=== PATIENT | female | born 1970 | race Caucasian/White ===

== ENCOUNTER 2016-09-15 06:53 | Emergency (ER) | payer BC ==
[~2016-09-15] VITALS: Ht 170.2 cm; Wt 129.7 kg
[~2016-09-15 06:53] MED LIST: AMLO-110 PO; BIOT1CAP9 PO; CHOL1000 PO; CLIN1LOT5 TOP; CLR10 PO; MTR600X PO; MULT-663 PO; OMEG12006 PO; OXYC-57 PO; SYN150 PO; VITBC PO; XPNIN INH; [UNRECOGNIZED DRUG - OTHER] PO
[2016-09-15 06:56] VITALS: TEMP 36.6; Ht 170.2 cm; Wt 129.7 kg
[2016-09-15] MEDS ORDERED: PROPARACAINE HCL 0.5% OP SOLN 15 ML BTL OP STA (06:58)
[2016-09-15] MEDS ORDERED: CIPROFLOXACIN HCL 0.3% OP SOLN 2.5 ML BTL OP STA (07:43)
--- NOTE | 2016-09-15 07:48 | EMERGENCY ROOM VISIT NOTE ---
History Report prepared by Vonnie: Tereso Cabrera Under the Supervision of: Dr. Paul Hagan M.D. First contact with patient: 06:58 Chief Complaint: EYE PAIN Stated Complaint: LEFT EYE PAIN History of Present Illness The patient is a 45 year old female who presents to the Emergency Room with complaints of a resolved "gritty" sensation in her left eye that started this morning upon waking. She states that she was rubbing her left eye this morning upon waking. The eye then suddenly felt like it was bulging and she felt a gritty sensation. She says that her eye would not close, and she had to compress her eye to feel like it was shut again. The patient denies any eye pain. Her pain has resolved after Alcaine was applied here in the ER. She states that this sensation in her eye has never happened before, and she says she has not had any trauma to the eye. The patient denies any issues with her sight, any changes in appetite, any hot flashes, or any changes in sleep. She does see an eye doctor for her glasses. She does not wear contacts. She says that she normally irrigates her eyes every night, but she did not last night. The patient has a past medical history of Grave's Disease in the 1980s. She does have a lot of allergies including dander, dust, and Bactrim antibiotic, but she denies being exposed to anything unusual or atypical recently. The patient has a history of thyroid issues. Source of History: patient Onset: This morning upon waking Position: eye (left) Quality: other (eye felt like it was bulging, "gritty" sensation) Timing: resolved Note: Associated symptoms: Denies any eye pain, sight issues, changes in appetite, hot flashes, or any changes in sleep. Review of Systems See HPI for pertinent positives & negatives. A total of 10 systems reviewed and were otherwise negative. Past Medical & Surgical Medical Problems: (1) Anxiety (2) HYPERTENSION NOS (3) HYPOTHYROIDISM NOS Family History Cancer Hypertension Social History Smoking Status: Never Smoker Marital Status: Housing Status: lives with family Occupation Status: employed Current/Historical Medications Scheduled Amlodipine (Norvasc), 5 MG PO QPM Biotin (Biotin Ultra Strength), 1 CAP PO QPM Cholecalciferol (Vitamin D3), 1,000 INTER.UNIT PO QPM Levothyroxine (Synthroid *), 0.15 MG PO QAM Loratadine (Claritin), 10 MG PO QAM Multiple Minerals W/ Vitamins (Citracal Plus), 1 TAB PO HS [place]-3 Fatty Acids ([place] 3), 1 CAP PO QPM Vitamin B Complex (Vitamin B Complex), 1 TAB PO QPM [Fiber Advantage], 1 TAB PO QAM Scheduled PRN Clindamycin Phosphate (Topical (Clindamycin Phosphate), 1 DOSE TOP BID PRN for PRN Ibuprofen (Ibuprofen), 600 MG PO Q6H PRN for Pain,GOMEZ,cramping,or fever Levalbuterol Tartrate (Xopenex Hfa), 2 PUFFS INH Q4 PRN for SOB/Wheezing Oxycodone/Acetaminophen 5MG/325MG (Percocet 5MG/325MG), 1-2 TAB PO Q4H PRN for Pain (pain scale 1-5) Allergies Coded Allergies: Penicillins (Verified Allergy, Intermediate, HIVES, 01/19/15) Sulfa Antibiotics (Verified Allergy, Intermediate, hives, 01/19/15) Cat Dander (Verified Allergy, Unknown, HAY FEVER, 01/19/15) Dog Dander (Verified Allergy, Unknown, HAY FEVER, 01/19/15) Dust (Verified Allergy, Unknown, HAY FEVER, 01/19/15) Molds and Smuts (Verified Allergy, Unknown, HAY FEVER, 01/19/15) POLLEN (Verified Allergy, Unknown, HAY FEVER, 01/19/15) Petrolatum (Verified Allergy, Unknown, RASH, ITCHING, 01/19/15) Physical Exam Vital Signs Date Time Temp Pulse Resp B/P Pulse Ox O2 Delivery O2 Flow Rate FiO2 09/15/16 08:00 88 18 185/112 97 09/15/16 06:56 36.6 95 20 159/100 98 Room Air Physical Exam GENERAL: Patient is a healthy-appearing well-nourished HEAD: Normocephalic atraumatic EYES: Ocular movements intact pupils equal and react to light. Diffuse dye uptake to cornea of left eye. OROPHARYNX mucous membranes are moist no exudates present no erythema or edema present NECK: Supple no nuchal rigidity CHEST: Good equal expansion LUNGS: Clear and equal to auscultation CARDIAC: Normal S1 and S2 ABDOMEN: Soft nontender no guarding BACK: No CVA tenderness EXTREMITIES: No pain upon palpation normal muscle strength in all groups no clubbing cyanosis or edema NEURO: Patient is following commands is answering questions appropriately. Alert and oriented x3 Cranial Nerves 2-12 grossly intact Medical Decision & Procedures Medications Administered Medications (Trade) Dose Ordered Sig/Erasmo Route Start Time Stop Time Status Last Admin Dose Admin Ciprofloxacin HCl (Ciprofloxacin 0.3% Op Soln) 1 drops NOW STAT OP 09/15/16 07:43 09/15/16 07:44 DC 09/15/16 07:56 1 DROPS ED Course 0658: Ordered Alcaine 0.5% Oph Soln 2 drops OP. 0720: Past medical records reviewed. The patient was evaluated in room A9B. A complete history and physical examination was performed. The patient verbally expressed understanding and agreement of the treatment plan. The patient will be discharged. 0743: Ordered Ciprofloxacin 0.3% Op Soln 1 drops OP. Medical Decision Differential diagnoses include: iritis, conjunctivitis, glaucoma. This is a 45-year-old female who presents emergency department complaining of left eye pain. On physical exam with fluorescein stain the patient has a large superficial area of erosion to the cornea. For this reason I will start the patient on antibiotics. She is allergic to sulfa so she was started on Cipro. In addition I also irrigated the patient's eye using normal saline solution as much as she could tolerate. The patient is refusing pain medications however I stressed the need for follow-up with her eye doctor. Patient was in agreement with the treatment plan. Impression Primary Impression: Chemosis Scribe Attestation The scribe's documentation has been prepared under my direction and personally reviewed by me in its entirety. I confirm that the note above accurately reflects all work, treatment, procedures, and medical decision making performed by me. Departure Information Dispostion Home / Self-Care Referrals Alexsandra Valderrama DO (PCP) Forms HOME CARE DOCUMENTATION FORM, IMPORTANT VISIT INFORMATION, WORK / SCHOOL INSTRUCTIONS Patient Instructions My [facility] Additional Instructions Use 1-2 drops q2 hours while awake Follow up with optho You have been examined and treated today on an emergency basis only. This is not a substitute for, or an effort to provide, complete comprehensive medical care. It is impossible to recognize and treat all injuries or illnesses in a single emergency department visit. It is therefore important that you follow up closely with Dr Valderrama. Call as soon as possible for an appointment. Thank you for your time and consideration. I look forward to speaking with you again soon. Please don't hesitate to call us if you have any questions. Problem Qualifiers Primary Impression: Chemosis Laterality: left Qualified Codes: H11.422 - Conjunctival edema, left eye
[2016-09-15 08:00] VITALS: BP 185/112; PULSE 88; O2SAT 97
== END 2016-09-15 08:03 | disposition home or self-care (01) ==
LOC: C.EDB 06:54 → C.EDA 08:03
DX: H11.422 Conjunctival edema, left eye (principal); F41.9 Anxiety disorder, unspecified; I10 Essential (primary) hypertension; E03.9 Hypothyroidism, unspecified; Z79.899 Other long term (current) drug therapy

== ENCOUNTER → 2016-09-16 | Outpatient (CLI) | payer BC ==
[2016-09-16 16:53] LABS: BLOOD UREA NITROGEN 14 mg/dl (7-18); BUN/CREATININE RATIO 17.1 (10-20); CALCIUM 8.8 mg/dl (8.5-10.1); CARBON DIOXIDE 29 mmol/L (21-32); CHLORIDE 103 mmol/L (98-107); CREATININE 0.81 mg/dl (0.60-1.20); GLUCOSE 75 mg/dl (70-99); POTASSIUM 4.1 mmol/L (3.5-5.1); SODIUM 140 mmol/L (136-145)
[2016-09-19 14:46] LABS: MICROSOMAL AB 2 IU/ML (<9)
== END | disposition home or self-care (01) ==
LOC: C.LABBC 15:15
PROVIDERS: ATTEND Family Medicine
DX: I10 Essential (primary) hypertension (principal); E03.9 Hypothyroidism, unspecified

== ENCOUNTER → 2017-05-19 | Outpatient (CLI) | payer BC ==
--- NOTE | 2017-05-19 16:16 | DIAGNOSTIC IMAGING REPORT ---
CT OF THE ORBITS WITHOUT CONTRAST CLINICAL HISTORY: GRAVE'S DISEASE COMPARISON STUDY: No previous studies for comparison. TECHNIQUE: Axial images through the orbits were obtained without intravenous contrast. Coronal reformats were viewed. FINDINGS: The extraocular muscles are symmetric in appearance. No orbital mass is identified on this unenhanced exam. Note is made of moderate to marked exophthalmos. Visualized portions of the brain parenchyma are suboptimally assessed on this unenhanced exam but appear unremarkable. There is minimal mucosal thickening of the sinuses. Mastoid air cells are clear. No significant osseous abnormalities are present. The superior ophthalmic veins are not dilated. IMPRESSION: 1. Normal CT appearance of the extraocular muscles. 2. Moderate to marked exophthalmos, a finding that is likely related to Graves' disease. Electronically signed by: Serg Mendiola M.D. 05/19/2017 4:14 PM Dictated Date/Time: 05/19/2017 4:09 PM
== END | disposition home or self-care (01) ==
LOC: C.CTS 15:39
PROVIDERS: ATTEND Ophthalmology Ophthalmic Plastic and Reconstructive Surgery
DX: E05.00 Thyrotoxicosis with diffuse goiter without thyrotoxic crisis or storm (principal)

== ENCOUNTER → 2017-06-30 | Outpatient (CLI) | payer BC ==
[2017-06-30 17:05] LABS: BASO % 0.3 %; BASO ABS # 0.03 K/uL (0-0.2); COMPLETE YES; EOS % 1.2 %; IG% 0.2 %; LYMPH % 30.7 %; LYMPH ABS # 2.81 K/uL (1.2-3.4); MEAN CELL VOLUME 93.9 fL (80-100); MEAN CORPUSCULAR HEMOGLOBIN 30.5 pg (25-34); MEAN CORPUSCULAR HGB CONC 32.5 g/dl (32-36); MEAN PLATELET VOLUME 9.7 fL (7.4-10.4); MONO % 7.7 %; NEUT % 59.9 %; PLATELET COUNT 323 K/uL (130-400); RED BLOOD COUNT 4.26 M/uL (4.2-5.4); WHITE BLOOD COUNT 9.14 K/uL (4.8-10.8)
== END | disposition home or self-care (01) ==
LOC: C.CPL 16:45
PROVIDERS: ATTEND Ophthalmology Ophthalmic Plastic and Reconstructive Surgery
DX: Z01.818 Encounter for other preprocedural examination (principal); H05.243 Constant exophthalmos, bilateral; E05.00 Thyrotoxicosis with diffuse goiter without thyrotoxic crisis or storm

== ENCOUNTER 2023-11-27 19:23 | Inpatient (IN) ==
[2023-11-27] MEDS ORDERED: VANCOMYCIN CONSULT ACTIVE PRN (20:49)
--- NOTE | 2023-11-27 20:59 | Emergency Department Note ---
Impression & Plan Left leg pain, Cellulitis, Leukocytosis, Anemia, Immunocompromised, Failure of outpatient treatment ED Provider Note NAME: AJ JAMESON AGE: 52 SEX: F : 1970 ARRIVES VIA: Walk-In INFORMANT: [Patient] ED PROVIDER(S): [Moo Akers MD] CHIEF COMPLAINT: Leg pain HISTORY OF PRESENT ILLNESS: The patient is a 52-year-old female who states that she noticed what she thought was a bug bite about 20 days ago along the left leg. She saw an orthopedist who felt it was likely a bite. The patient states that on the , she was placed on Keflex. This did not help. 3 days ago, she saw a physician who felt that she needed a change in medication. She was placed on doxycycline. Ultrasound was done of the leg and there was no DVT. The patient states that things are not getting better even despite the new antibiotic. She now has an area of erythema to the anterior left knee. The original area of erythema was to the lateral left tib-fib. The patient denies fever, she does have pain when she tries to walk. She is currently on steroids for a colitis flare. The patient was referred today to the ER because things are not improving. PMHx/PSHx/Social Hx: See Below PHYSICAL EXAM: GENERAL: Patient is in no acute distress. HEENT: No acute trauma, normocephalic atraumatic, mucous membranes moist, no nasal congestion. NECK: No stridor, no adenopathy, no meningismus, trachea is midline. LUNGS: Clear to auscultation bilaterally, no wheeze, no rhonchi, breath sounds equal. HEART: Mildly tachycardic, subtle systolic murmur, regular rhythm. ABDOMEN: Soft, nontender, no peritonitis. EXTREMITIES: No cyanosis, full range of motion of all the joints without pain or difficulty. The patient has a 6 to 8 cm area of erythema to the lateral left mid tib-fib. This area is tender to touch. There is some warmth. The erythema spread beyond the outlined margins. There is also a 3 cm area of erythema to the left anterior knee. NEUROLOGIC: Oriented x 3, no acute motor or sensory deficits, no focal weakness. SKIN: No jaundice, no diaphoresis. DIFFERENTIAL DIAGNOSIS: Abscess, deep tissue infection, cellulitis, failed outpatient management, tickborne illness, immunocompromise, among others. EMERGENCY DEPARTMENT PROCEDURES: MEDICAL DECISION MAKING: There is a mild leukocytosis at 13,000, this certainly could be consistent with infection. The patient was somewhat anemic with a hemoglobin of 9.4. There was an elevated platelet count at 602. A slight hypokalemia was seen, no need for emergent correction. Magnesium is low at 1.6. No renal failure. No concerning liver enzyme elevation. Lactic acid level was not elevated making severe sepsis less likely. Lyme disease testing was negative. Left leg CT imaging is currently pending. On exam, the patient was mildly tachycardic. She had a spreading left lower extremity cellulitis. She had erythema spreading beyond her outlined regions. The patient presents with around 20 days of symptoms. She has already been on Keflex and is now on doxycycline. Things continue to worsen. Patient was given IV cefepime, IV vancomycin. She was given IV saline and IV magnesium. Patient is in need of a hospital stay. She is failing outpatient treatment. She is immunocompromised and I do think IV antibiotic therapy is indicated. She may require surgical intervention if the CT imaging shows abscess. I did speak with the patient and case management, the on-call hospitalist was consulted. Prior/Outside records/notes reviewed: None Imaging/x-ray results per my interpretation: Chronic Medical/Social conditions affecting care: Colitis with current immunocompromise. Care/Management discussed with: Case management, the on-call hospitalist. Level of care consideration(s): After review of the information above and other included data: --I believe the patient requires escalation of care to admission DISPOSITION: Admission Past Med/Surg History Medical History Hemorrhoids Submucous leiomyoma of uterus Blood in stool reason for up coming colonoscopy History of COVID-19 x2, most recent Jul 2021 > not hospitalized Anxiety also gets very anxious about medical procedures Asthma does not use res inh > well controlled per pt Hypothyroidism Hypertension Eczema Allergic conjunctivitis Abnormal uterine bleeding (AUB) Fibroid, uterine resolved Enterocele Surgical History Hx of breast biopsy benign Hx of eye surgery bilat for thyroid eye issues History of tooth extraction Hx of colonoscopy History of ERCP 2012 Hx of cholecystectomy 2012 H/O: hysterectomy 2014 Family History (Updated 09/18/23 @ 15:12 by Maria Fernanda Bass RN) Mother Colorectal cancer Hypertension Environmental allergies Asthma Grandmother (Maternal) Stroke Father Skin cancer Environmental allergies Grandfather (Maternal) Myocardial infarction Other No family history of adverse response to anesthesia No family history of bleeding disorder Denies family history of Ovarian cancer Prostate cancer Breast cancer Social History Smoking Status: Never smoker Second Hand Exposure: No; Do You Dip or Chew Tobacco: No; Hx Alcohol Use: No Hx Substance Use: No Preferred Language: Uzbek Communication Ability: Effective Coatings Inspector Required: No Beliefs That Will Affect Care: None marital status: Current Living Situation: Spouse current occupational status: employed current occupation: Teacher Feels Safe at Home: Yes Assistive Devices: Glasses Allergies Allergies Allergy/AdvReac Type Severity Reaction Status Date / Time latex Allergy Intermediate Hives Verified 11/27/23 23:04 Penicillins Allergy Intermediate HIVES Verified 11/27/23 23:04 Sulfa (Sulfonamide Allergy Intermediate hives Verified 11/27/23 23:04 Antibiotics) petrolatum, yellow Allergy Unknown RASH, Verified 11/27/23 23:04 ITCHING Home Meds Home Medications Medication Instructions Recorded Confirmed amlodipine 2.5 mg tablet 2.5 mg PO DAILY 11/27/23 11/27/23 budesonide 3 mg 9 mg PO QAM 11/27/23 11/27/23 capsule,delayed,extended release cetirizine 10 mg tablet (Zyrtec) 10 mg PO DAILY 11/27/23 11/27/23 doxycycline hyclate 100 mg capsule 100 mg PO .DAILY FOR 10 DAYS 11/27/23 11/27/23 fluoxetine 40 mg capsule 40 mg PO DAILY 11/27/23 11/27/23 fluticasone propionate 50 1 spray intranasal DAILY PRN Nasal 11/27/23 11/27/23 mcg/actuation nasal Congestion spray,suspension (Flonase Allergy Relief) levothyroxine 175 mcg tablet 175 mcg PO QAM 11/27/23 11/27/23 (Synthroid) mesalamine 1.2 gram tablet,delayed 2.4 g PO DAILY 11/27/23 11/27/23 release Results & Data (ED) Vital Signs Vital Signs - 24 hr 11/27/23 19:32 11/27/23 19:49 11/27/23 20:00 Temperature 36.6 C Temperature Source Temporal Artery Scan Pulse Rate 95 H Pulse Rate [Finger] 87 85 Respiratory Rate 18 16 17 Respiratory Depth Normal Blood Pressure 146/87 H Blood Pressure [Right Arm] 151/93 H 154/89 H Blood Pressure Mean 106 Blood Pressure Mean [Right Arm] 112 110 Pulse Oximetry 97 97 97 Oxygen Delivery Method Room Air Room Air Sepsis Recent Fever Within 48 Hours No Sepsis New/Unexplained Change in Mental Status N/A Sepsis Action Taken by Nursing No Action Required 11/27/23 22:00 Temperature Temperature Source Pulse Rate Pulse Rate [Finger] 88 Respiratory Rate 17 Respiratory Depth Blood Pressure Blood Pressure [Right Arm] 150/99 H Blood Pressure Mean Blood Pressure Mean [Right Arm] 116 Pulse Oximetry 97 Oxygen Delivery Method Room Air Sepsis Recent Fever Within 48 Hours Sepsis New/Unexplained Change in Mental Status Sepsis Action Taken by [facility] Medications Current Medication List: was personally reviewed by me Laboratory Data Attestation: I reviewed the patient's lab results. 11/27/23 21:09 11/27/23 21:09 Lab Results 11/27/23 Range/Units 21:09 WBC 13.26 H (4.8-10.8) K/ul RBC 3.61 L (4.20-5.40) M/uL Hgb 9.4 L (12.0-16.0) g/dl Hct 30.7 L (37.0-47.0) % MCV 85.0 (80.0-100.0) fL MCH 26.0 (25.0-34.0) pg MCHC 30.6 L (32.0-36.0) g/dL RDW Std Deviation 49.1 H (36.4-46.3) fL RDW Coeff of Alphonse 15.8 H (11.5-14.5) % Plt Count 602 H (130-400) K/uL MPV 8.7 L (9.4-12.4) fL Immature Gran % (Auto) 0.6 % Neut % (Auto) 76.0 % Lymph % (Auto) 16.4 % [place] % (Auto) 5.8 % Eos % (Auto) 1.0 % Baso % (Auto) 0.2 % Neut # (Auto) 10.07 H (1.40-6.50) K/uL Lymph # (Auto) 2.18 (1.20-3.40) K/uL [place] # (Auto) 0.77 H (0.11-0.59) K/uL Eos # (Auto) 0.13 (0.00-0.50) K/uL Baso # (Auto) 0.03 (0.00-0.20) K/uL Immature Gran # (Auto) 0.08 (0.01-0.20) K/uL Sodium 137 (136-145) mmol/L Potassium 3.4 L (3.5-5.1) mmol/L Chloride 104 (98-107) mmol/L Carbon Dioxide 27 (21-32) mmol/L Anion Gap 6 (3-11) BUN 16 (6-23) mg/dl Creatinine 1.18 (0.6-1.2) mg/dl Est Cr Clr Drug Dosing 70.2 ml/min Est GFR ( Amer) 60.6 ml/min Est GFR (Non-Af Amer) 52.2 ml/min BUN/Creatinine Ratio 13.6 (10-20) Glucose 109 H (70-99(Fasting)) mg/dl Lactate 1.4 (0.4-2.0) mmol/L Calcium 9.0 (8.6-10.3) mg/dl Magnesium 1.6 L (1.7-2.4) mg/dl Total Bilirubin 0.2 (0.2-1.0) mg/dl AST 9 L (13-39) U/L ALT 8 (7-52) U/L Alkaline Phosphatase 73 (34-104) U/L Total Protein 7.8 (6.0-8.3) gm/dl Albumin 3.4 (3.4-5.0) gm/dl Globulin 4.4 H (2.5-4.0) gm/dl Albumin/Globulin Ratio 0.8 L (0.9-2) Lyme Disease Screen Negative (Negative) Administered Medications Vancomycin HCl 2,750 mg/ (Sodium Chloride) 555 mls @ 180 mls/hr IV NOW ONE Stop: 11/27/23 23:53 Last Admin: 11/27/23 22:56 Dose: 180 mls/hr Documented By: SKM Discontinued Medications Sodium Chloride (Nss) 1,000 mls @ 999 mls/hr IV .Q1H1M ONE Stop: 11/27/23 21:49 Last Infusion: 11/27/23 22:26 Dose: Infused Documented By: Admin: 11/27/23 21:20 Dose: 999 mls/hr Documented By: KELIN Cefepime HCl (Maxipime) 2,000 mg in 20 mls @ 5 mls/min IV NOW STA; Protocol Stop: 11/27/23 20:52 Last Admin: 11/27/23 21:20 Dose: 5 mls/min Documented By: KELIN Magnesium Sulfate/Dextrose (Magnesium Sulfate / D5w) 1 gm in 100 mls @ 100 mls/hr IV NOW STA Stop: 11/27/23 23:06 Last Admin: 11/27/23 22:26 Dose: Not Given Documented By: KELIN Discharge Plan Visit Data Chief Complaint: Leg Injury/Pain Stated Complaint: SWOLLEN LEG, POSSIBLE BUG BITE ED Provider: Moo Akers Discharge Problem: Left leg pain, Cellulitis, Leukocytosis, Anemia, Immunocompromised, Failure of outpatient treatment Patient Disposition: Admitted As Inpatient Condition: Fair Forms Stand Alone Forms: [facility] Prescriptions Prescriptions: No Action fluoxetine 40 mg capsule 40 mg PO DAILY levothyroxine [Synthroid] 175 mcg tablet 175 mcg PO QAM doxycycline hyclate 100 mg capsule 100 mg PO .DAILY FOR 10 DAYS Rx Instructions: started 11/24/23 cetirizine [Zyrtec] 10 mg Tablet 10 mg PO DAILY amlodipine 2.5 mg tablet 2.5 mg PO DAILY budesonide 3 mg capsule,delayed,extend.release 9 mg PO QAM mesalamine 1.2 gram tablet,delayed release (DR/EC) 2.4 g PO DAILY fluticasone propionate [Flonase Allergy Relief] 50 mcg/actuation [place],Suspension 1 spray INTRANASAL DAILY PRN (Reason: Nasal Congestion) Rx Instructions: administer into each nostril Referrals Referrals: Talita Das MD [Primary Care Provider] - Discharge Problem: Cellulitis Qualifiers: Site of cellulitis: extremity Site of cellulitis of extremity: lower extremity Laterality: left Qualified Code(s): L03.116 - Cellulitis of left lower limb Leukocytosis Qualifiers: Leukocytosis type: unspecified Qualified Code(s): D72.829 - Elevated white blood cell count, unspecified Anemia Qualifiers: Anemia type: unspecified type Qualified Code(s): D64.9 - Anemia, unspecified
[2023-11-27] MEDS: CEFEPIME 2,000 MG/20 ML VIAL IV STA (21:20)
[2023-11-27] MEDS: SODIUM CHLORIDE 0.9% 1,000 ML IV ONE (21:20)
[2023-11-27 21:45] LABS: Basophils # (auto) 0.03 K/uL (0.00-0.20); Basophils % (auto) 0.2 %; Eosinophils # (auto) 0.13 K/uL (0.00-0.50); Hematocrit (blood only) 30.7 % (37.0-47.0); Hemoglobin 9.4 g/dl (12.0-16.0); Immature Granulocytes # (auto) 0.08 K/uL (0.01-0.20); Immature Granulocytes % (auto) 0.6 %; Lymphocytes # (auto) 2.18 K/uL (1.20-3.40); Lymphocytes % (auto) 16.4 %; Mean Corpuscular Hgb Conc 30.6 g/dL (32.0-36.0); Mean Platelet Volume 8.7 fL (9.4-12.4); Monocytes # (auto) 0.77 K/uL (0.11-0.59); Monocytes % (auto) 5.8 %; Neutrophils # (auto) 10.07 K/uL (1.40-6.50); Platelet Count 602 K/uL (130-400); RDW Coefficient of Variation 15.8 % (11.5-14.5); RDW Standard Deviation 49.1 fL (36.4-46.3); Red Blood Count 3.61 M/uL (4.20-5.40); White Blood Count 13.26 K/ul (4.8-10.8)
[2023-11-27 22:04] LABS: Albumin Globulin Ratio 0.8 (0.9-2); Albumin Level 3.4 gm/dl (3.4-5.0); BUN Creatinine Ratio 13.6 (10-20); Bilirubin,Total 0.2 mg/dl (0.2-1.0); Creatinine Clr Calc Pharmacy 70.2 ml/min; Est GFR (African American) 60.6 ml/min; Est GFR (Non-African American) 52.2 ml/min; Globulin 4.4 gm/dl (2.5-4.0); Magnesium 1.6 mg/dl (1.7-2.4); Potassium 3.4 mmol/L (3.5-5.1); Total Protein 7.8 gm/dl (6.0-8.3)
[2023-11-27] MEDS: MAGNESIUM SULFATE / D5W 1 GM/100 ML BAG IV STA (22:26)
[2023-11-27] MEDS: VANCOMYCIN HCL 2,750 MG in SODIUM CHLORIDE 0.9% 500 ML IV ONE (22:56)
--- NOTE | 2023-11-27 23:52 | History & Physical Report ---
Date of Service November 27, 2023 Assessment & Plan (1) Cellulitis of left lower extremity: (2) Left knee pain: (3) Failure of outpatient treatment: (4) Immunocompromised: (5) Ulcerative colitis: (6) Anemia: (7) Anxiety: (8) Allergic rhinitis: (9) Hypertension: (10) Hypothyroidism: Plan Left lower extremity cellulitis- Failure of outpatient treatment with Keflex and then doxycycline Considered immunocompromised on budesonide Continue vancomycin IV and cefepime IV begun in the ED Lyme testing negative ordered by ED Add anaplasmosis, babesiosis and ehrlichiosis testing Patient had outpatient MRI scheduled for left knee, which will be done inpatient along with left lower extremity assess for possible muscle and/or bone of the left vulva due to immunocompromise state Ulcerative colitis- Continue mesalamine and budesonide Patient following with [facility], and has another appointment in a week or so to pursue more aggressive therapy, possibly Entyvio Status post 1 L normal saline in the ED Anemia- Likely secondary to blood loss from ulcerative colitis, which has been ongoing for several months now Consider tickborne illness such as babesiosis due to presence of rash, but no white that she was aware of Follow laboratory serially Hypokalemia/hypomagnesemia- Status post magnesium sulfate 1 g IV for magnesium level 1.6 For potassium 3.4, recheck laboratories in a.m. History of Present Illness Chief Complaint: The patient presents to the emergency department due to concerns regarding persistent left lower extremity redness, swelling and pain, and ongoing left knee pain, despite a course of Keflex, and then recent change to doxycycline, with negative DVT studies in the outpatient setting Primary Care Provider: Talita Das MD The patient is a 52-year-old female with a past medical history including ulcerative colitis on chronic budesonide and mesalamine, cellulitis of left lower extremity, anxiety, hypothyroidism, hypertension, allergic rhinitis and mild obesity. She began treatment for a left lower extremity infection on 11/13 with Keflex, and was then changed to doxycycline on 11/23, and that they had negative DVT studies bilateral lower extremities. Due to persistence and worsening of symptoms, she presents to the ED for further assessment. Allergies Allergy/AdvReac Type Severity Reaction Status Date / Time latex Allergy Intermediate Hives Verified 11/27/23 23:04 Penicillins Allergy Intermediate HIVES Verified 04/29/24 23:04 Sulfa (Sulfonamide Allergy Intermediate hives Verified 11/27/23 23:04 Antibiotics) petrolatum, yellow Allergy Unknown RASH, Verified 11/27/23 23:04 ITCHING nickel Allergy Itching Verified 11/28/23 03:25 Home Medications Medication Instructions Recorded Confirmed Type amlodipine 2.5 mg tablet 2.5 mg PO DAILY 11/27/23 11/27/23 History budesonide 3 mg 9 mg PO QAM 11/27/23 11/27/23 History capsule,delayed,extended release cetirizine 10 mg tablet (Zyrtec) 10 mg PO DAILY 11/27/23 11/27/23 History doxycycline hyclate 100 mg capsule 100 mg PO .DAILY FOR 10 DAYS 11/27/23 11/27/23 History fluoxetine 40 mg capsule 40 mg PO DAILY 11/27/23 11/27/23 History fluticasone propionate 50 1 spray intranasal DAILY PRN Nasal 11/27/23 11/27/23 History mcg/actuation nasal Congestion spray,suspension (Flonase Allergy Relief) levothyroxine 175 mcg tablet 175 mcg PO QAM 11/27/23 11/27/23 History (Synthroid) mesalamine 1.2 gram tablet,delayed 2.4 g PO DAILY 11/27/23 11/27/23 History release Past Med/Surg History Medical History (Updated 11/28/23 @ 06:04 by Blake Sanderson MD) Left knee pain Hemorrhoids Submucous leiomyoma of uterus Blood in stool reason for up coming colonoscopy History of COVID-19 x2, most recent Jul 2021 > not hospitalized Anxiety also gets very anxious about medical procedures Asthma does not use res inh > well controlled per pt Hypothyroidism Hypertension Eczema Allergic conjunctivitis Abnormal uterine bleeding (AUB) Fibroid, uterine resolved Enterocele Surgical History Hx of breast biopsy benign Hx of eye surgery bilat for thyroid eye issues History of tooth extraction Hx of colonoscopy History of ERCP 2013 Hx of cholecystectomy 2013 H/O: hysterectomy 2015 Family History (Updated 09/18/23 @ 15:12 by Maria Fernanda Bass RN) Mother Colorectal cancer Hypertension Environmental allergies Asthma Grandmother (Maternal) Stroke Father Skin cancer Environmental allergies Grandfather (Maternal) Myocardial infarction Other No family history of adverse response to anesthesia No family history of bleeding disorder Denies family history of Ovarian cancer Prostate cancer Breast cancer Social History Smoking Status: Never smoker Second Hand Exposure: No; Do You Dip or Chew Tobacco: No; Hx Alcohol Use: No Hx Substance Use: No Preferred Language: Argentine Communication Ability: Effective Finish Specialist Required: No Beliefs That Will Affect Care: None marital status: Current Living Situation: Spouse and Family Current Living Situation Comment: lives with and 2 adult children in 2 story home current occupational status: employed current occupation: Teacher Other Information That Helps Us Care for You: No Feels Safe at Home: Yes Safety Concerns: Feels Safe At This Time Assistive Devices: None Review of Systems Review of Systems: The patient denies chest pain, palpitations, shortness of breath, dyspnea on exertion, cough, sore throat, fevers, chills, sweats, weight change, fatigue, nausea, vomiting, blood in urine or stool, dysuria, urinary frequency or urgency, lightheadedness, dizziness, headache, memory loss, loss of consciousness, rash, abnormal bruising or bleeding, imbalance, focal weakness, numbness or tingling in arms or legs, back or neck pain, or night sweats. The review of systems is otherwise negative other than for that already noted above, and at least 10 systems have been reviewed. Physical Exam Physical Exam: The patient is awake, alert and oriented 3, well developed and well nourished, normocephalic and atraumatic, lying in bed and in no acute distress. HEENT--PERRL, EOMI, mucous membranes and oropharynx dry. Neck--supple. No JVD. No bruits. Thyroid normal, trachea midline, no adenopathy. Heart--normal S1 and S2. No murmurs, rubs or gallops. Lungs--clear bilaterally, no respiratory distress, no accessory muscle use. Abdomen--normal bowel sounds and soft. Nontender. Nondistended, no hernias or masses, no organomegaly. Extremities--no cyanosis or clubbing. No edema. There are good distal pulses b/l. Dermatologic--left lateral calf with erythema, induration and warmth extending to ankle. Left knee 2 small areas of erythema laterally. Areas marked for progression Neurologic--cranial nerves II through XII grossly intact. Rheumatologic--normal range of motion. Psychiatric--normal affect. Results & Data Results & Data Vital Signs (Past 12 Hours) Vital Signs Temp Pulse Pulse Resp BP BP Pulse Ox 11/27/23 22:00 88 17 150/99 H 97 11/27/23 20:00 85 17 154/89 H 97 11/27/23 19:49 87 16 151/93 H 97 11/27/23 19:32 36.6 C 95 H 18 146/87 H 97 O2 Del Method 11/27/23 22:00 Room Air 11/27/23 20:00 Room Air 11/27/23 19:49 11/27/23 19:32 Room Air Laboratory Results Laboratory Results WBC 12.36 K/ul (4.8-10.8) H 11/28/23 05:16 RBC 3.27 M/uL (4.20-5.40) L 11/28/23 05:16 Hgb 8.4 g/dl (12.0-16.0) L 11/28/23 05:16 Hct 27.6 % (37.0-47.0) L 11/28/23 05:16 MCV 84.4 fL (80.0-100.0) 11/28/23 05:16 MCH 25.7 pg (25.0-34.0) 11/28/23 05:16 MCHC 30.4 g/dL (32.0-36.0) L 11/28/23 05:16 RDW Std Deviation 48.7 fL (36.4-46.3) H 11/28/23 05:16 RDW Coeff of Alphonse 15.8 % (11.5-14.5) H 11/28/23 05:16 Plt Count 559 K/uL (130-400) H 11/28/23 05:16 MPV 8.7 fL (9.4-12.4) L 11/28/23 05:16 Immature Gran % (Auto) 0.9 % 11/28/23 05:16 Neut % (Auto) 74.0 % 11/28/23 05:16 Lymph % (Auto) 18.0 % 11/28/23 05:16 Hughes % (Auto) 5.8 % 11/28/23 05:16 Eos % (Auto) 1.1 % 11/28/23 05:16 Baso % (Auto) 0.2 % 11/28/23 05:16 Neut # (Auto) 9.14 K/uL (1.40-6.50) H 11/28/23 05:16 Lymph # (Auto) 2.22 K/uL (1.20-3.40) 11/28/23 05:16 Hughes # (Auto) 0.72 K/uL (0.11-0.59) H 11/28/23 05:16 Eos # (Auto) 0.14 K/uL (0.00-0.50) 11/28/23 05:16 Baso # (Auto) 0.03 K/uL (0.00-0.20) 11/28/23 05:16 Immature Gran # (Auto) 0.11 K/uL (0.01-0.20) 11/28/23 05:16 Sodium 137 mmol/L (136-145) 11/27/23 21:09 Potassium 3.4 mmol/L (3.5-5.1) L 11/27/23 21:09 Chloride 104 mmol/L (98-107) 11/27/23 21:09 Carbon Dioxide 27 mmol/L (21-32) 11/27/23 21:09 Anion Gap 6 (3-11) 11/27/23 21:09 BUN 16 mg/dl (6-23) 11/27/23 21:09 Creatinine 1.18 mg/dl (0.6-1.2) 11/27/23 21:09 Est Cr Clr Drug Dosing 70.2 ml/min 11/27/23 21:09 Est GFR ( Amer) 60.6 ml/min 11/27/23 21:09 Est GFR (Non-Af Amer) 52.2 ml/min 11/27/23 21:09 BUN/Creatinine Ratio 13.6 (10-20) 11/27/23 21:09 Glucose 109 mg/dl (70-99(Fasting)) H 11/27/23 21:09 Lactate 1.4 mmol/L (0.4-2.0) 11/27/23 21:09 Calcium 9.0 mg/dl (8.6-10.3) 11/27/23 21:09 Magnesium 1.6 mg/dl (1.7-2.4) L 11/27/23 21:09 Total Bilirubin 0.2 mg/dl (0.2-1.0) 11/27/23 21:09 AST 9 U/L (13-39) L 11/27/23 21:09 ALT 8 U/L (7-52) 11/27/23 21:09 Alkaline Phosphatase 73 U/L (34-104) 11/27/23 21:09 Total Protein 7.8 gm/dl (6.0-8.3) 11/27/23 21:09 Albumin 3.4 gm/dl (3.4-5.0) 11/27/23 21:09 Globulin 4.4 gm/dl (2.5-4.0) H 11/27/23 21:09 Albumin/Globulin Ratio 0.8 (0.9-2) L 11/27/23 21:09 Anaplasma Smear See Comment 11/27/23 21:09 Babesia Smear See Comment 11/27/23 21:09 Lyme Disease Screen Negative (Negative) 11/27/23 21:09 Code Status & VTE Plan Code Status Full code VTE Prophylaxis Plan VTE Prophylaxis will be ordered: Yes PG Care Time/CCT Total # of Minutes Spent Total Time Spent with Patient: Total time spent is greater than 50% in coordination of care (as documented) at patient's floor/unit and/or counseling patient: Coding Level of Care Code 47906 INT INP/OBS CARE 3/75MIN Diagnoses Cellulitis of left lower extremity L03.116 Left knee pain M25.562 Failure of outpatient treatment Z78.9 Immunocompromised D84.9 Ulcerative colitis K51.90 Anemia D64.9 Anemia type: unspecified type Anxiety F41.9 Allergic rhinitis J30.9 Hypertension I10 Hypothyroidism E03.9 (6) Anemia Anemia type: unspecified type Qualified Code(s): D64.9 - Anemia, unspecified
[2023-11-28] MEDS ORDERED: FLUTICASONE PROPIONATE NA SPR 16 GM BTL NAE PRN (03:04)
[2023-11-28] MEDS ORDERED: ONDANSETRON INJ 2 MG/ML 2 ML VIAL IV PRN (03:04)
[2023-11-28] MEDS ORDERED: ACETAMINOPHEN 325 MG TAB PO PRN (03:04)
[2023-11-28] MEDS ORDERED: VANCOMYCIN CONSULT ACTIVE PRN (03:04)
--- OUTSIDE RECORDS SUMMARY | 2023-11-28 05:55 | External Medical Summary | Continuity of Care Document ---
Author Name Unknown Organization [facility] [id number] [address] Address [address] [place] [address] [phone] Care Team Providers Care Service Order Taker Name Role Phone DasTalita Primary Care Physician [phone] [facility]counter [facility] [id number] Date(s): 11/24/23 - 11/24/[address], [address] [place] [address] [phone] Discharge Disposition: Home or Self Care Attending Physician: DO Verde Allison B Referring Physician: DO Verde Allison B Allergies, Adverse Reactions, Alerts Substance Reaction Severity Status penicillins Rash Active sulfa drugs Rash Active Cats upper resp symptoms Active Dogs Itching hives, upper resp problems Mild Active Dust upper resp symptoms Active Grass Nasal congestion Active Mold upper resp symptoms Active Trees upper resp symptoms Active Latex rash Active Petroleum Jelly rash and then eczema Acti ve wool rash and eczema Active Allergy Not found in Search 1 eczema rash Active 1polyester Immunizations Given and Recorded Vaccine Date Status Refusal Reason influenza virus vaccine, inactivated 06/13/22 Give n influenza virus vaccine, inactivated 04/23/20 Give n influenza virus vaccine, inactivated 06/14/19 Give n influenza virus vaccine, inactivated 06/12/17 Give n SARS-CoV-2 (COVID-19) mRNA BNT-162b2 vax 1 05/26/21 Recorded SARS-CoV-2 (COVID-19) mRNA BNT-162b2 vax 2 05/26/21 Recorded SARS-CoV-2 (COVID-19) mRNA BNT-162b2 vax 3 10/13/20 Recorded SARS-CoV-2 (COVID-19) mRNA BNT-162b2 vax 4 10/13/20 Recorded SARS-CoV-2 (COVID-19) mRNA BNT-162b2 vax 5 09/22/20 Recorded SARS-CoV-2 (COVID-19) mRNA BNT-162b2 vax 6 09/22/20 Recorded tetanus toxoids-diphtheria, Td (Adult) 7 01/13/16 Recorded tetanus toxoids-diphtheria, Td (Adult) 8 01/13/16 Recorded 1Result Comment: 2021-08-12: Historical information-source unspecified 2Result Comment: 2021-08-12: Historical information-source unspecified 3Result Comment: 2021-08-12: Historical information-source unspecified 4Result Comment: 2021-08-12: Historical information-source unspecified 5Result Comment: 2021-08-12: Historical information-source unspecified 6Result Comment: 2021-08-12: Historical information-source unspecified 7Result Comment: 2021-08-12: Historical information-source unspecified 8Result Comment: 2021-08-12: Historical information-source unspecified Medications amLODIPine 2.5 mg oral tablet Start: 10/18/23 16:02:00 EDT, 1 tab, PO, Daily, Disp# 30 tab, Refills: 6, Pharmacy: [facility] #[id number] Start Date: 10/18/23 Status: Ordered budesonide 3 mg oral delayed release capsule Start: 11/24/23 8:39:00 EDT, 3 cap, Per GI at [facility]. Start Date: 11/24/23 Status: Ordered doxycycline hyclate 100 mg oral capsule Start: 11/24/23 8:21:00 EDT, 1 cap, PO, Daily, Disp# 10 cap, Pharmacy: [id number] Start Date: 11/24/23 Stop Date: 12/04/23 Status: Ordered FLUoxetine 40 mg oral capsule Start: 08/28/23 12:11:00 EST, 1 cap, PO, Daily, Disp# 30 cap, Refills: 6, Pharmacy: [facility] #[id number] Start Date: 08/28/23 Status: Ordered levalbuterol CFC free 45 mcg/inh inhalation aerosol Start: 07/07/23 11:31:00 EST, See Instructions, Disp# 15 g, Refills: 1, inhale 1 puff every 4 hoursif needed for wheezing, Pharmacy: [facility] #[id number] Start Date: 07/07/23 Status: Ordered levothyroxine 175 mcg (0.175 mg) oral tablet Start: 07/26/23 9:11:00 EST, 1 tab, PO, Daily, Disp# 30 tab, Refills: 5, Brand Medically Necessary,Pharmacy: [facility] #[id number] Start Date: 07/26/23 Status: Ordered mesalamine 1.2 g oral delayed release tablet Start: 07/05/23 8:50:00 EST, 2 tab, PO, bid, Disp# 360 tab, Refills: 3, Pharmacy: [facility] #[id number] Start Date: 07/05/23 Stop Date: 06/29/24 Status: Ordered mesalamine 4 g/60 mL rectal enema Start: 09/27/23 16:44:00 EST, 60 mL, SD, qhs, Disp# 5,400 mL, Refills: 3, Note to Pharmacy: Fax to [facility] [phone] Start Date: 09/27/23 Stop Date: 09/21/24 Status: Ordered traMADol 50 mg oral tablet Start: 07/26/23 9:16:00 EST, 1 tab, PO, q8h, Disp# 45 tab, Refills: 1, PRN: as needed for pain, Pharmacy: [facility] #[id number] Start Date: 07/26/23 Status: Ordered triamcinolone 0.1% topical lotion Start: 05/25/23 22:06:00 EDT, 1 appl, topical, bid, Disp# 60 mL, Refills: 1, To invovled rash BID PRN, Pharmacy: [facility] #[id number] Start Date: 05/25/23 Status: Ordered Problem List Condition Confirmation Course Effective Dates Status H ealth Status Informant Acne rosacea Confirmed Active Allergic eczema Confirmed Active Alopecia Confirmed Active Anxiety Confirmed Active Asthma Confirmed Active Chronic headache Confirmed Active Colonic polyp Confirmed Active Diverticulitis Confirmed Active Eczema Confirmed Active Hemorrhoids, internal Confirmed Active History of COVID-19 Confirmed Active Borderline hyperlipidemia Confirmed Active Hypertension Confirmed Active Hypothyroidism Confirmed Active Lipoma of ileocecal valve Confirmed Active Headache, migraine Confirmed Active Breast cancer screening by mammogram Confirmed Active Seasonal allergies Confirmed Active Seborrheic keratoses Confirmed Active Typhlitis Confirmed Active Ulcerative colitis Confirmed Active Loss of weight Confirmed Active Procedures Procedure Date Related Diagnosis Body Site Status Colonoscopy 1, 2, 3 02/01/23 Compl eted Mammogram 4 02/01/22 Completed Mammogram 5 06/26/[address] of orbits 6 05/19/17 Completed Colonoscopy 7 01/28/17 Completed colonoscopy 8 01/28/17 Completed gallbladder removed 12/23/12 Compl eted Abdominal hysterectomy 9 Completed Cholecystectomy 10 Comple lisandro EXPLR/DECOMPRESS EYE SOCKET Completed H/O: hysterectomy 11 Comp leted [address] [place] [address] Impression: 1. The examined portion of the ileum was normal 2. Congested, erythematous, friabe (with contact bleeding) granular and hemorrhagic mucosa in the cecum. Biopsied 3. The spenic flexure, transverse colon, hepatic flexure and ascending colon are normal 4. Congested, erythematous, friable (with contact bleeding), granular and hemorrhagic mucosa in therectum, in the recto-sigmoid colon, in the sigmoid colon and in the descending colon. Biopsied. 2Pathology: Cecum, "cecal colon biopsy: Moderate to severe, chronic active typhlitis with features consistent witn inflammatory bowel. disease, specifically ulcerative colitis is seen. Dysplasia nand Carcinoma are NOT seen. The endoscopic finding of congestion, erythema, friability, hemorrhage and gr anularity of the cecal mucosa is noted. Colon, "left colon biopsy" Moderate, chronic active colitis with features consistent witn inflammatory bowel disease, specifically ulcerative colitis, is seen. The endoscopic finding of congestion, erythem, friability, hemorrhage and granularity of the rectosigmoid 3Repeat in 5 years. 4No mammographic evidence of malignancy. 1 year screening mammogram is recommended. 5No mammographic evidence of malignancy. 1 year screening is recommended. 6IMPRESSION: 1. Normal CT appearance of the extraocular muscles. 2. Moderate to marked exophthalmos, a finding that is likely related to graves 7Noted by Dr. Talita Das Normal, next in 5 yrs 8normal, next in 5 yrs. 9fibroids/menorrhagia [age] years old [age] years old. Results Radiology Reports * Exam Date Time Procedure Performing Provider Status 11/24/23 1:39 PM VL Lower Ext Venous Duplex Left Zaira Bain; Final Notes: (VL Lower Ext Venous Duplex Left) Reason For Exam: Pain, area of cellulitis, evaluated for DVT/abscess VL Lower Ext Venous Duplex Left [facility] FINAL REPORT Name: AJ JAMESON : 1970 Visit: [id number] Date: 24 Nov 2023 TYPE OF TEST: Peripheral Venous Testing REASON FOR TEST Red, painful area on left posterior medial calf INTERPRETATION/FINDINGS Venous duplex imaging performed of the LEFT lower extremity: 1. No evidence of deep or superficial vein thrombosis identified in the left common femoral, femoral, deep femoral, popliteal, gastrocnemius, posterior tibial, peroneal, great saphenous or small saphenous veins. 2. No abnormalities noted in the contralateral common femoral vein. No prior exam available for comparison. IMPRESSION/COMMENTS I have personally reviewed the data relevant to the interpretation of this study. TECHNOLOGIST: Zaira MONTES DE OCA, RD, RVT PHYSICIAN: Jyotsna Love MD Signed: 11/24/2023 05:33 PM Final Dictated by:MD Love Tanya R Dictated DT/TM:11/24/2023 5:33 Signed by:MD Love Tanya R Signed (Electronic Signature):11/24/2023 5:33 p Transcribed by:TRF Social History Social History Type Response Smoking Status Never smoked cigaret lucía Sex Patient Care team information Care Team Personnel Name: MD Das Amy L Position: Physician - Family Med Member Role: Primary Care Provider Address: Address: [address] [place] [address] Care Team Related Persons Name: NEDA TUCKER Address: home No Address Provided Name: RYAN JAMESON Address: home [address] [facility] [phone] Name: RYAN JAMESON Address: home [address] [place] [address] [phone] Name: RITA JAMESON Address: [facility] Address: home [address] [place], [place] [id number]
--- OUTSIDE RECORDS SUMMARY | 2023-11-28 05:55 | External Medical Summary | Continuity of Care Document ---
Author Name Unknown Organization [address] Address [address] [place] [id number] Care Team Providers Care Flight Operations Specialist Name Role Phone Talita Das Primary Care Physician [phone] Encounter [facility] [id number] Date(s): 11/24/23 - 11/24/[address] [address] [phone] Encounter Diagnosis Cellulitis, leg(Discharge Diagnosis) - 11/24/23 Discharge Disposition: Home or Self Care Attending Physician: DO Verde Allison B Allergies, Adverse [...] in Search 1 eczema rash Active 1polyester Assessment and Plan Extracted from: Title:Office Visit Note Author:DO Verde Allis on B Date:11/24/23 Cellulitis, leg Stop the Keflex. Will add in doxycycline for improved coverage. Does not appear to beLyme, will check Lyme titers that she notices thebeginning of October. CBC and CMP, she recently had this doneApril 18 at [facility], but will repeat. Did discuss possibly ER. No fluctuance noted, but she does have tenderness. She was worried that the redness. She does admit that the budesonide appears to be helpingthe redness and she has been on this for 2 days. Willmonitor symptoms. Follow-up in the office Monday or Monday. To the ER with any severe signs or symptoms. Will get a stat ultrasound to rule out any underlying abscess/fluid collection. She does not have any calf tenderness. Patient declined ER at this time. She has a dentist appointment today. Will start doxycycline and stat ultrasound. To the ER with any severe signs or symptoms. Warning signs extensively discussed. Blood work pending. Immunizations Given and Recorded Vaccine Date Status [...] Daily, Disp# 30 tab, Refills: 6, [facility]acy: [facility] #[id number] Start Date: 10/18/23 Status: Ordered budesonide 3 mg oral delayed release capsule Start: 11/24/23 8:39:00 EDT, 3 cap, Per GI at [facility]. Start Date: 11/24/23 Status: Ordered doxycycline hyclate 100 mg oral capsule Start: 11/24/23 8:21:00 EDT, 1 cap, PO, Daily, Disp# 10 cap, Pharmacy: [id number] Start Date: 11/24/23 Stop Date: 12/04/23 Status: Ordered FLUoxetine 40 mg oral capsule Start: 08/28/23 12:11:00 EST, 1 cap, PO, Daily, Disp# 30 cap, Refills: 6, Pharmacy: [facility] #[id number] Start Date: 08/28/23 Status: Ordered levalbuterol CFC free 45 mcg/inh inhalation aerosol Start: 07/07/23 11:31:00 EST, See Instructions, Disp# 15 g, Refills: 1, inhale 1 puff every 4 hoursif needed for wheezing, Pharmacy: [facility] #[id number] Start Date: 07/07/23 Status: Ordered levothyroxine 175 mcg (0.175 mg) oral tablet Start: 07/26/23 9:11:00 EST, 1 tab, PO, Daily, Disp# 30 tab, Refills: 5, Brand Medically Necessary,Pharmacy: [facility] #[id number] Start Date: 07/26/23 Status: Ordered mesalamine 1.2 g oral delayed release tablet Start: 07/05/23 8:50:00 EST, 2 tab, PO, bid, Disp# 360 tab, Refills: 3, Pharmacy: [facility] #[id number] Start Date: 07/05/23 Stop Date: 06/29/24 Status: Ordered mesalamine 4 g/60 mL rectal enema Start: 09/27/23 16:44:00 EST, 60 mL, NH, qhs, Disp# 5,400 mL, Refills: 3, Note to Pharmacy: Fax to [facility] [phone] Start Date: 09/27/23 Stop Date: 09/21/24 Status: Ordered traMADol 50 mg oral tablet Start: 07/26/23 9:16:00 EST, 1 tab, PO, q8h, Disp# 45 tab, Refills: 1, PRN: as needed for pain, Pharmacy: [facility] #[id number] Start Date: 07/26/23 Status: Ordered triamcinolone 0.1% topical lotion Start: 05/25/23 22:06:00 EDT, 1 appl, topical, bid, Disp# 60 mL, Refills: 1, To invovled rash BID PRN, Pharmacy: [facility] #[id number] Start Date: 05/25/23 Status: Ordered Mental Status 11/24/23 Barriers to Learning one year None evide nt Mandatory Health Literacy Documentation Yes Health Literacy Communication Barriers N ever Primary Language Bulgarian Problem List Condition Confirmation Course Effective Dates [...] Confirmed Active Loss of weight Confirmed Active Diagnosis Diagnosis Type Effective Dates Health Status Cl inical Service Informant Cellulitis, leg Discharge Diagnosis 11/24/23 Non-Specified Procedures Procedure Date Related Diagnosis Body Site Status Colonoscopy 1, 2, 3 02/01/23 Compl eted Mammogram 4 02/01/22 Completed Mammogram 5 06/26/[address] of orbits 6 05/19/17 Completed Colonoscopy 7 01/28/17 Completed colonoscopy 8 01/28/17 Completed gallbladder removed 12/23/12 Compl eted Abdominal hysterectomy 9 Completed Cholecystectomy 10 Comple lisandro EXPLR/DECOMPRESS EYE SOCKET Completed H/O: hysterectomy 11 Comp leted [address] [place] [address] Impression: 1. The examined portion of the [...] Colon, "left colon biopsy" Moderate, chronic active colitiswith features consistent witn inflammatory bowel disease, specifically ulcerative colitis, is seen.The endoscopic finding of congestion, erythem, friability, hemorrhage [...] 9fibroids/menorrhagia [age] years old [age] years old. Vital Signs Most recent to oldest [Reference Range]: 1 Patient Weight 108.1 kg (11/24/23 7:59 AM) Temperature [36.5-37.9 DegC] 36.9 DegC (11/24/23 7:59 AM) Heart Rate 87 bpm (11/24/23 7:59 AM) Respiratory Rate 17 br/min (11/24/23 7:59 AM) Blood Pressure 120/74mmHg (11/24/23 7:59 AM) Social History Social History Type Response Smoking Status Never smoked cigaret lucía Sex FCM Outpt Note * DO Verde Allison B: PERFORM Event Display: FCM Outpt Note Authored Date: [id number] Chief Complaint Concerns with left calf insect bite. Was on 11/13 , given script for antibiotic. Bite still red and inflamed. History of Present Illness Patient is a 52 year old female that presents to the office for an acute visit. She was recently seen in the office in November 13 for a possible insect bite on the LLE. She reports that she had noticeda red area on theleftlateralcalf 8 days prior to her appointment on March 15. She denied any associated symptomsat that time. She was givenKeflex 500 mg4 times dailyx 10 days. Overallsymptoms have stayed the same, but similar redness. Of notesannette [facility] and states that she feels that it is helping with the redness. She denies any fevers, chills, joint pain. She denies any difficulty walking. She denies any drainage. She does have issues with herleftknee and had been on doxycycline in August for a fall. Review of Systems Constitutional: No fever, No chills, No fatigue._ Respiratory: No shortness of breath, No cough, No wheezing. _ Cardiovascular: no lightheadedness/presyncope, No chest pain, No palpitations._ Gastrointestinal: No nausea, No vomiting, No diarrhea, No constipation, No heartburn, No abdominal pain._ Musculoskeletal: No back pain, No neck pain, No joint pain, No muscle pain, No decreased range ofmotion, No trauma._ Skin: Rash Neurologic:No abnormal balance, No numbness, No tingling, No headache._ Physical Exam Vitals & Measurements T:36.9C HR:87(Monitored) RR:17 BP:120/74 SpO2:98% WT:108.1kg WT:108.100kg(Dosing) PHQ2 Data(Data Documented on:11/24/2023 07:59) Emotional health assessment NEGATIVE General: _Alert and oriented, No acute distress HEENT: _ Normocephalic, TM clear, Nl gross hearing, moist oral mucosa _ Cardiovascular: _Normal rate, Regular rhythm, No murmur, No gallop. Respiratory: _Lungs are clear to auscultation, Respirations are non-labored, Breath sounds are equal Gastrointestinal: _Soft, Non-tender, Non-distended, Normal bowel sounds. Musculoskeletal: _Normal range of motion,normal strength. Neurologic:Normal sensory, Normal motor function, CN II-XII grossly intact. Integumentary:Reviewed measurements from previous. Photo in chart. Appears to beabout the sameerythema with dusky center at 3 x 3 cm with a dusky center and about 5/6 cm x 6-1/2 cm. Thereismarkings around therash that the patient states that she placed approximately3 to 4 days ago and the rash has not traveled outside of the area. Psych: Mood-affect congruence. Reports no SI/HI. Speech is of normal pace and content Assessment/Plan Cellulitis, leg Stop the Keflex. Will add in doxycycline for improved coverage. Does not appear to beLyme, will check Lyme titers that she notices thebeginning of October. CBC and CMP, she recently had this doneApril 18 at [facility], but will repeat. Did discuss possibly ER. No fluctuance noted, but she does have tenderness. She was worried that the redness. She does admit that the budesonide appears to be helpingthe redness and she has been on this for 2 days. Willmonitor symptoms. Follow-up in the office Monday or Monday. To the ER with any severe signs or symptoms. Will get a stat ultrasound to rule out any underlying abscess/fluid collection. She does not have any calf tenderness. Patient declined ER at this time. She has a dentist appointment today. Will start doxycycline and stat ultrasound. To the ER with any severe signs or symptoms. Warning signs extensively discussed. Blood work pending. Problem List/Past Medical History Ongoing Acne rosacea Allergic eczema Alopecia Anxiety Asthma Borderline hyperlipidemia Breast cancer screening by mammogram Chronic headache Colonic polyp Diverticulitis Eczema Headache, migraine Hemorrhoids, internal History of COVID-19 Hypertension Hypothyroidism Lipoma of ileocecal valve Loss of weight Seasonal allergies Seborrheic keratoses Typhlitis Ulcerative colitis Procedure/Surgical History Colonoscopy| Service Date: 02/01/2023Mammogram| Service Date: 02/01/2022Mammogram| ServiceDate: 06/26/2019CT of orbits| Service Date: 05/19/2017Colonoscopy| Service Date: 01/28/2017colonoscopy| Service Date: 01/28/2017gallbladder removed| Service Date: 12/23/2012H/O: hystere ctomyCholecystectomyAbdominal hysterectomyEXPLR/DECOMPRESS EYE SOCKET Medications amLODIPine(amLODIPine 2.5 mg oral tablet), 2.5 mg= 1 tab, PO, Daily, 6 refills budesonide(budesonide 3 mg oral delayed release capsule), 9 mg= 3 cap doxycycline(doxycycline hyclate 100 mg oral capsule), 100 mg= 1 cap, PO, Daily FLUoxetine(FLUoxetine 40 mg oral capsule), 40 mg= 1 cap, PO, Daily, 6 refills levalbuterol(levalbuterol CFC free 45 mcg/inh inhalation aerosol), See Instructions, 1 refills levothyroxine(levothyroxine 175 mcg (0.175 mg) oral tablet), 175 mcg= 1 tab, PO, Daily, 5 refills mesalamine(mesalamine 4 g/60 mL rectal enema), 4 g= 60 mL, NH, qhs, 3 refills mesalamine(mesalamine 1.2 g oral delayed release tablet), 2.4 g= 2 tab, PO, bid, 3 refills traMADol(traMADol 50 mg oral tablet), 50 mg= 1 tab, PO, q8h, PRN, 1 refills triamcinolone topical(triamcinolone 0.1% topical lotion), 1 appl, topical, bid, 1 refills Allergies Dogs (Mild)Itching, hives, upper resp problems Allergy Not found in Searcheczema, rash Catsupper resp symptoms Dustupper resp symptoms GrassNasal congestion Latexrash Moldupper resp symptoms Petroleum Jellyrash and then eczema Treesupper resp symptoms penicillinsRash sulfa drugsRash woolrash and eczema Social History Smoking Status Never smoked cigarettes Alcohol Frequency:1-2 times per year Exercise Duration (average number of minutes):45 Times per week:1-2 times/week Exercise type:Walking Tobacco Use:Never smoker Family History Cancer of colon: Mother. Heart attack: MGF. Hypertension: Mother and MGM. Melanoma in situ of skin: Father. Stroke: MGM. Health Status Family Member(s) Immunizations Vaccine Date Status influenza virus vaccine, inactivated 06/13/2022 Given SARS-CoV-2 (COVID-19) mRNA BNT-162b2 vax 05/26/2021 Recorded Comments : 2021-08-12: Historical information-source unspecified SARS-CoV-2 (COVID-19) mRNA BNT-162b2 vax 05/26/2021 Recorded Comments : 2021-08-12: Historical information-source unspecified SARS-CoV-2 (COVID-19) mRNA BNT-162b2 vax 10/13/2020 Recorded Comments : 2021-08-12: Historical information-source unspecified SARS-CoV-2 (COVID-19) mRNA BNT-162b2 vax 10/13/2020 Recorded Comments : 2021-08-12: Historical information-source unspecified SARS-CoV-2 (COVID-19) mRNA BNT-162b2 vax 09/22/2020 Recorded Comments : 2021-08-12: Historical information-source unspecified SARS-CoV-2 (COVID-19) mRNA BNT-162b2 vax 09/22/2020 Recorded Comments : 2021-08-12: Historical information-source unspecified influenza virus vaccine, inactivated 04/23/2020 Given influenza virus vaccine, inactivated 06/14/2019 Given influenza virus vaccine, inactivated 06/12/2017 Given tetanus toxoids-diphtheria, Td (Adult) 01/13/2016 Recorded Comments : 2021-08-12: Historical information-source unspecified tetanus toxoids-diphtheria, Td (Adult) 01/13/2016 Recorded Comments : 2021-08-12: Historical information-source unspecified Recommendations Health Maintenance Pending(in the next year) OverDue Adult Influenza Vaccine due01/27/23and every 1year Due Adult COVID-19 Vaccination due11/24/23Unknown Frequency Adult Social Determinants of Health Screening due11/24/23Unknown Frequency Hepatitis C Screening due11/24/23One-time only Pneumococcal Vaccine Adults and Adolescents with Chronic Illness due11/24/23One-time only Shingles Vaccine due11/24/23One-time only Due In Future Breast Cancer Screening not due until02/02/24and every 731day Satisfied(in the past 1 year) Satisfied Body Mass Index on09/14/23.Satisfied by HANDY Melton Courtney D Electronic Signature on File Electronically Reviewed/Signed by: Laura Verde DO Author Signature Dt/Tm:11/24/2023 08:41 AM Department of Family Medicine [facility] Patient Care team information Care Team Personnel Name: MD Das Amy L Position: Physician - Family Med Member Role: Primary Care Provider Address: Address: [address] [place] [id number] [place] Care Team Related Persons Name: NEDA TUCKER Address: home No Address Provided Name: RYAN JAMESON Address: home [address] [place] [address], [phone] Name: RYAN JAMESON Address: home [address] [facility] [place] [phone] Name: RITA JAMESON Address: [facility] Address: home [address] [facility] [place] [id number]
--- OUTSIDE RECORDS SUMMARY | 2023-11-28 05:55 | External Medical Summary | Continuity of Care Document ---
Author Name Unknown Organization [facility] [id number] [address] Macedo Address [address] [place] [phone] Care Team Providers Care Alining Inspector Name Role Phone Pippa Talita Garnica Primary Care Physician [phone] [id number] Date(s): 11/14/23 - 11/14/23 [facility] [address], [address] [place] [address] [phone] Encounter Diagnosis Cellulitis of left leg(Discharge Diagnosis) - 11/14/23 Discharge Disposition: Home or Self Care Attending Physician: MATTHEW Busch Jessica A Allergies, Adverse Reactions, Alerts Substance Reaction Severity Status penicillins Rash Active sulfa drugs Rash Active Dogs Itching hives, upper resp problems Mild Active Petroleum Jelly rash and then eczema Acti ve Cats upper resp symptoms Active Dust upper resp symptoms Active Grass Nasal congestion Active Mold upper resp symptoms Active Trees upper resp symptoms Active Latex rash Active wool rash and eczema Active Allergy Not found in Search 1 eczema rash Active 1polyester Assessment and Plan Extracted from: Title:cellulitis Author:MATTHEW Busch Jessica A Date:11/14/23 1.Cellulitis of left leg Cellulitis of theleft lower leg is acute and uncontrolled. Goalis resolution of symptoms. Patient is allergic to PCN and sulfa drugs. Given cephalexin 500 mg, 1 cap p.o. every 6 hours x 10 dayswith food. Recommend applying warm, moist compresses to the areafor 5 to 10 minutes 3 times daily x 2 to 3 days. Recommend close follow-up if symptoms or not improving, worsen or change. Advised to seek urgent care at the ER if develops any severe pain, red streaking from site, feveror other alarming symptoms. She agreed. Time spent on pre-visit plannin minutes Total time spent communicating with the patient: 17 minutes Time spent documenting pertinent clinical information into the EMR:8 minutes Total time:25 minutes Immunizations Given and Recorded Vaccine Date Status [...] Daily, Disp# 30 tab, Refills: 6, Pharmacy: [email or web address] #[id number] Start Date: 10/18/23 Status: Ordered cephalexin 500 mg oral capsule Start: 11/14/23 16:52:00 EDT, 1 cap, PO, q6h, Disp# 40 cap, X 10 day, Stop: 11/24/23 16:52:00 EDT, Pharmacy: [email or web address] #[id number] Start Date: 11/14/23 Stop Date: 11/24/23 Status: Ordered FLUoxetine 40 mg oral capsule Start: 08/28/23 12:11:00 EST, 1 cap, PO, Daily, Disp# 30 cap, Refills: 6, Pharmacy: [email or web address] #[id number] Start Date: 08/28/23 Status: Ordered levalbuterol CFC free 45 mcg/inh inhalation aerosol Start: 07/07/23 11:31:00 EST, See Instructions, Disp# 15 g, Refills: 1, inhale 1 puff every 4 hoursif needed for wheezing, Pharmacy: [facility] #[id number] Start Date: 07/07/23 Status: Ordered levothyroxine 175 mcg (0.175 mg) oral tablet Start: 07/26/23 9:11:00 EST, 1 tab, PO, Daily, Disp# 30 tab, Refills: 5, Brand Medically Necessary,Pharmacy: [email or web address] #[id number] Start Date: 07/26/23 Status: Ordered mesalamine 1.2 g oral delayed release tablet Start: 07/05/23 8:50:00 EST, 2 tab, PO, bid, Disp# 360 tab, Refills: 3, Pharmacy: [email or web address] #[id number] Start Date: 07/05/23 Stop Date: 06/29/24 Status: Ordered mesalamine 4 g/60 mL rectal enema Start: 09/27/23 16:44:00 EST, 60 mL, ME, qhs, Disp# 5,400 mL, Refills: 3, Note to Pharmacy: Fax to [facility] [phone] Start Date: 09/27/23 Stop Date: 09/21/24 Status: Ordered traMADol 50 mg oral tablet Start: 07/26/23 9:16:00 EST, 1 tab, PO, q8h, Disp# 45 tab, Refills: 1, PRN: as needed for pain, Pharmacy: [email or web address] #[id number] Start Date: 07/26/23 Status: Ordered triamcinolone 0.1% topical lotion Start: 05/25/23 22:06:00 EDT, 1 appl, topical, bid, Disp# 60 mL, Refills: 1, To invovled rash BID PRN, Pharmacy: [facility] #[id number] Start Date: 05/25/23 Status: Ordered Mental Status 11/14/23 Barriers to Learning one year None evide nt Mandatory Health Literacy Documentation Yes Health Literacy Communication Barriers N ever Primary Language Albanian Problem List Condition Confirmation Course Effective Dates [...] Diagnosis Diagnosis Type Effective Dates Health Status Clinical Service Informant Cellulitis of left leg Discharge Diagnosis 11/14/23 Procedures Procedure Date Related Diagnosis Body Site Status Colonoscopy 1, 2, 3 02/01/23 Compl eted Mammogram 4 02/01/22 Completed Mammogram 5 06/26/[address] of orbits 6 05/19/17 Completed Colonoscopy 7 01/28/17 Completed colonoscopy 8 01/28/17 Completed gallbladder removed 12/23/12 Compl eted Abdominal hysterectomy 9 Completed Cholecystectomy 10 Comple lisandro EXPLR/DECOMPRESS EYE SOCKET Completed H/O: hysterectomy 11 Comp leted [address] [place] [address] Impression: 1. The examined portion of the [...] [Reference Range]: 1 Patient Weight 108.1 kg (11/14/23 4:35 PM) Temperature [36.5-37.9 DegC] 36.9 DegC (11/14/23 4:35 PM) Heart Rate 86 bpm (11/14/23 4:35 PM) Respiratory Rate 20 br/min (11/14/23 4:35 PM) Blood Pressure 122/82mmHg (11/14/23 4:35 PM) Cuff Pulse Pressure 40 mmHg (11/14/23 4:35 PM) BP Location # 1 Left Arm, Manual (11/14/23 4:35 PM) Social History Social History Type Response Smoking Status Never smoked cigaret lucía Sex [facility] Note * MATTHEW Busch, Cande Brantley: PERFORM Event Display: [facility] Note Authored Date: Chief Complaint Possible insect bite to LLE History of Present Illness Stephanienoticed a red, raised area on the lateral aspect of her left calf x 8 days agowhen getting in the shower. Since thenarea has seemed to fluctuatein sizeand has visibly appeared swollen, redand at times warm to the touch. Area is sore and sensitive when touched as well. In the last day ortwo it has been fairly itchy. She has been taking [place] applying cool compresses that has helped with itching. Notes that she follows with orthopedicsand had seen orthopedic providerthe day after she noticed skin lesionand the provider told her it looks like a possiblelocal reaction to an insect bite. Does not recall getting bitten. No known injury. Does not spend time outdoors. She does have cats, but they are indoorsand noknown tick bites. Non-smoker. No personal history of diabetesor MRSA. No fever, chills, nausea, vomiting,red streaking from site, drainage from site, open wounds, myalgias, arthralgias, headachesor flulike symptoms. Review of Systems ROS:All other systems negative, except HPI. Physical Exam Vitals & Measurements T:36.9C HR:86(Monitored) RR:20 BP:122/82 SpO2:98% WT:108.100kg(Dosing) WT:108.1kg PHQ2 Data(Data Documented on:11/14/2023 16:35) Emotional health assessment NEGATIVE General: Alert and oriented, No acute distress.Pleasant. Eye: Pupils are equal, round and reactive to light, Extraocular movements are intact, Normal conjunctiva. HENT: Normocephalic. Respiratory: Lungs are clear to auscultation, Respirations are non-labored, Breath sounds are equal, Symmetrical chest wall expansion. Cardiovascular: Normal rate, Regular rhythm, No murmur, No gallop, Good pulses equal in all extremities, Normal peripheral perfusion. No LE edema. Musculoskeletal Normal gait. FROM and 5/5 strength at BLE and BUE. Integumentary: Warm, Bentley, No pallor. Left posterior lateral calf with3 x 3 cm circular area ofdull erythemawith central dusky discoloration. Area is warm, tender and indurated. Centralarea of erythema is surrounded by5 x 6 cm area of soft tissue swelling that is also tender and mildly indurated. No pustular lesion or discharge from site. Neurologic: Alert, Oriented, Cranial Nerves II-XII are grossly intact. Cognition and Speech: Oriented, Speech clear and coherent, Functional cognition intact. Psychiatric: Cooperative, Appropriate mood & affect, Normal judgment, Nonsuicidal. Assessment/Plan 1.Cellulitis of left leg Cellulitis of theleft lower leg is acute and uncontrolled. Goalis resolution of symptoms. Patient is allergic to PCN and sulfa drugs. Given cephalexin 500 mg, 1 cap p.o. every 6 hours x 10 dayswith food. Recommend applying warm, moist compresses to the areafor 5 to 10 minutes 3 times daily x 2 to 3 days. Recommend close follow-up if symptoms or not improving, worsen or change.Advised to seek urgent care at the ER if develops any severe pain, red streaking from site, feveror other alarming symptoms. She agreed. Time spent on pre-visit plannin minutes Total time spent communicating with the patient: 17 minutes Time spent documenting pertinent clinical information into the EMR:8 minutes Total time:25 minutes Problem List/Past Medical History Ongoing Acne rosacea [...] mg= 1 tab, PO, Daily, 6 refills cephalexin(cephalexin 500 mg oral capsule), 500 mg= 1 cap, PO, q6h FLUoxetine(FLUoxetine 40 mg oral capsule), 40 mg= 1 cap, PO, Daily, 6 refills levalbuterol(levalbuterol CFC free 45 mcg/inh inhalation aerosol), See Instructions, 1 refills levothyroxine(levothyroxine 175 mcg (0.175 mg) oral tablet), 175 mcg= 1 tab, PO, Daily, 5 refills mesalamine(mesalamine 4 g/60 mL rectal enema), 4 g= 60 mL, ME, qhs, 3 refills mesalamine(mesalamine 1.2 g oral [...] due01/27/23and every 1year Due Adult COVID-19 Vaccination due11/14/23Unknown Frequency Adult Social Determinants of Health Screening due11/14/23Unknown Frequency Hepatitis C Screening due11/14/23One-time only Pneumococcal Vaccine Adults and Adolescents with Chronic Illness due11/14/23One-time only Shingles Vaccine due11/14/23One-time only Due In Future Breast Cancer Screening not due until02/02/24and every 731day Satisfied(in the past 1 year) Satisfied Body Mass Index on09/14/23.Satisfied by HANDY Melton Courtney D Patient Care team information Care Team Personnel Name: MD Pippa, Talita Garnica Position: Physician - Family Med Member Role: Primary Care Provider Address: Address: [address] [place] [address] Care Team Related Persons Name: NEDA TUCKER Address: home No Address Provided Name: RYAN JAMESON Address: home [address] [facility] [phone] Name: RYAN JAMESON Address: home [address] [place], [place] [id number] Name: RITA JAMESON Address: [facility] Address: home [address] [place], [place] [id number]
[2023-11-28 06:01] LABS: Basophils # (auto) 0.03 K/uL (0.00-0.20); Basophils % (auto) 0.2 %; Eosinophils # (auto) 0.14 K/uL (0.00-0.50); Eosinophils % (auto) 1.1 %; Hematocrit (blood only) 27.6 % (37.0-47.0); Hemoglobin 8.4 g/dl (12.0-16.0); Immature Granulocytes # (auto) 0.11 K/uL (0.01-0.20); Immature Granulocytes % (auto) 0.9 %; Lymphocytes # (auto) 2.22 K/uL (1.20-3.40); Mean Corpuscular Hemoglobin 25.7 pg (25.0-34.0); Mean Corpuscular Hgb Conc 30.4 g/dL (32.0-36.0); Mean Corpuscular Volume 84.4 fL (80.0-100.0); Mean Platelet Volume 8.7 fL (9.4-12.4); Monocytes # (auto) 0.72 K/uL (0.11-0.59); Monocytes % (auto) 5.8 %; Neutrophils # (auto) 9.14 K/uL (1.40-6.50); Platelet Count 559 K/uL (130-400); RDW Coefficient of Variation 15.8 % (11.5-14.5); RDW Standard Deviation 48.7 fL (36.4-46.3); Red Blood Count 3.27 M/uL (4.20-5.40); White Blood Count 12.36 K/ul (4.8-10.8)
[2023-11-28 06:05] LABS: BUN Creatinine Ratio 14.3 (10-20); Calcium 8.2 mg/dl (8.6-10.3); Creatinine Clr Calc Pharmacy 74.1 ml/min; Est GFR (African American) 64.5 ml/min; Est GFR (Non-African American) 55.6 ml/min; Magnesium 1.4 mg/dl (1.7-2.4); Phosphorus 3.7 mg/dl (2.5-4.9); Potassium 3.3 mmol/L (3.5-5.1)
--- NOTE | 2023-11-28 06:33 | Magnetic Resonance Report ---
Exam(s): MRI EXTREMITY Without Contrast EXAM: MR Left Lower Extremity Without Intravenous Contrast CLINICAL HISTORY: Reason for exam: persistent infection. TECHNIQUE: Multiplanar magnetic resonance images of the left lower extremity without intravenous contrast. COMPARISON: No relevant prior studies available. FINDINGS: Bones/joints: Extensive areas of abnormal bone marrow within the tibia. This does not have an appearance of osteomyelitis. This is nonspecific but may represent areas of increased cellular bone marrow may be seen in anemia. Soft tissues: There is subcutaneous edema, this is most pronounced along the lateral aspect of the calf. No focal abscess is evident. There is no abnormal edema within the muscles.. IMPRESSION: Subcutaneous edema. No focal abscess. No myositis. Electronically signed by: Edwin Rivera MD 11/28/23 06:32 AM
--- NOTE | 2023-11-28 06:33 | Magnetic Resonance Report ---
Exam(s): MRI LEFT KNEE Without Contrast EXAM: MR Left Lower Extremity Without Intravenous Contrast, Knee CLINICAL HISTORY: Reason for exam: infection, edema. TECHNIQUE: Multiplanar magnetic resonance images of the left knee without intravenous contrast. COMPARISON: No relevant prior studies available. FINDINGS: The anterior and posterior cruciate ligaments are intact. The medial collateral ligament and components of the lateral collateral ligament complex are intact. Regional tendons are normal in appearance. There is advanced degenerative thinning of the articular cartilage in the medial knee compartment with marginal spur formation. The articular cartilage in the lateral knee compartment is fairly well maintained. There appears to be diffuse degeneration of the posterior horn of the medial meniscus and the meniscus is displaced peripherally. There is no defined or displaced tear. The lateral meniscus is intact. There is extensive abnormal signal within the bone marrow, particularly in the diametaphysis of the distal femur but also patchy areas in the proximal tibia. These areas are nonspecific but may represent increased cellular bone marrow is but may be seen in anemia. These areas do not have an appearance of osteomyelitis. There is extensive subcutaneous edema along the anterior and anterolateral aspects of the knee. No focal fluid collection. Small joint effusion. IMPRESSION: Subcutaneous edema along the anterior and anterolateral aspects of the knee without focal fluid collection. Degenerative changes in the medial knee compartment. Small joint effusion. Abnormal bone marrow signal as above. Electronically signed by: Edwin Rivera MD 11/28/23 06:32 AM
[2023-11-28] MEDS: SYNTHROID 175 MCG PO SCH (08:15)
--- NOTE | 2023-11-28 08:21 | Hospitalist Progress Note ---
<Statement entered by Michelle Roberts MD - 11/28/23 17:34> 52 y/o who has had problems with L knee swelling and erythema since 08/2023. Started after a fall, seen in sports med, thought prepatellar bursitis and mild cellulitis was already on po cefuroxime for sinusitis at the time and po doxy was addded then extended on follow up . Improved in interim 11/06 developed L calf lesion initially topical abx, keflex 11/13 and looked like bug bite at that time, 11/23 oral doxy then admitted 11/26. -LLE SSTI with failure of outpatient antibiotics, potentially could be resistant organism (gram negative or MRSA), agree with current IV abx coverage - assess response over 48-72h -agree with ortho consult given persistent/recurrent L knee erythema and swelling - effusion small on imaging however and arthrocentesis not recommended at this time -consider tick bite / tickborne infection, had a lot of doxycycline already, await tickborne labs though no documented exposure -consider non-infectious etiologies - for example E. nodosum with active UC or an inflammatory or crystalline arthritis. EN not usually single lesion. If not improving on broad antibiotic would try course of steroids. Agree with below. Date of Service November 28, 2023 Assessment & Plan (1) Cellulitis of left lower extremity: Plan: Failure of outpatient Keflex, then transitioned to Doxy. Of note, reported she had fallen/trauma and also rx Cefuroxime and Doxy last month for possible infection in her knee MRI LE IMPRESSION: * Subcutaneous edema. No focal abscess. No myositis. MRI LEFT KNEE IMPRESSION: * Subcutaneous edema along the anterior and anterolateral aspects of the knee without focal fluid collection. * Degenerative changes in the medial knee compartment. * Small joint effusion. * Abnormal bone marrow signal as above. Orthopedics consulted for consideration for aspiration of knee joint for additional information, would send for crystals/GS/cx. Prior seen by Dr Adriana Salazar as outpatient. Dr Weiner/Leonardo Hernandez to see today per discussion w/ LIONEL given prior message to switch to [facility] but has been seen by Dr Salazar from [facility] Remains on Cefepime, Vancomycin given immunocompromised state. If suspecting tick related, would switch cefepime to ceftriaxone, can consider adding IV doxy in meantime (did report took about 4 doses thus far -- can add after eval by orthopedics) Lyme testing negative ordered by ED Added anaplasmosis, babesiosis and ehrlichiosis testing WBC 13.2k--> 12.3k, afebrile Blood cultures pending Check iron studies given anemia, B12/folate given platelet elevation -->Patient reports being told she was anemic on outpatient labs in October. Suspect her platelet elevation 2nd to anemia. Also notable bone marrow edema abn on imaging c/w anemia ESR/CRP added by orthopedics (to be seen by Dr Weiner this afternoon), however notable w/ her anemia can also contribute to elevation No UA from admission, ?ordered but is on abx -- urine cx pending (no bacteria but WBC/leuk est, WBC>epi) - monitor to bring in her mesalamine, remains on budesonide 9mg daily -Not on any PPI at baseline, ?adding Monitor labs/exam on repeat (2) Left knee pain: Plan: suspected 2nd to infection as above treatment as outlined (3) Failure of outpatient treatment: Plan: failure of outpatient abx. ?underlying gout/septic joint. ortho consulted as above (4) Immunocompromised: Plan: on mesalamine for her UC, recently went to [facility] for treatment (5) Ulcerative colitis: Plan: recently switched to [facility] as above - has another appointment in a week or so to pursue more aggressive therapy, possibly Entyvio (6) Anemia: Plan: Iron studies/B12/folate added to labs given thrombocytosis and patient reports being told anemic in the past. No increased abdominal pain Checking TSH as well given anemia ( brought in her home Synthroid)--> TSH wnl 0.449 B12 borderline 246, PO supplementation ordered Folate borderline 5.71, PO supplementation to be ordered Iron studies w/ iron LOW 17, transferring % sat LOW at 7, ferritin 32 --> Likely to order Venofer but will await ortho eval/blood cultures NGTD x 24 hours first Monitor CBC on repeat (7) Anxiety: Plan: and depression - continue home fluoxetine daily (8) Allergic rhinitis: Plan: continue zyrtec, flonase as needed (9) Hypertension: Plan: no on any BP medications (10) Hypothyroidism: Plan: TSH checked given anemia, wnl Remains on home replacement (brought in by ) (11) Iron deficiency anemia: Plan: as above, recently told iron deficient, likely from her underlying UC Iron studies added to AM labs, consideration for Venofer IV in AM if blood cultures remain NGTD Electrolyte abnormalities: Hypokalemia/hypomagnesemia Declined IV mag initially this morning reporting wouldn't know what it would do to her and prior issues w/ PO supplementation and diarrhea Prior report cdiff NEGATIVE at [facility], monitor while on abx for increased diarrhea After discussion, agreed to IV magnesium, ordered repeat dosing. Consider SLOW mag if needed K 3.3, PO replacement ordered as well Monitor BMP, Mag in AM Plan continued inpatient stay appreciate orthopedics consult/recommendations Admission and Anticipated Discharge Date Admission Date: November 27, 2023 Subjective Evaluated this morning, at bedside. Patient reports feeling a little better since admission, ongoing pain to her knee. Had prior injury and was rx cefuroxime and doxycycline for possible infection to her knee following trauma/a fall. Denies hx gout. Per patient/, she fainted/passed out and landed on her knee. Redness within markings, on IV abx. Tick testing pending. Discussed continued abx and consultation w/ orthopedics for possible aspiration for evaluation. She is on mesalamine for her UC, reports switching to [facility] as unable to see provider around here. Has not had any mesalamine today, to go get from home. He did bring in her synthroid this morning. No prior adverse reaction to IV magnesium but diarrhea with oral. Discussed IV replacement and oral if needed. Has baseline diarrhea, not worsened but did report had stool testing at [place] for cdiff on the 18th of this month and to monitor/alert of any worsening. Physical Exam Physical Exam: General: 52yo female sitting up in bed, at bedside, NAD HEENT: head atraumatic, normocephalic, thick neck, trachea midline Resp; Even/unlabored, no w/c/r, on room air CV: RRR, no significant m/r/g, no pitting edema GI: +BS, soft/ slight distension, no overt tenderness/guarding : no mansfield MSK/Neuro/skin: LLE -- knee w/ bruising anteriorly/laterally, left lateral calf with erythema, within markings, +tenderness, +warmth pulses palpable Psych: AOx3, cooperative Results & Data Results & Data Vital Signs (Past 12 Hours) Vital Signs Temp Pulse Resp BP Pulse Ox O2 Del Method 11/28/23 07:36 36.9 C 86 16 129/83 96 Room Air 11/28/23 02:50 37.1 C 86 18 136/84 98 Room Air 11/28/23 00:00 86 19 169/110 H 97 11/27/23 22:00 88 17 150/99 H 97 Room Air Laboratory Results 11/28/23 11/27/23 Range/Units 05:16 21:09 WBC 12.36 H 13.26 H (4.8-10.8) K/ul RBC 3.27 L 3.61 L (4.20-5.40) M/uL Hgb 8.4 L 9.4 L (12.0-16.0) g/dl Hct 27.6 L 30.7 L (37.0-47.0) % MCV 84.4 85.0 (80.0-100.0) fL MCH 25.7 26.0 (25.0-34.0) pg MCHC 30.4 L 30.6 L (32.0-36.0) g/dL RDW Std Deviation 48.7 H 49.1 H (36.4-46.3) fL RDW Coeff of Alphonse 15.8 H 15.8 H (11.5-14.5) % Plt Count 559 H 602 H (130-400) K/uL MPV 8.7 L 8.7 L (9.4-12.4) fL Immature Gran % (Auto) 0.9 0.6 % Neut % (Auto) 74.0 76.0 % Lymph % (Auto) 18.0 16.4 % [place] % (Auto) 5.8 5.8 % Eos % (Auto) 1.1 1.0 % Baso % (Auto) 0.2 0.2 % Neut # (Auto) 9.14 H 10.07 H (1.40-6.50) K/uL Lymph # (Auto) 2.22 2.18 (1.20-3.40) K/uL [place] # (Auto) 0.72 H 0.77 H (0.11-0.59) K/uL Eos # (Auto) 0.14 0.13 (0.00-0.50) K/uL Baso # (Auto) 0.03 0.03 (0.00-0.20) K/uL Immature Gran # (Auto) 0.11 0.08 (0.01-0.20) K/uL Sodium 138 137 (136-145) mmol/L Potassium 3.3 L 3.4 L (3.5-5.1) mmol/L Chloride 109 H 104 (98-107) mmol/L Carbon Dioxide 23 27 (21-32) mmol/L Anion Gap 6 6 (3-11) BUN 16 16 (6-23) mg/dl Creatinine 1.12 1.18 (0.6-1.2) mg/dl Est Cr Clr Drug Dosing 74.1 70.2 ml/min Est GFR ( Amer) 64.5 60.6 ml/min Est GFR (Non-Af Amer) 55.6 52.2 ml/min BUN/Creatinine Ratio 14.3 13.6 (10-20) Glucose 100 H 109 H (70-99(Fasting)) mg/dl Lactate 1.4 (0.4-2.0) mmol/L Calcium 8.2 L 9.0 (8.6-10.3) mg/dl Phosphorus 3.7 (2.5-4.9) mg/dl Magnesium 1.4 L 1.6 L (1.7-2.4) mg/dl Total Bilirubin 0.2 (0.2-1.0) mg/dl AST 9 L (13-39) U/L ALT 8 (7-52) U/L Alkaline Phosphatase 73 (34-104) U/L Total Protein 7.8 (6.0-8.3) gm/dl Albumin 3.0 L 3.4 (3.4-5.0) gm/dl Globulin 4.4 H (2.5-4.0) gm/dl Albumin/Globulin Ratio 0.8 L (0.9-2) Anaplasma Smear See Comment A. phagocytophilum DNA Pending Babesia Smear See Comment Babesia microti DNA PCR Pending Lyme Disease Screen Negative (Negative) E. chaffeensis IgG Ab Pending E. chaffeensis IgM Ab Pending E. chaffeensis Interp Pending E. chaffeensis Comment Pending Diagnostic Findings Knee MRI 11/28/23 00:31 Exam(s): MRI LEFT KNEE Without Contrast EXAM: MR Left Lower Extremity Without Intravenous Contrast, Knee CLINICAL HISTORY: Reason for exam: infection, edema. TECHNIQUE: Multiplanar magnetic resonance images of the left knee without intravenous contrast. COMPARISON: No relevant prior studies available. FINDINGS: The anterior and posterior cruciate ligaments are intact. The medial collateral ligament and components of the lateral collateral ligament complex are intact. Regional tendons are normal in appearance. There is advanced degenerative thinning of the articular cartilage in the medial knee compartment with marginal spur formation. The articular cartilage in the lateral knee compartment is fairly well maintained. There appears to be diffuse degeneration of the posterior horn of the medial meniscus and the meniscus is displaced peripherally. There is no defined or displaced tear. The lateral meniscus is intact. There is extensive abnormal signal within the bone marrow, particularly in the diametaphysis of the distal femur but also patchy areas in the proximal tibia. These areas are nonspecific but may represent increased cellular bone marrow is but may be seen in anemia. These areas do not have an appearance of osteomyelitis. There is extensive subcutaneous edema along the anterior and anterolateral aspects of the knee. No focal fluid collection. Small joint effusion. IMPRESSION: Subcutaneous edema along the anterior and anterolateral aspects of the knee without focal fluid collection. Degenerative changes in the medial knee compartment. Small joint effusion. Abnormal bone marrow signal as above. Electronically signed by: Edwin Rivera MD 11/28/23 06:32 AM Lower Extremity MRI 11/28/23 00:31 Exam(s): MRI EXTREMITY Without Contrast EXAM: MR Left Lower Extremity Without Intravenous Contrast CLINICAL HISTORY: Reason for exam: persistent infection. TECHNIQUE: Multiplanar magnetic resonance images of the left lower extremity without intravenous contrast. COMPARISON: No relevant prior studies available. FINDINGS: Bones/joints: Extensive areas of abnormal bone marrow within the tibia. This does not have an appearance of osteomyelitis. This is nonspecific but may represent areas of increased cellular bone marrow may be seen in anemia. Soft tissues: There is subcutaneous edema, this is most pronounced along the lateral aspect of the calf. No focal abscess is evident. There is no abnormal edema within the muscles.. IMPRESSION: Subcutaneous edema. No focal abscess. No myositis. Electronically signed by: Edwin Rivera MD 11/28/23 06:32 AM PG Care Time/CCT Total # of Minutes Spent Total Time Spent with Patient: Total time spent is greater than 50% in coordination of care (as documented) at patient's floor/unit and/or counseling patient: Coding Level of Care Code 74834 SUB INP/OBS CARE 50MIN Diagnoses Cellulitis of left lower extremity L03.116 Left knee pain M25.562 Failure of outpatient treatment Z78.9 Immunocompromised D84.9 Ulcerative colitis K51.90 Anemia D64.9 Anemia type: unspecified type Anxiety F41.9 Allergic rhinitis J30.9 Hypertension I10 Hypothyroidism E03.9 Iron deficiency anemia D50.9 (6) Anemia Anemia type: unspecified type Qualified Code(s): D64.9 - Anemia, unspecified
[2023-11-28] MEDS: MAGNESIUM SULFATE / D5W 1 GM/100 ML BAG IV SCH ×2 (08:49→10:28)
[2023-11-28] MEDS: LEVOTHYROXINE SODIUM 175 MCG TABLET PO SCH (08:50)
[2023-11-28] MEDS: BUDESONIDE EC 3 MG CAP PO SCH (08:50)
[2023-11-28] MEDS: CETIRIZINE HCL 10 MG TABLET PO SCH (08:51)
[2023-11-28] MEDS: FLUoxetine HCL 20 MG CAP PO SCH (08:51)
[2023-11-28] MEDS: amLODIPine BESYLATE 5 MG TAB PO SCH (08:51)
[2023-11-28] MEDS: POTASSIUM CHLORIDE CRTAB 20 MEQ TABCR PO STA (08:55)
--- NOTE | 2023-11-28 09:09 | Pharmacy Report ---
Pharmacy PK ABX Note - Date of Service November 28, 2023 - Assessment and Plan Assessment 52 year old F receiving cefepime/vancomycin for treatment of lower left extremity cellulitis. Pertinent microbiologic data includes: blood cultures pending. Considered immunocompromised by hospitalist team due to history of ulcerative collitis on oral budesonide and mesalamine Day # 1 of antimicrobial therapy. Plan Vancomycin * Loading dose: 2750 mg IV x 1 * Maintenance dose: 1000 mg IV every 12 hours * Regimen is predicted to achieve target AUC/JAIRO of 400-600 mg/L.hr * Random level ordered for: 11/30/23 @ 1130 Pharmacy will continue to follow and will adjust dose/frequency as necessary. Thank you. Pharmacy has transitioned to AUC monitoring for vancomycin. AUC/JAIRO is the preferred PK/PD target and is associated with decreased risk of nephrotoxicity compared to traditional trough targets.
[2023-11-28] MEDS: CEFEPIME 2,000 MG in SYRINGE 0 ML IV SCH (09:29)
[2023-11-28 09:37] LABS: Thyroid Stimulating Hormone 0.449 uIu/ml (0.300-4.500)
[2023-11-28 09:45] LABS: Folate (Folic Acid),Ser orPlas 5.71 ng/ml (>5.38)
[2023-11-28 10:52] LABS: Appearance Urine Cloudy (Clear); Bacteria Urine Automated None Seen (None Seen); Bilirubin Urine Negative (Negative); Blood Urine Negative (Negative); Color Urine Yellow; Glucose Urine UA Negative (Negative); Ketones Urine Negative (Negative); Leukocyte Esterase Urine 1+ (Negative); Nitrite Urine Negative (Negative); Protein Urine Trace (Negative); RBC Urine Automated 0-2 /hpf (0-2); Urobilinogen Urine Negative (Negative); WBC Urine Automated 21-50 /hpf (0-5); pH Urine 5.5 (4.5-7.5)
[2023-11-28] MEDS: MESALAMINE 1.2 GM TABDR PO SCH ×2 (12:06→21:11)
[2023-11-28] MEDS: VANCOMYCIN HCL 1,000 MG in SODIUM CHLORIDE 0.9% 250 ML IV SCH (12:08)
--- NOTE | 2023-11-28 13:15 | Orthopedic Consultation ---
Date of Service November 28, 2023 Assessment & Plan (1) Cellulitis of left lower extremity: (2) Left knee pain: Plan Patient was seen and evaluated today with Dr. Weiner with the agreed-upon plan. We had a long detailed discussion today with the patient about her left lower extremity pathology with ample amount of time for patient ask any questions or state any concerns. All questions and concerns were answered to the patient satisfaction. At this point, we recommend just continuing with IV antibiotics. We do not think that there would be significant fluid for aspiration on her knee today or over the posterior calf for diagnostic studies. This does seem like superficial cellulitis that does not travel deep into the joint or musculature per MRI. We did place an order for blood work for CRP and ESR to be completed. At this point, we do not feel that there would be any surgical intervention needed from an orthopedic standpoint. Continue with IV antibiotic treatment as prescribed per primary service. Medical management per primary. Please reach out to [facility] if this patient's situation is to change. History of Present Illness Reason for Consultation: . Left knee pain, effusion,? Aspiration Requesting Physician: . Attending Physician: Michelle Roberts MD . Doris is a 52-year-old female, who is a known patient to [facility], arrived to the emergency department yesterday evening due to concerns regarding persistent left lower extremity redness, swelling and pain, and ongoing left knee pain despite a course of Keflex and with the recent change to doxycycline. She notes that this started about 20 days ago along the left leg. She was started then on the Keflex but this did not help with the erythema to the left lower extremity. She was then seen about 3 days ago by her PCP who changed her to doxycycline. She was then seen again by a physician through [facility] who recommended that she go to the ER emergency department due to a failed course of antibiotic treatment for her continued erythema. In the emergency department she was started on IV vancomycin and cefepime. Today, she notes that her pain is well-controlled. She does note that direct palpation over the her knee over anterior lateral aspect of the calf causes discomfort. She denies any other concerns today. Allergies Allergy/AdvReac Type Severity Reaction Status Date / Time latex Allergy Intermediate Hives Verified 11/27/23 23:04 Penicillins Allergy Intermediate HIVES Verified 11/27/23 23:04 Sulfa (Sulfonamide Allergy Intermediate hives Verified 11/27/23 23:04 Antibiotics) petrolatum, yellow Allergy Unknown RASH, Verified 11/27/23 23:04 ITCHING nickel Allergy Itching Verified 11/28/23 03:25 Home Medications Medication Instructions Recorded Confirmed Type amlodipine 2.5 mg tablet 2.5 mg PO DAILY 11/27/23 11/27/23 History budesonide 3 mg 9 mg PO QAM 11/27/23 11/27/23 History capsule,delayed,extended release cetirizine 10 mg tablet (Zyrtec) 10 mg PO DAILY 11/27/23 11/27/23 History doxycycline hyclate 100 mg capsule 100 mg PO .DAILY FOR 10 DAYS 11/27/23 11/27/23 History fluoxetine 40 mg capsule 40 mg PO DAILY 11/27/23 11/27/23 History fluticasone propionate 50 1 spray intranasal DAILY PRN Nasal 11/27/23 11/27/23 History mcg/actuation nasal Congestion spray,suspension (Flonase Allergy Relief) levothyroxine 175 mcg tablet 175 mcg PO QAM 11/27/23 11/27/23 History (Synthroid) mesalamine 1.2 gram tablet,delayed 2.4 g PO DAILY 11/27/23 11/27/23 History release Past Med/Surg History Medical History (Updated 11/28/23 @ 13:22 by Alysha Ruiz PA-C) Left knee pain Hemorrhoids Submucous leiomyoma of uterus Blood in stool reason for up coming colonoscopy History of COVID-19 x2, most recent Jul 2021 > not hospitalized Anxiety also gets very anxious about medical procedures Asthma does not use res inh > well controlled per pt Hypothyroidism Hypertension Eczema Allergic conjunctivitis Abnormal uterine bleeding (AUB) Fibroid, uterine resolved Enterocele Surgical History Hx of breast biopsy benign Hx of eye surgery bilat for thyroid eye issues History of tooth extraction Hx of colonoscopy History of ERCP 2012 Hx of cholecystectomy 2013 H/O: hysterectomy 2014 Family History (Updated 09/18/23 @ 15:12 by Maria Fernanda Bass RN) Mother Colorectal cancer Hypertension Environmental allergies Asthma Grandmother (Maternal) Stroke Father Skin cancer Environmental allergies Grandfather (Maternal) Myocardial infarction Other No family history of adverse response to anesthesia No family history of bleeding disorder Denies family history of Ovarian cancer Prostate cancer Breast cancer Social History Smoking Status: Never smoker Second Hand Exposure: No; Do You Dip or Chew Tobacco: No; Hx Alcohol Use: No Hx Substance Use: No Preferred Language: Yoruba Communication Ability: Effective Oracle Reports Developer Required: No Beliefs That Will Affect Care: None marital status: Current Living Situation: Spouse and Family Current Living Situation Comment: lives with and 2 adult children in 2 story home current occupational status: employed current occupation: Teacher Other Information That Helps Us Care for You: No Feels Safe at Home: Yes Safety Concerns: Feels Safe At This Time Assistive Devices: None Review of Systems All systems reviewed & are unremarkable except as noted in HPI & below. Physical Exam . The patient is awake, alert and oriented 3, well developed and well nourished, normocephalic and atraumatic, lying in bed and in no acute distress. HEENT--PERRL, EOMI, mucous membranes and oropharynx dry. Neck--supple. No JVD. No bruits. Thyroid normal, trachea midline, no adenopathy. Heart--normal S1 and S2. No murmurs, rubs or gallops. Lungs--clear bilaterally, no respiratory distress, no accessory muscle use. Abdomen--normal bowel sounds and soft. Nontender. Nondistended, no hernias or masses, no organomegaly. Extremities--no cyanosis or clubbing. No edema. There are good distal pulses b/l. Neurologic--cranial nerves II through XII grossly intact. Rheumatologic--normal range of motion. Psychiatric--normal affect. Musculoskeletal On focused examination of the left lower extremity, she does have left lateral calf erythema, induration and warmth extending to the ankle. She also does have about 3 cm area of erythema to the left anterior knee. She does have full range of motion at the knee and ankle no subjective discomfort. Negative ballottement and bulge test. +2 DP and PT pulses. Less than 2-second capillary refill. Normal sensation. Neurovascular intact. Results & Data Results & Data Laboratory Results . Abnormal lab results 11/27/23 11/28/23 11/28/23 Range/Units 21:09 05:16 10:10 WBC 13.26 H 12.36 H (4.8-10.8) K/ul RBC 3.61 L 3.27 L (4.20-5.40) M/uL Hgb 9.4 L 8.4 L (12.0-16.0) g/dl Hct 30.7 L 27.6 L (37.0-47.0) % MCHC 30.6 L 30.4 L (32.0-36.0) g/dL RDW Std Deviation 49.1 H 48.7 H (36.4-46.3) fL RDW Coeff of Alphonse 15.8 H 15.8 H (11.5-14.5) % Plt Count 602 H 559 H (130-400) K/uL MPV 8.7 L 8.7 L (9.4-12.4) fL Neut # (Auto) 10.07 H 9.14 H (1.40-6.50) K/uL [place] # (Auto) 0.77 H 0.72 H (0.11-0.59) K/uL Potassium 3.4 L 3.3 L (3.5-5.1) mmol/L Chloride 109 H (98-107) mmol/L Glucose 109 H 100 H (70-99(Fasting)) mg/dl Calcium 8.2 L (8.6-10.3) mg/dl Magnesium 1.6 L 1.4 L (1.7-2.4) mg/dl Iron 17 L (35-150) mcg/dl TIBC 243 L (250-450) mcg/dl Transferrin % Sat 7 L (15-50) % AST 9 L (13-39) U/L Albumin 3.0 L (3.4-5.0) gm/dl Globulin 4.4 H (2.5-4.0) gm/dl Albumin/Globulin Ratio 0.8 L (0.9-2) Urine Appearance Cloudy A (Clear) Urine Protein Trace H (Negative) Ur Leukocyte Esterase 1+ H (Negative) Urine WBC (Auto) 21-50 H (0-5) /hpf U Hyaline Cast (Auto) 3-5 H (0-2) /lpf U Epithel Cells (Auto) 3-5 H (0-2) /hpf Diagnostic Findings . Knee MRI 11/28/23 00:31 Exam(s): MRI LEFT KNEE Without Contrast EXAM: MR Left Lower Extremity Without Intravenous Contrast, Knee CLINICAL HISTORY: Reason for exam: infection, edema. TECHNIQUE: Multiplanar magnetic resonance images of the left knee without intravenous contrast. COMPARISON: No relevant prior studies available. FINDINGS: The anterior and posterior cruciate ligaments are intact. The medial collateral ligament and components of the lateral collateral ligament complex are intact. Regional tendons are normal in appearance. There is advanced degenerative thinning of the articular cartilage in the medial knee compartment with marginal spur formation. The articular cartilage in the lateral knee compartment is fairly well maintained. There appears to be diffuse degeneration of the posterior horn of the medial meniscus and the meniscus is displaced peripherally. There is no defined or displaced tear. The lateral meniscus is intact. There is extensive abnormal signal within the bone marrow, particularly in the diametaphysis of the distal femur but also patchy areas in the proximal tibia. These areas are nonspecific but may represent increased cellular bone marrow is but may be seen in anemia. These areas do not have an appearance of osteomyelitis. There is extensive subcutaneous edema along the anterior and anterolateral aspects of the knee. No focal fluid collection. Small joint effusion. IMPRESSION: Subcutaneous edema along the anterior and anterolateral aspects of the knee without focal fluid collection. Degenerative changes in the medial knee compartment. Small joint effusion. Abnormal bone marrow signal as above. Electronically signed by: Edwin Rivera MD 11/28/23 06:32 AM Lower Extremity MRI 11/28/23 00:31 Exam(s): MRI EXTREMITY Without Contrast EXAM: MR Left Lower Extremity Without Intravenous Contrast CLINICAL HISTORY: Reason for exam: persistent infection. TECHNIQUE: Multiplanar magnetic resonance images of the left lower extremity without intravenous contrast. COMPARISON: No relevant prior studies available. FINDINGS: Bones/joints: Extensive areas of abnormal bone marrow within the tibia. This does not have an appearance of osteomyelitis. This is nonspecific but may represent areas of increased cellular bone marrow may be seen in anemia. Soft tissues: There is subcutaneous edema, this is most pronounced along the lateral aspect of the calf. No focal abscess is evident. There is no abnormal edema within the muscles.. IMPRESSION: Subcutaneous edema. No focal abscess. No myositis. Electronically signed by: Edwin iRvera MD 11/28/23 06:32 AM PG Care Time/CCT Total # of Minutes Spent Total Time Spent with Patient: Total time spent is greater than 50% in coordination of care (as documented) at patient's floor/unit and/or counseling patient: Coding Level of Care Code 71171 IN/OBS CONSULT LVL 2,35M Diagnoses Cellulitis of left lower extremity L03.116 Left knee pain M25.562
[2023-11-28] MEDS: IRON SUCROSE 300 MG in SODIUM CHLORIDE 0.9% 250 ML IV ONE (17:10)
--- NOTE | 2023-11-29 08:55 | Hospitalist Progress Note ---
<Statement entered by Michelle Roberts MD - 11/29/23 16:35> Erythema of knee and calf lesion do appear significantly improved with IV abx, leukocytosis resolved, afebrile throughout therefore consistent with SSTI. Agree with plan to change to clindamycin. Date of Service November 29, 2023 Assessment & Plan (1) Cellulitis of left lower extremity: Plan: Failure of outpatient Keflex, then transitioned to Doxy. Of note, reported she had fallen/trauma and also rx Cefuroxime and Doxy last month for possible infection in her knee Does not appear like erythema nodosum or pyoderma rash given her underlying IBD MRI LE w/ subcutaneous edema, no abscess or myositis MRI LEFT KNEE w/ subcutaneous edema along the anterior and anterolateral aspects of the knee without focal fluid collection.Degenerative changes in the medial knee compartment. Small joint effusion. Abnormal bone marrow signal as above (may be seen in anemia, see below, does have JOHNNIE 2nd to IBD suspected) Lyme negative, anaplasmosis/babesiosis/ehrlichiosis pending Orthopedics consulted for consideration for aspiration of knee joint given ongoing cellulitis-- did not feel enough fluid for aspiration, rec'd to continue IV abx. CRP/ESR obtained but can be elevated in setting of anemia/ulcerative colitis as well on active treatment. No evidence for osteo on MRI imaging Continued on Cefepime/Vancomycin given immunocompromised state through AM 11/28 WBC now NORMALIZED, afebrile Blood cultures NGTD MRSA nares added per patient/discussion w/ Dr Pennington on admission but did discuss w/ patient and her prior abx use/not covered for MRSA and unable to take Bactrim/sulfa abx and switching to Clindamycin PO for today 11/28 and will continue to monitor on exam on PO abx and if continued improvement plan for dc in AM +lactobacillus for probiotic, monitor for diarrhea (reported slowed) F/u urine cx, but should be covered w/ above. No urinary sx reported Iron replacement as below for anemia, ?adding PPI PT/OT consults pending Monitor labs on repeat (2) Immunocompromised: Plan: on mesalamine for her UC, recently went to [facility] for treatment brought home mesalamine in, ordered continues on budesoide 9mg daily WBC normalized, blood cultures ngtd (3) Ulcerative colitis: Plan: recently switched to [facility] as above - has another appointment in a week or so to pursue more aggressive therapy, possibly Entyvio See below regarding anemia (4) Anemia: Plan: Iron studies/B12/folate added to labs given thrombocytosis and patient reports being told anemic in the past. No increased abdominal pain Checking TSH as well given anemia ( brought in her home Synthroid) - TSH wnl at 0.449 Iron studies w/ Iron LOW 17, transferrin % sat LOW at 7, ferritin 32 (surprising ferritin only 32 even in setting of infection) --> Venofer IV ordered 11/27, repeating for today and plan for 3rd dose in AM B12 borderline 246--> PO supplementation ordered, would continue at discharge Folate borderline 5.71--> PO supplementation ordered, would continue at discharge Hgb 8.4--> 8.8 and will monitor (5) Left knee pain: Plan: suspected 2nd to infection as above treatment as outlined, improving. abx/pain control as needed (6) Failure of outpatient treatment: Plan: failure of outpatient abx. ?underlying gout/septic joint vs cellulitis failure outpatient abx as not prior coverage for MRSA (other than Doxy, but bacteriostatic) ortho consulted as above, to plan for continued abx/monitoring outpt f/u (7) Anxiety: Plan: and depression - continue home fluoxetine daily (8) Allergic rhinitis: Plan: continue Zyrtec, Flonase as needed (9) Hypertension: Plan: no on any BP medications (10) Hypothyroidism: Plan: TSH checked given anemia, wnl Remains on home replacement (brought in by ) and ordered daily (11) Iron deficiency anemia: Plan: as above, recently told iron deficient, likely from her underlying UC Iron studies added to AM labs as above, c/w JOHNNIE and Venofer to be given while inpatient. Also borderline B12/folate and PO supplementation started and should be continued Electrolyte abnormalities: Hypokalemia/hypomagnesemia Prior declined IV magnesium replacement but then was agreeable (issues w/ diarrha and PO mag in past, but didn't ever hear about SLOW MAG) --> Mag normalized 1.4--> 1.9 on AM labs. K 3.2 and additional PO supplementation to be ordered. Diarrhea reportedly slowed. 40meq PO x 1 ordered. Hopefully now that mag replete will be normalized in AM Monitor labs on repeat Plan PT/OT consults ordered for completeness, wound RN continued inpatient stay, switching to Clindamycin PO for today and possible dc tomorrow if continued improvement on oral abx Admission and Anticipated Discharge Date Admission Date: November 27, 2023 Subjective Evaluated this morning, resting in bed. Questions/concerns addressed regarding orthopedics evaluation/recommendations for continued antibiotics/not enough fluid for aspiration. No MRSA hx but she reports Dr Sanderson asked about nasal swab and will order but did discuss I believe she did/does need MRSA coverage given on Vanco and improvement. Slight red spot to her left cheek, denies having scratched this. No other rash but discussed plan to switch to Clindamycin and monitor overnight. Venofer infusing currently for her anemia. She inquires about obtaining new PCP, prior followed with Dr Messer but has been following with Dr Cortes. Messaged navigator to assist with such. Reports her diarrhea has slowed. Discussed monitoring while on clindamycin given risk but also will be continued on probiotic which she notes she had been trying to keep up with at home. Of note, discussed topical bacitracin/triple abx ointment use and some people with reaction. She does note reaction w/ rash to petroleum jelly and encouraged to avoid topical cream in meantime. Questions/concerns addressed at this time. 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 present Psych: AOx3, cooperative with exam Results & Data Results & Data Vital Signs (Past 12 Hours) Vital Signs Temp Pulse Resp BP Pulse Ox O2 Del Method 11/29/23 07:51 36.4 C L 68 18 118/79 98 Room Air Laboratory Results 11/29/23 11/28/23 11/28/23 Range/Units 09:09 10:10 05:16 WBC 10.41 (4.8-10.8) K/ul RBC 3.38 L (4.20-5.40) M/uL Hgb 8.8 L (12.0-16.0) g/dl Hct 28.5 L (37.0-47.0) % MCV 84.3 (80.0-100.0) fL MCH 26.0 (25.0-34.0) pg MCHC 30.9 L (32.0-36.0) g/dL RDW Std Deviation 48.5 H (36.4-46.3) fL RDW Coeff of Alphonse 15.9 H (11.5-14.5) % Plt Count 556 H (130-400) K/uL MPV 8.7 L (9.4-12.4) fL Immature Gran % (Auto) 1.5 % Neut % (Auto) 69.0 % Lymph % (Auto) 20.3 % Perkins % (Auto) 7.2 % Eos % (Auto) 1.7 % Baso % (Auto) 0.3 % Neut # (Auto) 7.18 H (1.40-6.50) K/uL Lymph # (Auto) 2.11 (1.20-3.40) K/uL Perkins # (Auto) 0.75 H (0.11-0.59) K/uL Eos # (Auto) 0.18 (0.00-0.50) K/uL Baso # (Auto) 0.03 (0.00-0.20) K/uL Immature Gran # (Auto) 0.16 (0.01-0.20) K/uL ESR 75 H (0-30) mm/hr Sodium Pending Potassium Pending Chloride Pending Carbon Dioxide Pending Anion Gap Pending BUN Pending Creatinine Pending Est Cr Clr Drug Dosing Pending Est GFR ( Amer) Pending Est GFR (Non-Af Amer) Pending BUN/Creatinine Ratio Pending Glucose Pending Uric Acid Pending Calcium Pending Phosphorus Pending Magnesium Pending C-Reactive Protein 3.82 H (0-0.5) mg/dl Albumin Pending Urine Color Yellow Urine Appearance Cloudy A (Clear) Urine pH 5.5 (4.5-7.5) Ur Specific Thompson 1.010 (1.000-1.030) Urine Protein Trace H (Negative) Urine Glucose (UA) Negative (Negative) Urine Ketones Negative (Negative) Urine Blood Negative (Negative) Urine Nitrite Negative (Negative) Urine Bilirubin Negative (Negative) Urine Urobilinogen Negative (Negative) Ur Leukocyte Esterase 1+ H (Negative) Urine WBC (Auto) 21-50 H (0-5) /hpf Urine RBC (Auto) 0-2 (0-2) /hpf U Hyaline Cast (Auto) 3-5 H (0-2) /lpf U Epithel Cells (Auto) 3-5 H (0-2) /hpf Urine Bacteria (Auto) None Seen (None Seen) PG Care Time/CCT Total # of Minutes Spent Total Time Spent with Patient: Total time spent is greater than 50% in coordination of care (as documented) at patient's floor/unit and/or counseling patient: Coding Level of Care Code 41735 SUB INP/OBS CARE 3/50MIN Diagnoses Cellulitis of left lower extremity L03.116 Immunocompromised D84.9 Ulcerative colitis K51.90 Anemia D64.9 Anemia type: unspecified type Left knee pain M25.562 Failure of outpatient treatment Z78.9 Anxiety F41.9 Allergic rhinitis J30.9 Hypertension I10 Hypothyroidism E03.9 Iron deficiency anemia D50.9 (4) Anemia Anemia type: unspecified type Qualified Code(s): D64.9 - Anemia, unspecified
[2023-11-29 09:52] LABS: Basophils # (auto) 0.03 K/uL (0.00-0.20); Basophils % (auto) 0.3 %; Eosinophils # (auto) 0.18 K/uL (0.00-0.50); Eosinophils % (auto) 1.7 %; Hematocrit (blood only) 28.5 % (37.0-47.0); Hemoglobin 8.8 g/dl (12.0-16.0); Immature Granulocytes # (auto) 0.16 K/uL (0.01-0.20); Immature Granulocytes % (auto) 1.5 %; Lymphocytes # (auto) 2.11 K/uL (1.20-3.40); Lymphocytes % (auto) 20.3 %; Mean Corpuscular Hgb Conc 30.9 g/dL (32.0-36.0); Mean Corpuscular Volume 84.3 fL (80.0-100.0); Mean Platelet Volume 8.7 fL (9.4-12.4); Monocytes # (auto) 0.75 K/uL (0.11-0.59); Monocytes % (auto) 7.2 %; Neutrophils # (auto) 7.18 K/uL (1.40-6.50); Platelet Count 556 K/uL (130-400); RDW Coefficient of Variation 15.9 % (11.5-14.5); RDW Standard Deviation 48.5 fL (36.4-46.3); Red Blood Count 3.38 M/uL (4.20-5.40); White Blood Count 10.41 K/ul (4.8-10.8)
[2023-11-29] MEDS: IRON SUCROSE 300 MG in SODIUM CHLORIDE 0.9% 250 ML IV ONE (09:53)
[2023-11-29 10:31] LABS: Albumin Level 3.2 gm/dl (3.4-5.0); BUN Creatinine Ratio 10.7 (10-20); Calcium 8.8 mg/dl (8.6-10.3); Creatinine Clr Calc Pharmacy 74.1 ml/min; Est GFR (African American) 64.5 ml/min; Est GFR (Non-African American) 55.6 ml/min; Magnesium 1.9 mg/dl (1.7-2.4); Phosphorus 4.1 mg/dl (2.5-4.9); Potassium 3.2 mmol/L (3.5-5.1); Uric Acid 6.1 mg/dl (2.6-7.2)
[2023-11-29] MEDS: POTASSIUM CHLORIDE CRTAB 20 MEQ TABCR PO STA (11:00)
[2023-11-29] MEDS: CLINDAMYCIN HCL 150 MG CAP PO SCH (11:00)
[2023-11-29] MEDS: FOLIC ACID 1 MG TAB PO SCH (11:20)
[2023-11-29] MEDS: CYANOCOBALAMIN (B-12) 500 MCG TABLET PO SCH (11:20)
[2023-11-29] MEDS: ADVANCED PROBIOTIC 625 MG CAPSULE PO SCH (11:20)
[2023-11-30 07:34] LABS: Basophils # (auto) 0.04 K/uL (0.00-0.20); Basophils % (auto) 0.3 %; Eosinophils # (auto) 0.29 K/uL (0.00-0.50); Eosinophils % (auto) 2.1 %; Hematocrit (blood only) 26.5 % (37.0-47.0); Hemoglobin 8.1 g/dl (12.0-16.0); Immature Granulocytes # (auto) 0.45 K/uL (0.01-0.20); Immature Granulocytes % (auto) 3.3 %; Lymphocytes # (auto) 2.57 K/uL (1.20-3.40); Lymphocytes % (auto) 18.6 %; Mean Corpuscular Hemoglobin 25.8 pg (25.0-34.0); Mean Corpuscular Hgb Conc 30.6 g/dL (32.0-36.0); Mean Corpuscular Volume 84.4 fL (80.0-100.0); Mean Platelet Volume 8.7 fL (9.4-12.4); Monocytes # (auto) 0.89 K/uL (0.11-0.59); Monocytes % (auto) 6.4 %; Neutrophils # (auto) 9.59 K/uL (1.40-6.50); Neutrophils % (auto) 69.3 %; Nucleated RBC # (auto) 0.04 K/uL (0.00-0.12); Nucleated RBC % (auto) 0.3 %; Platelet Count 518 K/uL (130-400); RDW Coefficient of Variation 15.8 % (11.5-14.5); RDW Standard Deviation 48.1 fL (36.4-46.3); Red Blood Count 3.14 M/uL (4.20-5.40); White Blood Count 13.83 K/ul (4.8-10.8)
[2023-11-30 08:14] LABS: Albumin Level 3.1 gm/dl (3.4-5.0); BUN Creatinine Ratio 15.9 (10-20); Calcium 8.5 mg/dl (8.6-10.3); Creatinine Clr Calc Pharmacy 65.6 ml/min; Est GFR (African American) 55.9 ml/min; Est GFR (Non-African American) 48.3 ml/min; Magnesium 1.8 mg/dl (1.7-2.4); Phosphorus 4.2 mg/dl (2.5-4.9); Potassium 3.4 mmol/L (3.5-5.1)
[2023-11-30] MEDS: IRON SUCROSE 300 MG in SODIUM CHLORIDE 0.9% 250 ML IV SCH (08:15)
--- NOTE | 2023-11-30 08:46 | Hospitalist Progress Note ---
<Statement entered by Michelle Roberts MD - 11/30/23 18:34> Cellulitis was significantly improved on cefepime 11/28 then erythema and WBC worsened today after 24h oral clindamycin. Potentially gram negative infection (pseudomonas etc) resistant to common antibiotics. Has risk factors - IBD on immunosuppressives, recent hospitalizations. Changing back to cefepime and follow whether improved again on this. Replacing iron, B12, folate deficiencies. Date of Service November 30, 2023 Assessment & Plan (1) Cellulitis of left lower extremity: Plan: Failure of outpatient Keflex, then transitioned to Doxy. Of note, reported she had fallen/trauma and also rx Cefuroxime and Doxy last month for possible infection in her knee Does not appear like erythema nodosum or pyoderma rash given her underlying IBD MRI LE w/ subcutaneous edema, no abscess or myositis MRI LEFT KNEE w/ subcutaneous edema along the anterior and anterolateral aspects of the knee without focal fluid collection.Degenerative changes in the medial knee compartment. Small joint effusion. Abnormal bone marrow signal as above (may be seen in anemia, see below, does have JOHNNIE 2nd to IBD suspected) Lyme negative, anaplasmosis/babesiosis/ehrlichiosis pending Orthopedics consulted for consideration for aspiration of knee joint given ongoing cellulitis-- did not feel enough fluid for aspiration, rec'd to continue IV abx. CRP/ESR obtained but can be elevated in setting of anemia/ulcerative colitis as well on active treatment. No evidence for osteo on MRI imaging Cefepime/Vancomycin given immunocompromised state through AM 5/1, switched to Clindamycin for coverage and monitored overnight to ensure continued improvement WBC WORSE TODAY, afebrile however, but slightly increased redness/tenderness and decision to ADD BACK Cefepime for now/monitor overnight. May require FLQ for pseudomonal coverage. Will also discuss with supervising provider given cats at home about coverage for such/add back Doxy vs Azithromycin Blood cultures REMAIN NGTD Venous doppler NEGATIVE for DVT Urine cx negative Will hold off adding doxy/azithro for now, cdiff testing also ordered given WBC/diarrhea and abx use but denied abd pain Wound RN saw today, tubigrips applied Monitor labs/exam on repeat (2) Immunocompromised: Plan: on mesalamine for her UC, recently went to [facility] for treatment brought home mesalamine in, ordered continues on budesonide 9mg daily WBC normalized, blood cultures ngtd however WBc elevated today and abx changed as above (3) Ulcerative colitis: Plan: recently switched to [facility] as above - has another appointment in a week or so to pursue more aggressive therapy, possibly Entyvio - reports has c-scope arranged next week, will need to see if needing to be re- scheduled See below regarding anemia (4) Anemia: Plan: Iron studies/B12/folate added to labs given thrombocytosis and patient reports being told anemic in the past. No increased abdominal pain Checking TSH as well given anemia ( brought in her home Synthroid) - TSH wnl at 0.449 Iron studies w/ Iron LOW 17, transferrin % sat LOW at 7, ferritin 32 (surprising ferritin only 32 even in setting of infection) --> Venofer IV x 3 doses ordered, completed / B12 borderline 246 --> PO supplementation ordered, would continue at discharge Folate borderline 5.71 --> PO supplementation ordered, would continue at discharge Monitor CBC, f/u GI next week as above (5) Left knee pain: Plan: suspected 2nd to infection as above treatment as outlined, improving. abx/pain control as needed (6) Failure of outpatient treatment: Plan: failure of outpatient abx. ?underlying gout/septic joint vs cellulitis failure outpatient abx as not prior coverage for MRSA (other than Doxy, but bacteriostatic) ortho consulted as above, to plan for continued abx/monitoring outpt f/u (7) Anxiety: Plan: and depression - continue home fluoxetine daily (8) Allergic rhinitis: Plan: continue Zyrtec, Flonase as needed (9) Hypertension: Plan: no on any BP medications (10) Hypothyroidism: Plan: TSH checked given anemia, wnl Remains on home replacement (brought in by ) and ordered daily (11) Iron deficiency anemia: Plan: as above, recently told iron deficient, likely from her underlying UC Iron studies added to AM labs as above, c/w JOHNNIE and Venofer to be given while inpatient. Also borderline B12/folate and PO supplementation started and should be continued Electrolyte abnormalities: Hypokalemia/hypomagnesemia Prior declined IV magnesium replacement but then was agreeable (issues w/ diarrha and PO mag in past, but didn't ever hear about SLOW MAG) Replacement ordered, improvement Mag 1.8 on repeat, K 3.4 and additional PO ordered Monitor labs in AM Plan continued inpatient stay given worsened appearance of cellulitis Venous doppler checked, negative. Wound RN saw/applied tubigrip Cefepime added back on, monitor status in AM but if improvement likely need to cover for both MRSA/pseudomonas empirically given prior improvement/negative cultures Admission and Anticipated Discharge Date Admission Date: November 27, 2023 Subjective Evaluated this morning, wound RN in room. LLE appears slightly more red/warm today, more tenderness. WBC increased and discussed adding back Cefepime/pseudomonal coverage. She does note diarrhea about the same, cdiff to be sent, denies increased abd pain. Discussed monitoring w/ cefepime back on and if improved will need to cover for both MSRA/pseudomonas, however she did mention has two cats at home, indoors, do sleep w/ her in bed but denied any scratches/bites, but will discuss w/ supervising provider about possible need for additional coverage but will continue Clinda/Cefepime for now. Physical Exam Physical Exam: General: 52yo female sitting up in bed, NAD, anxious appearing at times HEENT: head atraumatic, normocephalic, trachea midline Resp; Even/unlabored, no w/c/r, on room air 98% CV: RRR, no significant m/r/g, no pitting edema GI: +BS, soft, nontender : no mansfield MSK/Neuro/skin: LLE -- knee w/ bruising anteriorly/laterally, +tenderness to lateral tibial plateu left lateral calf with INCREASED erythema/warmth, slightly less edema but slightly increased tenderness to palpation Psych: AOx3, cooperative with exam Results & Data Results & Data Vital Signs (Past 12 Hours) Vital Signs Temp Pulse Resp BP Pulse Ox O2 Del Method 11/30/23 08:27 36.6 C 73 16 112/70 96 Room Air 11/30/23 07:27 36.6 C 76 16 122/77 97 Room Air 11/29/23 20:48 36.8 C 72 17 110/69 98 Room Air Laboratory Results 11/30/23 11/29/23 Range/Units 06:21 10:25 WBC 13.83 H (4.8-10.8) K/ul RBC 3.14 L (4.20-5.40) M/uL Hgb 8.1 L (12.0-16.0) g/dl Hct 26.5 L (37.0-47.0) % MCV 84.4 (80.0-100.0) fL MCH 25.8 (25.0-34.0) pg MCHC 30.6 L (32.0-36.0) g/dL RDW Std Deviation 48.1 H (36.4-46.3) fL RDW Coeff of Alphonse 15.8 H (11.5-14.5) % Plt Count 518 H (130-400) K/uL MPV 8.7 L (9.4-12.4) fL Immature Gran % (Auto) 3.3 % Neut % (Auto) 69.3 % Lymph % (Auto) 18.6 % Winn % (Auto) 6.4 % Eos % (Auto) 2.1 % Baso % (Auto) 0.3 % Neut # (Auto) 9.59 H (1.40-6.50) K/uL Lymph # (Auto) 2.57 (1.20-3.40) K/uL Winn # (Auto) 0.89 H (0.11-0.59) K/uL Eos # (Auto) 0.29 (0.00-0.50) K/uL Baso # (Auto) 0.04 (0.00-0.20) K/uL Immature Gran # (Auto) 0.45 H (0.01-0.20) K/uL Absolute Nucleated RBC 0.04 (0.00-0.12) K/uL Nucleated RBC % (auto) 0.3 % Sodium 137 (136-145) mmol/L Potassium 3.4 L (3.5-5.1) mmol/L Chloride 107 (98-107) mmol/L Carbon Dioxide 24 (21-32) mmol/L Anion Gap 6 (3-11) BUN 20 (6-23) mg/dl Creatinine 1.26 H (0.6-1.2) mg/dl Est Cr Clr Drug Dosing 65.6 ml/min Est GFR ( Amer) 55.9 ml/min Est GFR (Non-Af Amer) 48.3 ml/min BUN/Creatinine Ratio 15.9 (10-20) Glucose 97 (70-99(Fasting)) mg/dl Calcium 8.5 L (8.6-10.3) mg/dl Phosphorus 4.2 (2.5-4.9) mg/dl Magnesium 1.8 (1.7-2.4) mg/dl Albumin 3.1 L (3.4-5.0) gm/dl Nasal Screen MRSA (PCR) Negative (Negative) PG Care Time/CCT Total # of Minutes Spent Total Time Spent with Patient: Total time spent is greater than 50% in coordination of care (as documented) at patient's floor/unit and/or counseling patient: Coding Level of Care Code 12020 SUB INP/OBS CARE 3/50MIN Diagnoses Cellulitis of left lower extremity L03.116 Immunocompromised D84.9 Ulcerative colitis K51.90 Anemia D64.9 Anemia type: unspecified type Left knee pain M25.562 Failure of outpatient treatment Z78.9 Anxiety F41.9 Allergic rhinitis J30.9 Hypertension I10 Hypothyroidism E03.9 Iron deficiency anemia D50.9 (4) Anemia Anemia type: unspecified type Qualified Code(s): D64.9 - Anemia, unspecified
--- NOTE | 2023-11-30 10:01 | Ultrasound Report ---
LEFT LOWER EXTREMITY VENOUS DOPPLER HISTORY: Acute pain and swelling of the left lower leg LLE pain, r/o DVT COMPARISON STUDY: MRI 11/28/2023 FINDINGS: There is normal compressibility, flow, and augmentation within the left lower extremity lizabeth p venous system. Subcutaneous edema with superficial venous varicosities. IMPRESSION: No DVT within the left lower extremity. ACT 112: Negative or not required by law. Electronically signed by: Jonathan Fernandez M.D. 11/30/2023 10:00 AM
[2023-11-30] MEDS ORDERED: VANCOMYCIN LEVEL ONE (11:00)
[2023-11-30] MEDS: CEFEPIME 2,000 MG in SYRINGE 0 ML IV SCH (12:54)
[2023-11-30 19:58] VITALS: TEMP 98.2
[2023-12-01 07:01] LABS: Basophils # (auto) 0.04 K/uL (0.00-0.20); Basophils % (auto) 0.3 %; Eosinophils # (auto) 0.24 K/uL (0.00-0.50); Eosinophils % (auto) 1.9 %; Hematocrit (blood only) 26.8 % (37.0-47.0); Hemoglobin 8.1 g/dl (12.0-16.0); Immature Granulocytes # (auto) 0.54 K/uL (0.01-0.20); Immature Granulocytes % (auto) 4.3 %; Lymphocytes # (auto) 2.34 K/uL (1.20-3.40); Lymphocytes % (auto) 18.6 %; Mean Corpuscular Hemoglobin 25.8 pg (25.0-34.0); Mean Corpuscular Hgb Conc 30.2 g/dL (32.0-36.0); Mean Corpuscular Volume 85.4 fL (80.0-100.0); Mean Platelet Volume 8.6 fL (9.4-12.4); Monocytes # (auto) 0.89 K/uL (0.11-0.59); Monocytes % (auto) 7.1 %; Neutrophils % (auto) 67.8 %; Nucleated RBC # (auto) 0.06 K/uL (0.00-0.12); Nucleated RBC % (auto) 0.5 %; Platelet Count 488 K/uL (130-400); RDW Coefficient of Variation 15.9 % (11.5-14.5); RDW Standard Deviation 49.9 fL (36.4-46.3); Red Blood Count 3.14 M/uL (4.20-5.40); White Blood Count 12.55 K/ul (4.8-10.8)
[2023-12-01 07:33] VITALS: RESP 15; O2SAT 96
[2023-12-01 07:34] LABS: Albumin Globulin Ratio 0.8 (0.9-2); BUN Creatinine Ratio 17.1 (10-20); Bilirubin,Total 0.3 mg/dl (0.2-1.0); C Reactive Protein 4.77 mg/dl (0-0.5); Calcium 8.4 mg/dl (8.6-10.3); Creatinine Clr Calc Pharmacy 72.1 ml/min; Est GFR (African American) 61.2 ml/min; Est GFR (Non-African American) 52.8 ml/min; Globulin 3.6 gm/dl (2.5-4.0); Magnesium 1.7 mg/dl (1.7-2.4); Potassium 3.3 mmol/L (3.5-5.1); Total Protein 6.6 gm/dl (6.0-8.3)
--- NOTE | 2023-12-01 08:13 | Hospitalist Progress Note ---
Date of Service December 01, 2023 Assessment & Plan (1) Cellulitis of left lower extremity: Plan: Failure of outpatient Keflex, then transitioned to Doxy. Of note, reported she had fallen/trauma and also rx Cefuroxime and Doxy last month for possible infection in her knee Does not appear like erythema nodosum or pyoderma rash given her underlying IBD MRI LE w/ subcutaneous edema, no abscess or myositis MRI LEFT KNEE w/ subcutaneous edema along the anterior and anterolateral aspects of the knee without focal fluid collection.Degenerative changes in the medial knee compartment. Small joint effusion. Abnormal bone marrow signal as above (may be seen in anemia, see below, does have JOHNNIE 2nd to IBD suspected) Lyme negative, anaplasmosis/babesiosis/ehrlichiosis pending Orthopedics consulted for consideration for aspiration of knee joint given ongoing cellulitis-- did not feel enough fluid for aspiration, rec'd to continue IV abx. CRP/ESR obtained but can be elevated in setting of anemia/ulcerative colitis as well on active treatment. No evidence for osteo on MRI imaging Cefepime/Vancomycin given immunocompromised state through AM 11/28, switched to Clindamycin for coverage and monitored overnight to ensure continued improvement WBC WORSE TODAY, afebrile however, but slightly increased redness/tenderness and decision to ADD BACK Cefepime for now/monitor overnight. May require FLQ for pseudomonal coverage. Will also discuss with supervising provider given cats at home about coverage for such/add back Doxy vs Azithromycin Blood cultures REMAIN NGTD Venous doppler NEGATIVE for DVT Urine cx negative Will hold off adding doxy/azithro for now, cdiff testing also ordered given WBC/diarrhea and abx use but denied abd pain Wound RN saw today, tubigrips applied Monitor labs/exam on repeat 11/30 -WBC trending down on repeat. If exam appears improved would continue coverage for pseudomonas given addition back of cefepime with improvement/not prior covered (2) Immunocompromised: Plan: on mesalamine for her UC, recently went to [facility] for treatment brought home mesalamine in, ordered continues on budesonide 9mg daily WBC normalized, blood cultures ngtd however WBc elevated today and abx changed as above (3) Ulcerative colitis: Plan: recently switched to [facility] as above - has another appointment in a week or so to pursue more aggressive therapy, possibly Entyvio - reports has c-scope arranged next week, will need to see if needing to be re- scheduled See below regarding anemia (4) Anemia: Plan: Iron studies/B12/folate added to labs given thrombocytosis and patient reports being told anemic in the past. No increased abdominal pain Checking TSH as well given anemia ( brought in her home Synthroid) - TSH wnl at 0.449 Iron studies w/ Iron LOW 17, transferrin % sat LOW at 7, ferritin 32 (surprising ferritin only 32 even in setting of infection) --> Venofer IV x 3 doses ordered, completed /2 B12 borderline 246 --> PO supplementation ordered, would continue at discharge Folate borderline 5.71 --> PO supplementation ordered, would continue at discharge Monitor CBC, f/u GI next week as above (5) Left knee pain: Plan: suspected 2nd to infection as above treatment as outlined, improving. abx/pain control as needed (6) Failure of outpatient treatment: Plan: failure of outpatient abx. ?underlying gout/septic joint vs cellulitis failure outpatient abx as not prior coverage for MRSA (other than Doxy, but bacteriostatic) ortho consulted as above, to plan for continued abx/monitoring outpt f/u (7) Anxiety: Plan: and depression - continue home fluoxetine daily (8) Allergic rhinitis: Plan: continue Zyrtec, Flonase as needed (9) Hypertension: Plan: no on any BP medications (10) Hypothyroidism: Plan: TSH checked given anemia, wnl Remains on home replacement (brought in by ) and ordered daily (11) Iron deficiency anemia: Plan: as above, recently told iron deficient, likely from her underlying UC Iron studies added to AM labs as above, c/w JOHNNIE and Venofer to be given while inpatient. Also borderline B12/folate and PO supplementation started and should be continued Electrolyte abnormalities: Hypokalemia/hypomagnesemia Prior declined IV magnesium replacement but then was agreeable (issues w/ diarrha and PO mag in past, but didn't ever hear about SLOW MAG) Replacement ordered, improvement Mag 1.8 on repeat, K 3.4 and additional PO ordered Monitor labs in AM Plan continued inpatient stay given worsened appearance of cellulitis Venous doppler checked, negative. Wound RN saw/applied tubigrip Cefepime added back on, monitor status in AM but if improvement likely need to cover for both MRSA/pseudomonas empirically given prior improvement/negative cultures Admission and Anticipated Discharge Date Admission Date: November 27, 2023 Results & Data Results & Data Vital Signs (Past 12 Hours) Vital Signs Temp Pulse Resp BP Pulse Ox O2 Del Method 12/01/23 07:31 36.8 C 63 15 105/61 96 Room Air Laboratory Results 12/01/23 11/30/23 11/30/23 Range/Units 06:19 13:40 06:21 WBC 12.55 H (4.8-10.8) K/ul RBC 3.14 L (4.20-5.40) M/uL Hgb 8.1 L (12.0-16.0) g/dl Hct 26.8 L (37.0-47.0) % MCV 85.4 (80.0-100.0) fL MCH 25.8 (25.0-34.0) pg MCHC 30.2 L (32.0-36.0) g/dL RDW Std Deviation 49.9 H (36.4-46.3) fL RDW Coeff of Alphonse 15.9 H (11.5-14.5) % Plt Count 488 H (130-400) K/uL MPV 8.6 L (9.4-12.4) fL Immature Gran % (Auto) 4.3 % Neut % (Auto) 67.8 % Lymph % (Auto) 18.6 % [place] % (Auto) 7.1 % Eos % (Auto) 1.9 % Baso % (Auto) 0.3 % Neut # (Auto) 8.50 H (1.40-6.50) K/uL Lymph # (Auto) 2.34 (1.20-3.40) K/uL [place] # (Auto) 0.89 H (0.11-0.59) K/uL Eos # (Auto) 0.24 (0.00-0.50) K/uL Baso # (Auto) 0.04 (0.00-0.20) K/uL Immature Gran # (Auto) 0.54 H (0.01-0.20) K/uL Absolute Nucleated RBC 0.06 (0.00-0.12) K/uL Nucleated RBC % (auto) 0.5 % ESR 74 H (0-30) mm/hr Sodium 138 137 (136-145) mmol/L Potassium 3.3 L 3.4 L (3.5-5.1) mmol/L Chloride 109 H 107 (98-107) mmol/L Carbon Dioxide 25 24 (21-32) mmol/L Anion Gap 4 6 (3-11) BUN 20 20 (6-23) mg/dl Creatinine 1.17 1.26 H (0.6-1.2) mg/dl Est Cr Clr Drug Dosing 72.1 65.6 ml/min Est GFR ( Amer) 61.2 55.9 ml/min Est GFR (Non-Af Amer) 52.8 48.3 ml/min BUN/Creatinine Ratio 17.1 15.9 (10-20) Glucose 117 H 97 (70-99(Fasting)) mg/dl Calcium 8.4 L 8.5 L (8.6-10.3) mg/dl Phosphorus 4.2 (2.5-4.9) mg/dl Magnesium 1.7 1.8 (1.7-2.4) mg/dl Total Bilirubin 0.3 (0.2-1.0) mg/dl AST 7 L (13-39) U/L ALT 7 (7-52) U/L Alkaline Phosphatase 64 (34-104) U/L C-Reactive Protein 4.77 H (0-0.5) mg/dl Total Protein 6.6 (6.0-8.3) gm/dl Albumin 3.0 L 3.1 L (3.4-5.0) gm/dl Globulin 3.6 (2.5-4.0) gm/dl Albumin/Globulin Ratio 0.8 L (0.9-2) Procalcitonin Pending Stl C. diff Tox B Gene Negative Cdiff Gene (Neg) PG Care Time/CCT Total # of Minutes Spent Total Time Spent with Patient: Total time spent is greater than 50% in coordination of care (as documented) at patient's floor/unit and/or counseling patient: Coding Diagnoses Cellulitis of left lower extremity L03.116 Immunocompromised D84.9 Ulcerative colitis K51.90 Anemia D64.9 Anemia type: unspecified type Left knee pain M25.562 Failure of outpatient treatment Z78.9 Anxiety F41.9 Allergic rhinitis J30.9 Hypertension I10 Hypothyroidism E03.9 Iron deficiency anemia D50.9 (4) Anemia Anemia type: unspecified type Qualified Code(s): D64.9 - Anemia, unspecified
[2023-12-01] MEDS: POTASSIUM CHLORIDE CRTAB 20 MEQ TABCR PO STA (08:36)
--- NOTE | 2023-12-01 11:56 | Discharge Summary ---
<Statement entered by Michelle Roberts MD - 12/02/23 17:35> I personally examined Ms. Edmondson day of discharge. L knee erythema has essentially resolved with no joint effusion on exam. Round erythematous area L lateral calf substantially improved since admission - surrounding patchy erythema resolved, central area darkening no longer very red, no warmth and is less indurated. Agree with plan to discharge with 1 week oral clindamycin and fluoroquinolone - very broad coverage and increased risk of C. diff, however, failed repeated courses of various antibiotics and only finally improved on both clindamycin and pseudomonal coverage. Date of Service December 01, 2023 Admission HPI Per Admitting Provider The patient is a 52-year-old female with a past medical history including ulcerative colitis on chronic budesonide and mesalamine, cellulitis of left lower extremity, anxiety, hypothyroidism, hypertension, allergic rhinitis and mild obesity. She began treatment for a left lower extremity infection on 11/13 with Keflex, and was then changed to doxycycline on 11/23, and that they had negative DVT studies bilateral lower extremities. Due to persistence and worsening of symptoms, she presents to the ED for further assessment. Admission Exam Per Admitting Provider The patient is awake, alert and oriented 3, well developed and well nourished, normocephalic and atraumatic, lying in bed and in no acute distress. HEENT--PERRL, EOMI, mucous membranes and oropharynx dry. Neck--supple. No JVD. No bruits. Thyroid normal, trachea midline, no adenopathy. Heart--normal S1 and S2. No murmurs, rubs or gallops. Lungs--clear bilaterally, no respiratory distress, no accessory muscle use. Abdomen--normal bowel sounds and soft. Nontender. Nondistended, no hernias or masses, no organomegaly. Extremities--no cyanosis or clubbing. No edema. There are good distal pulses b/l. Dermatologic--left lateral calf with erythema, induration and warmth extending to ankle. Left knee 2 small areas of erythema laterally. Areas marked for progression Neurologic--cranial nerves II through XII grossly intact. Rheumatologic--normal range of motion. Psychiatric--normal affect. Principal Diagnosis LLE Cellulitis, failure of outpatient antibiotics Discharge Exam General: 52yo female sitting up in bed, NAD, reporting feeling better/less painful, less red HEENT: head atraumatic, normocephalic, trachea midline Resp; Even/unlabored, no w/c/r, on room air 98% CV: RRR, no significant m/r/g, no pitting edema GI: +BS, soft, nontender : no mansfield MSK/Neuro/skin: decreased ecchymosis to anterior knee, slightly tender to lateral knee, ?piece of bone, does not appear to be any underlying blister/a bscess LLE lateral thigh with light tubigrips in place, removed, decreased redness/warmth, less tenderness, less induration, no appreciable fluid collection/abscess calves nontender otherwise,pulses palpable Psych: AOx3, cooperative with exam, wanting to go home if able Discharge Data Allergies Allergy/AdvReac Type Severity Reaction Status Date / Time latex Allergy Intermediate Hives Verified 11/27/23 23:04 Penicillins Allergy Intermediate HIVES Verified 11/27/23 23:04 Sulfa (Sulfonamide Allergy Intermediate hives Verified 11/27/23 23:04 Antibiotics) petrolatum, yellow Allergy Unknown RASH, Verified 11/27/23 23:04 ITCHING nickel Allergy Itching Verified 11/28/23 03:25 Consultations 11/27/23 23:08 ED Decision to Admit Stat 11/28/23 09:48 Consult Orthopedic Surgery Routine Ordered Studies Knee MRI 11/28/23 00:31 Exam(s): MRI LEFT KNEE Without Contrast EXAM: MR Left Lower Extremity Without Intravenous Contrast, Knee CLINICAL HISTORY: Reason for exam: infection, edema. TECHNIQUE: Multiplanar magnetic resonance images of the left knee without intravenous contrast. COMPARISON: No relevant prior studies available. FINDINGS: The anterior and posterior cruciate ligaments are intact. The medial collateral ligament and components of the lateral collateral ligament complex are intact. Regional tendons are normal in appearance. There is advanced degenerative thinning of the articular cartilage in the medial knee compartment with marginal spur formation. The articular cartilage in the lateral knee compartment is fairly well maintained. There appears to be diffuse degeneration of the posterior horn of the medial meniscus and the meniscus is displaced peripherally. There is no defined or displaced tear. The lateral meniscus is intact. There is extensive abnormal signal within the bone marrow, particularly in the diametaphysis of the distal femur but also patchy areas in the proximal tibia. These areas are nonspecific but may represent increased cellular bone marrow is but may be seen in anemia. These areas do not have an appearance of osteomyelitis. There is extensive subcutaneous edema along the anterior and anterolateral aspects of the knee. No focal fluid collection. Small joint effusion. IMPRESSION: Subcutaneous edema along the anterior and anterolateral aspects of the knee without focal fluid collection. Degenerative changes in the medial knee compartment. Small joint effusion. Abnormal bone marrow signal as above. Electronically signed by: Edwin Rivera MD 11/28/23 06:32 AM Lower Extremity MRI 11/28/23 00:31 Exam(s): MRI EXTREMITY Without Contrast EXAM: MR Left Lower Extremity Without Intravenous Contrast CLINICAL HISTORY: Reason for exam: persistent infection. TECHNIQUE: Multiplanar magnetic resonance images of the left lower extremity without intravenous contrast. COMPARISON: No relevant prior studies available. FINDINGS: Bones/joints: Extensive areas of abnormal bone marrow within the tibia. This does not have an appearance of osteomyelitis. This is nonspecific but may represent areas of increased cellular bone marrow may be seen in anemia. Soft tissues: There is subcutaneous edema, this is most pronounced along the lateral aspect of the calf. No focal abscess is evident. There is no abnormal edema within the muscles.. IMPRESSION: Subcutaneous edema. No focal abscess. No myositis. Electronically signed by: Edwin Rivera MD 11/28/23 06:32 AM Venous Doppler Study 11/30/23 08:45 LEFT LOWER EXTREMITY VENOUS DOPPLER HISTORY: Acute pain and swelling of the left lower leg LLE pain, r/o DVT COMPARISON STUDY: MRI 11/28/2023 FINDINGS: There is normal compressibility, flow, and augmentation within the left lower extremity deep venous system. Subcutaneous edema with superficial venous varicosities. IMPRESSION: No DVT within the left lower extremity. ACT 112: Negative or not required by law. Electronically signed by: Jonathan Fernandez M.D. 11/30/2023 10:00 AM Hospital Course (1) Cellulitis of left lower extremity: 52-year-old woman past medical history significant for ulcerative colitis on mesalamine and budesonide at baseline presented with ongoing left lower extremity cellulitis for the past month despite treatment with cefuroxime and doxycycline. Denies any known tick bites, no bull's-eye rash on exam, initial Lyme screening negative however sent for anaplasmosis babesiosis and ehrlichiosis pending at discharge. Skin exam did not appear as erythema nodosum or pyoderma given her underlying inflammatory bowel disease. On admission obtained imaging with MRI of her lower extremity as well as her LEFT knee (given she was going to have outpatient imaging for this with sports medicine for the knee) MRI of the lower extremity did not show any abscess or myositis. Noted subcutaneous edema and of note nonspecific area of increased cellular bone marrow which may be seen in anemia (which the patient has significant iron deficiency anemia likely from her underlying inflammatory bowel disease, along with borderline B12 and folate levels and was provided with Venofer, B12 IM and oral folate while inpatient) and has outpatient follow-up with GI next week for repeat abdominal imaging and colonoscopy next . She was provided broad-spectrum antibiotics with IV vancomycin and cefepime on admission given immunocompromise state for continued through 11/28. MRI of the knee noted subcutaneous edema along the anterior and anterior lateral aspects of the knee without focal fluid collection. Degenerative changes in the medial knee compartment. Small joint effusion. Abnormal bone signal as above Orthopedics was consulted for consideration for aspiration of the knee joint giving ongoing cellulitis or evaluation for underlying gout or pseudogout crystal collection however they did not feel enough fluid for drainage and recommended to continue antibiotic treatment and can have outpatient follow-up. Did not feel septic joint. Venous Doppler was also obtained which was negative for DVT Blood cultures remain negative to date and white count had improved and was within normal limits and switched to clindamycin given allergy for Bactrim and wanting to cover for MRSA given appearance for continued coverage and monitoring overnight to ensure continued improvement on oral antibiotics given previous failure however redness and cellulitis slightly worse on 11/29 along with elevated white count and concerns for needing pseudomonal coverage and added back cefepime with improvement on exam 11/30 with decreased white count. Blood cultures remained negative to date at that time and patient felt improvement with addition of light Tubigrip from wound care and to continue both clindamycin and ciprofloxacin for broad-spectrum coverage of both MRSA and Pseudomonas along with a probiotic. She was notably tested for C. difficile with her GI provider at [facility] last month which was negative and also checked while inpatient which was again negative however did stress if she develops any fevers abdominal pain or worsening diarrhea that this should be repeated, which interestingly she noted diarrhea actually slowed while inpatient on abx. No increased abd pain reported prior to dc. Discussed to return to the emergency department for cellulitis rash without continued improvement as an outpatient but otherwise should follow-up with primary care for ongoing management of her care CM [place] (2) Immunocompromised: As above on mesalamine and budesonide for her underlying ulcerative colitis and recently being seen by [facility] for treatment. She was just seen last month for testing and has planned CAT scan next Monday and colonoscopy on Monday. Blood cultures remain negative to date and antibiotics as outlined (3) Ulcerative colitis: recently switched to [facility] as above-- to continue follow-up next week as outlined and consideration to possibly start more aggressive therapy like impetigo Found to have significant iron deficiency anemia, not surprising, but also replaced B12 and folate which were continued discharge (4) Anemia: Iron studies checked given MCV less than 70 setting of ulcerative colitis as well. Iron low at 17, transferrin sat low at 7%, ferritin low at 32 (surprising in the setting of active infection) Was provided Venofer IV x 3 doses inpatient. TSH wnl, continued on home Synthroid Also checked B12/folate for completeness which were borderline low --> B12 246, folate 5.71 --> oral supplementation started and continued discharge F.u PCP (5) Left knee pain: suspected 2nd to infection as above but also 2nd to fall earlier this year. abx as outlined above, improvement in pain . did consult ortho as above while inpatient, no aspiration planned and to continue abx cannot r/o underlying gout/pseudogout but denied hx of such, uric acid level not elevated on serum labs f/u orthopedics outpt as previously seeing (6) Failure of outpatient treatment: (7) Anxiety: and depression - continued home fluoxetine daily (8) Allergic rhinitis: continued Zyrtec, Flonase (9) Hypertension: no on any BP medications at baseline, BPs acceptable f/u pcp (10) Hypothyroidism: TSH checked given anemia, wnl Remained on home replacement (brought in by ) (11) Iron deficiency anemia: see above Hypokalemia/hypomagnesemia -- Initially the patient declined IV magnesium replacement as she had diarrhea with oral replacement in the past but was discussed and provided with improvement of magnesium on repeat labs. Remained stable prior to discharge without need for additional replacement but could consider slow magnesium as an outpatient. Continued potassium replacement was provided and did give 40 mEq prior to discharge for potassium of 3.3 however suspect secondary to diarrheal losses. C. difficile testing negative as above. And patient reported diarrhea slowed. Follow-up primary care and GI outpt Plan .Patient reporting wanting to go home today/feeling better. Discharged with on ciprofloxacin and clindamycin for broad-spectrum coverage as cultures remain negative and worsened slightly after stopping pseudomonal coverage and is at high risk given immunocompromise state. Discussed with supervising provider who agreed to continue both with probiotic and continued monitoring for any increased diarrhea/fever/abd pain or symptoms of C. difficile to need to repeat testing/return to ER if any worsened cellulitis either. Risks for FLQ discussed as well. Total Time Total Time Spent Total Time Spent (In Minutes): 40 Discharge Plan Discharge Items Patient Disposition: Home - Self-Care Reason For Visit: LLE CELLULITIS, FAILURE OF OUTPATIENT TREATMENT Discharge Diagnosis: LLE Cellulitis, failure of outpatient antibiotics Condition on Discharge: Fair Goals: You have been hospitalized for an acute medical problem. During your stay at [facility], we have made an effort to correct the problem that brought you to the hospital while keeping you as comfortable as possible. Medications were used to bring your condition under control and your discharge instructions will include directions for any medications you should take after leaving the hospital. Please make sure you see your Primary Care Provider as part of your follow up plan. Activity: Resume your previous activity Non-emergency contact: Primary Care Provider and Specialist Call non-emergency contact if: you have any medication questions, your symptoms worsen, your pain is not controlled and you have a fever Follow-up/Referrals: Adriana Salazar MD [Physician] - 12/05/23 1:40 pm Talita Das MD [Primary Care Provider] - Kandi Olivas CRNP [Nurse Practitioner] - 12/08/23 10:00 am (Hospital follow up appointment- will need to schedule establish care visit at this appointment) Diet: Heart Healthy Addtl Attending Provider Instructions: You have been hospitalized for left leg cellulitis. You were treated with IV antibiotics and orthopedics was consulted and did not feel any need for any aspiration. Imaging did not show any evidence for abscess or fluid collection. You are going to be continued on Clindamycin and Ciprofloxacin for antibiotics at discharge. You are also being continued on a probiotic, but as discussed please monitor for any increased diarrhea/abdominal pain/fever, and should be rechecked for cdiff which was checked and negative while in the hospital. We are covering for MRSA and pseudomonas given immunocompromised with your ulcerative colitis and treatment and should be covered with these broad spectrum antibiotics. You should continue to wear the compression while completing treatment as tolerated. Your imaging was NEGATIVE for any blood clot in this leg as well. You were also given IV iron for low stores and should follow up with your GI provider next week as already arranged for follow up imaging and colonoscopy and ongoing treatment. Your B12 and folate were also low and we have started supplementation and you should continue this at discharge. Lyme testing was negative and send out tick testing is still pending and can be followed up at discharge with PCP. Your blood cultures remain without growth at this time and you have remained without a fever. Please follow up with primary care in the next week to monitor your progress. Please return to the ER with any symptoms as discussed, chest pain, shortness of breath or for any other symptoms concerning for you. Pending Studies at Discharge: Yes Studies:: Blood cultures -- REMAIN NO GROWTH TO DATE Ehrlichiosis, babesiosis Stand-Alone Forms: My [facility], Smoking Cessation Medications and DC Order Prescriptions: New clindamycin HCl 150 mg Capsule 300 mg PO Q6 7 Days Qty: 56 0RF Advanced Probiotic 625 mg (10 billion cell) Capsule 1 cap PO DAILY Qty: 7 0RF cyanocobalamin (vitamin B-12) 500 mcg Tablet 1,000 mcg PO QAM Qty: 30 0RF folic acid 1 mg Tablet 1 mg PO QAM Qty: 30 0RF ciprofloxacin HCl 750 mg tablet 750 mg PO BID 7 Days Qty: 14 0RF Continued fluoxetine 40 mg capsule 40 mg PO DAILY levothyroxine [Synthroid] 175 mcg tablet 175 mcg PO QAM cetirizine [Zyrtec] 10 mg Tablet 10 mg PO DAILY amlodipine 2.5 mg tablet 2.5 mg PO DAILY budesonide 3 mg capsule,delayed,extend.release 9 mg PO QAM mesalamine 1.2 gram tablet,delayed release (DR/EC) 2.4 g PO DAILY fluticasone propionate [Flonase Allergy Relief] 50 mcg/actuation [place],Suspension 1 spray INTRANASAL DAILY PRN (Reason: Nasal Congestion) Rx Instructions: administer into each nostril Discontinued doxycycline hyclate 100 mg capsule 100 mg PO .DAILY FOR 10 DAYS Rx Instructions: started 11/24/23 Discharge Orders: Discharge Order (Routine); Ordered 12/01/23 Ordered By: Alysha Ruiz Admission Data Admit Date/Time: 11/27/23 23:52 Attending Provider: Michelle Roberts Admit Provider: Blake Sanderson Primary Care Provider: Talita Das Other Providers: Blake Sanderson; Paul Scott; Alysha Dejesus; Alisha Morales; Lonnie Holbrook; Adriana Salazar; Víctor Weiner; Sarah Hobbs; Rakesh Talamantes; Tee Allan; Esther Richardson; Tee Rodgers; Jonathan Hernandez Other Interventions: Discharge Summary Assessment (RN) Last Done: 12/01/23 14:07 Coding Level of Care Code 31782 INP/OBS DISCH >30 MIN Diagnoses Cellulitis of left lower extremity L03.116 Immunocompromised D84.9 Ulcerative colitis K51.90 Anemia D64.9 Anemia type: unspecified type Left knee pain M25.562 Failure of outpatient treatment Z78.9 Anxiety F41.9 Allergic rhinitis J30.9 Hypertension I10 Hypothyroidism E03.9 Iron deficiency anemia D50.9
[2023-12-01 14:10] VITALS: BP 137/76; PULSE 75
[2023-12-02 18:53] LABS: Babesia microti DNA Not Detected (Not Detected); Ehrlichia chaff IgG Ab <1:64 (<1:64); Ehrlichia chaff IgM Ab <1:20 (<1:20)
== END 2023-12-01 15:49 | disposition home or self-care (01) | DRG 603 ==
LOC: ED 19:23 → 3W 23:52 → SUATTDRO 23:52 → 3W 11-28 01:40
DX: Z79.899 Other long term (current) drug therapy; F41.9 Anxiety disorder, unspecified; E03.9 Hypothyroidism, unspecified; E87.6 Hypokalemia; E83.42 Hypomagnesemia; F32.A Depression, unspecified; I10 Essential (primary) hypertension; K51.90 Ulcerative colitis, unspecified, without complications; L03.116 Cellulitis of left lower limb; Z79.890 Hormone replacement therapy; D84.9 Immunodeficiency, unspecified; D50.9 Iron deficiency anemia, unspecified

== ENCOUNTER 2024-11-10 19:53 | Inpatient (IN) ==
--- OUTSIDE RECORDS SUMMARY | 2024-11-10 19:59 | External Medical Summary | Continuity of Care Document ---
Author Name Unknown Organization [address] Address [address] [place] [address] [id number] Care Team Providers Care Food Service Substitute Name Role Phone Talita Das Primary Care Physician [phone] Encounter [facility] [id number] Date(s): 09/09/24 - 09/09/[address] [address] [phone] Encounter Diagnosis Adrenal nodule(Discharge Diagnosis) - 09/09/24 Anxiety(Discharge Diagnosis) - 09/09/24 Borderline hyperlipidemia(Discharge Diagnosis) - 09/09/24 Depression(Discharge Diagnosis) - 09/09/24 Heart murmur(Discharge Diagnosis) - 09/09/24 Hypertension(Discharge Diagnosis) - 09/09/24 Hypothyroidism(Discharge Diagnosis) - 09/09/24 Rheumatoid arthritis(Discharge Diagnosis) - 09/09/24 Ulcerative colitis(Discharge Diagnosis) - 09/09/24 Discharge Disposition: Home or Self Care Attending Physician: DO Verde Allison B Referring Physician: DO Verde Allison B Encounter Type: Clinic Allergies, Adverse Reactions, Alerts Substance Criticality Severity Reaction Reaction Severity Status penicillins Rash Active sulfa drugs Rash Active wool rash and eczema Acti ve Cats upper resp symptoms Active Dogs Unable to assess criticality Mild Itching hives, upper resp problems Active Dust upper resp symptoms Active Grass Nasal congestion Act shai Mold upper resp symptoms Active Nickel Unable to assess criticality Moderate itching Rash Active Trees upper resp symptoms Active Latex rash Active Petroleum Jelly rash and the n eczema Active Allergy Not found in Search 1 eczema rash Active 1polyester Assessment and Plan Extracted from: Title:Office Visit Note Author:DO Verde Allis on B Date:09/09/24 1. Adrenal nodule Stable. Patient reports that she will continue to follow with endocrinology and will be due in January 2025. She is following with endocrinology at [facility]. 2. Anxiety Stable. Continue Prozac 40 mg daily. Patient does not need a refill of her Xanax. 3. Borderline hyperlipidemia Cholesterol panel in range. LDL mildly low. Follow-up with cardiology as scheduled. 4. Depression Stable. Continue Prozac 40 mg daily. Patient denies any suicidal homicidal ideations. 5. Heart murmur Patient reports that she had a follow-up with cardiology. Awaiting on full report. 6. Hypertension Controlled off of amlodipine. Continue to monitor symptoms. 7. Hypothyroidism Stable. Repeat TSH pending. Continue Synthroid. 8. Ulcerative colitis Continue to follow with [facility] gastroenterology. 9. Rheumatoid arthritis Continue to follow-up with rheumatology. Patient is looking to get injectable, Remicade, to treat room to arthritis and ulcerative colitis. Continue to monitor symptoms. Patient reports that she is awaiting on insurance to approve Remicade. She has a follow-up with [facility] in September. Return to the office in 3 months or sooner as needed. Return to the office sooner with any worsening signs or symptoms. Patient would like to repeat TSH in 3 months. She would like to hold off on other blood work as she is getting blood work from multiple specialist. Immunizations Given and Recorded Vaccine Date Status Refusal Reason influenza virus vaccine, inactivated 08/08/24 Marco rded influenza virus vaccine, inactivated 06/13/22 Give n influenza virus vaccine, inactivated 04/23/20 Give n influenza virus vaccine, inactivated 06/14/19 Give n influenza virus vaccine, inactivated 06/12/17 Give n SARS-CoV-2 (COVID-19) mRNA-vacc - [id number] 07/27/24 Recorded pneumococcal 20-valent conjugate vaccine 02/09/24 Given SARS-CoV-2 (COVID-19) mRNA BNT-162b2 vax 1 05/26/21 Recorded SARS-CoV-2 (COVID-19) mRNA BNT-162b2 vax 2 05/26/21 Recorded SARS-CoV-2 (COVID-19) mRNA BNT-162b2 vax 3 10/13/20 Recorded SARS-CoV-2 (COVID-19) mRNA BNT-162b2 vax 4 10/13/20 Recorded SARS-CoV-2 (COVID-19) mRNA BNT-162b2 vax 5 09/22/20 Recorded SARS-CoV-2 (COVID-19) mRNA BNT-162b2 vax 6 09/22/20 Recorded tetanus/diphtheria/pertuss, acel (Tdap) 7 01/13/16 Recorded tetanus toxoids-diphtheria, Td (Adult) 8 01/13/16 Recorded tetanus toxoids-diphtheria, Td (Adult) 9 01/13/16 Recorded 1Result Comment: 2021-08-12: Historical information-source unspecified 2Result Comment: 2021-08-12: Historical information-source unspecified 3Result Comment: 2021-08-12: Historical information-source unspecified 4Result Comment: 2021-08-12: Historical information-source unspecified 5Result Comment: 2021-08-12: Historical information-source unspecified 6Result Comment: 2021-08-12: Historical information-source unspecified 7Result Comment: Route: Unknown 8Result Comment: 2021-08-12: Historical information-source unspecified 9Result Comment: 2021-08-12: Historical information-source unspecified Medications Advanced probiotic Start: 12/08/23 11:47:00 AM EDT, Advanced probiotic Start Date: 12/08/23 Status: Ordered Repeat number: 1 Entyvio 300 mg intravenous injection Start: 01/26/24 9:19:00 AM EDT Start Date: 01/26/24 Status: Ordered Repeat number: 1 folic acid 1 mg oral tablet Start: 09/09/24 3:03:00 PM EST, 1 tab, PO, Daily, Disp# 30 tab, Refills: 6, Pharmacy: [id number] Start Date: 09/09/24 Status: Ordered Quantity: 30.0 Unit: tab Repeat number: 7 levalbuterol CFC free 45 mcg/inh inhalation aerosol Start: 07/07/23 11:31:00 AM EST, See Instructions, Disp# 15 g, Refills: 1, inhale 1 puff every 4 hours if needed for wheezing, Pharmacy: [facility] #[id number] Start Date: 07/07/23 Status: Ordered Quantity: 15.0 Unit: g Repeat number: 2 PROzac 40 mg oral capsule Start: 08/01/24 11:05:00 AM EST, 1 cap, PO, Daily Start Date: 08/01/24 Status: Ordered Repeat number: 1 Slow Fe (as elemental iron) 45 mg oral tablet, extended release Start: 12/08/23 11:49:00 AM EDT, Start Date: 12/08/23 Status: Ordered Repeat number: 1 Synthroid 175 mcg (0.175 mg) oral tablet Start: 09/09/24 3:03:00 PM EST, 1 tab, PO, Daily, Disp# 30 tab, Refills: 6, Brand Medically Necessary, Pharmacy: [id number] Start Date: 09/09/24 Status: Ordered Quantity: 30.0 Unit: tab Repeat number: 7 triamcinolone 0.1% topical lotion Start: 05/25/23 10:06:00 PM EDT, 1 appl, topical, bid, Disp# 60 mL, Refills: 1, To invovled rash BID PRN, Pharmacy: [facility] #[id number] Start Date: 05/25/23 Status: Ordered Quantity: 60.0 Unit: mL Repeat number: 2 Uceris 9 mg oral tablet, extended release Start: 01/26/24 9:17:00 AM EDT Start Date: 01/26/24 Status: Ordered Repeat number: 1 Vitamin B12 1000 mcg oral tablet Start: 12/08/23 11:45:00 AM EDT, 1 tab, PO, Daily Start Date: 12/08/23 Status: Ordered Repeat number: 1 Xanax 0.5 mg oral tablet Start: 07/16/24 1:34:00 PM EST, 1 tab, PO, bid, Disp# 10 tab, Refills: 0, PRN: as needed for anxiety, Pharmacy: [id number] Start Date: 07/16/24 Stop Date: 07/21/24 Status: Ordered Quantity: 10.0 Unit: tab Repeat number: 1 Mental Status 09/09/24 Barriers to Learning one year None evide nt Mandatory Health Literacy Documentation Yes Health Literacy Communication Barriers N ever Primary Language [place] Problem List Condition Confirmation Course Effective Dates Status H ealth Status Informant Acne rosacea Confirmed Active Allergic eczema Confirmed Active Adrenal nodule Confirmed Active Alopecia Confirmed Active Anxiety Confirmed Active Asthma Confirmed Active Chronic headache Confirmed Active B12 deficiency Confirmed Active Colonic polyp Confirmed Active Depression Confirmed Active Eczema Confirmed Active Heart murmur Confirmed Active History of COVID-19 Confirmed Active Borderline hyperlipidemia Confirmed Active Hypertension Confirmed Active Low gammaglobulin level Confirmed Active Hypothyroidism Confirmed Active Insomnia Confirmed Active Iron deficiency Confirmed Active Lipoma of ileocecal valve Confirmed Active Headache, migraine Confirmed Active Abnormal MRI Confirmed Active Body mass index [BMI] 38.0-38.9, adult Confirmed Active Right knee pain Confirmed Active Rheumatoid arthritis Confirmed Active Seasonal allergies Confirmed Active Thrombocytosis Confirmed Active Typhlitis Confirmed Active Ulcerative colitis Confirmed Active Weight loss Confirmed Active Diagnosis Diagnosis Type Effective Dates Health Status Clinical Service Informant Adrenal nodule Discharge Diagnosis 09/09/24 Non-Specified Anxiety Discharge Diagnosis 09/09/24 Non-Specified Borderline hyperlipidemia Discharge Diagnosis 09/09/24 Non-Specified Heart murmur Discharge Diagnosis 09/09/24 Non-Specified Hypertension Discharge Diagnosis 09/09/24 Non-Specified Hypothyroidism Discharge Diagnosis 09/09/24 Non-Specified Rheumatoid arthritis Discharge Diagnosis 09/09/24 Non-Specified Depression Discharge Diagnosis 09/09/24 Non-Specified Ulcerative colitis Discharge Diagnosis 09/09/24 Non-Specified Procedures Procedure Date Related Diagnosis Body Site Status Colonoscopy 1, 2, 3 02/01/23 Compl eted Mammogram 4 02/01/22 Completed Mammogram 5 06/26/[address] of orbits 6 05/19/17 Completed Colonoscopy 7 01/28/17 Completed colonoscopy 8 01/28/17 Completed gallbladder removed 12/23/12 Compl eted Abdominal hysterectomy 9 Completed Cholecystectomy 10 Comple lisandro EXPLR/DECOMPRESS EYE SOCKET Completed H/O: hysterectomy 11 Comp leted [address] [place] [address] Impression: 1. The examined portion of the [...] to oldest [Reference Range]: 1 Patient Weight 107.7 kg (09/09/24 3:02 PM) Heart Rate 87 bpm (09/09/24 3:02 PM) Respiratory Rate 18 br/min (09/09/24 3:02 PM) Blood Pressure 122/74mmHg (09/09/24 3:02 PM) Social History Social History Type Response Smoking Status Never smoked cigaret lucía Sex Sex Representation Female (finding) FCM Outpt Note * DO Verde Allison B: PERFORM Event Display: FCM Outpt Note Authored Date: Chief Complaint Increase in Prozac doing well. Denies other concerns. History of Present Illness Patient is a 53 year old female that presents to the office for a routine follow up. She was last in the office in July. Recently lost her son unexpectedly in June. She increased her Prozac at that time to 40 mg daily. She has Xanax to use as needed. She is still waiting on the autopsy. She reports that her medication has been stable. She denies any suicidalhomicidal ideations. She also reports that she discontinued her amlodipine secondary to hypotension at her last visit. She reports that her blood pressures been stable. She denies any symptoms. Last blood work in March was stable. TSH was in range. Cholesterol controlled. She recently been treated with IV antibiotics for persistent cellulitis over the summer of 2023. She did follow-up with orthopedics and has been wearing compression stockings as needed. Her symptoms have resolved. She was found to be iron deficient and was started on IV Venofer x 3 doses while admitted to the hospital. She was referred to hematology and saw hematology at [facility]. She did establish with a local game and fish protector and will be getting further iron infusions. She has been following with [facility] for ulcerative colitis. She was recently started on long-acting budesonide and Entyvio. She is to follow-up with vaccinations and is due for herTwinrix and shingles. She cannot have an injection within 2 weeks of her infusion. She is planning on getting her next vaccine and she wishes to discuss with gastroenterology. She had normal mammogram in September 2023and will be due this September.. She up-to-date with gynecology. She has an appointment with endocrinology at [facility] February 19 to discuss adrenal nodule found on a CAT scan. She reports that she underwent additional testing which was negative. She has blood work pending. She has a dexamethasone suppression test pending. She had previously been following with endocrinology for Graves' disease. She reports that she was given the option to have this surgically removed, but patient declined. She will have follow up testing monitor by Endocrinology. She reports that she has a follow-up appointment in 1 year in January 2025 Follow-up with dermatology pending. She had seen orthopedics for right ankle pain over the summer and could put in into a walking boot. She discontinued the boot prior to school the end of February. She reports that her symptoms have resolved. She underwent an echo in June that had demonstrated mildly dilated left ventricular goal for BSA. Low normal systolic function. Mild left ventricular hypertrophy. She had elevated left ventricular end-diastolic pressure and grade 2 diastolic dysfunction. She was referred to cardiology and had a visit in July. She had blood work and is waiting on results. She was referred to rheumatology by orthopedics for hand swelling that occurred in June. Rheumatology suspects that she has an underlying autoimmune disease. She reports that she recently had blood work at [facility]. The plan is to start a new injectable. Patient currently quit her job to focus on her health. Patient reports that she had follow-up with neurology and was told that everything was stable. Review of Systems Constitutional: No fever, No chills, No fatigue._ Respiratory: No shortness of breath, No cough, No wheezing. _ Cardiovascular: no lightheadedness/presyncope, No chest pain, No palpitations._ Gastrointestinal: No nausea, No vomiting, No diarrhea, No constipation, No heartburn, No abdominal pain._ Musculoskeletal: No back pain, No neck pain, No joint pain, No muscle pain, No decreased range ofmotion, No trauma._ Skin: No rash, No pruritus, No breakdown._ Neurologic: No abnormal balance, No numbness, No tingling, No headache._ Physical Exam Vitals & Measurements HR: 87 (Monitored) RR: 18 BP: 122/74 SpO2: 98% WT: 107.700 kg (Dosing) WT: 107.7 kg PHQ2 Data (Data Documented on:09/09/2024 15:02) Emotional health assessment NEGATIVE General: _Alert and oriented, No acute distress HEENT: _ Normocephalic, TM clear, Nl gross hearing, moist oral mucosa _ Cardiovascular: _Normal rate, Regular rhythm, No murmur, No gallop. Respiratory: _Lungs are clear to auscultation, Respirations are non-labored, Breath sounds are equal Gastrointestinal: _Soft, Non-tender, Non-distended, Normal bowel sounds. Musculoskeletal: _Normal range of motion, normal strength. Neurologic: Normal sensory, Normal motor function, CN II-XII grossly intact. Integumentary: _Warm, Dry, [place]. Psych: Mood-affect congruence. Reports no SI/HI. Speech is of normal pace and content Assessment/Plan 1. Adrenal nodule Stable. Patient reports that she will continue to follow with endocrinology and will be due in January 2025. She is following with endocrinology at [facility]. 2. Anxiety Stable. Continue Prozac 40 mg daily. Patient does not need a refill of her Xanax. 3. Borderline hyperlipidemia Cholesterol panel in range. LDL mildly low. Follow-up with cardiology as scheduled. 4. Depression Stable. Continue Prozac 40 mg daily. Patient denies any suicidal homicidal ideations. 5. Heart murmur Patient reports that she had a follow-up with cardiology. Awaiting on full report. 6. Hypertension Controlled off of amlodipine. Continue to monitor symptoms. 7. Hypothyroidism Stable. Repeat TSH pending. Continue Synthroid. 8. Ulcerative colitis Continue to follow with [facility] gastroenterology. 9. Rheumatoid arthritis Continue to follow-up with rheumatology. Patient is looking to get injectable, Remicade, to treat room to arthritis and ulcerative colitis. Continue to monitor symptoms. Patient reports that she is awaiting on insurance to approve Remicade. [facility] Return to the office in 3 months or sooner as needed. Return to the office sooner with any worsening signs or symptoms. Patient would like to repeat TSH in 3 months. She would like to hold off on other blood work as she is getting blood work from multiple specialist. Problem List/Past Medical History Ongoing Abnormal MRI Acne rosacea Adrenal nodule Allergic eczema Alopecia Anxiety Asthma B12 deficiency Body mass index [BMI] 38.0-38.9, adult Borderline hyperlipidemia Chronic headache Colonic polyp Depression Eczema Headache, migraine Heart murmur History of COVID-19 Hypertension Hypothyroidism Insomnia Iron deficiency Lipoma of ileocecal valve Low gammaglobulin level Rheumatoid arthritis Right knee pain Seasonal allergies Thrombocytosis Typhlitis Ulcerative colitis Weight loss Resolved Diverticulitis Procedure/Surgical History •Colonoscopy| Service Date: 02/01/2023•Mammogram| Service Date: 02/01/2022•Mammogram| ServiceDate: 06/26/2019•CT of orbits| Service Date: 05/19/2017•Colonoscopy| Service Date: 01/28/2017•colonoscopy| Service Date: 01/28/2017•gallbladder removed| Service Date: 12/23/2012•H/O: hystere ctomy•Cholecystectomy•Abdominal hysterectomy•EXPLR/DECOMPRESS EYE SOCKET Medications ALPRAZolam(Xanax 0.5 mg oral tablet), 0.5 mg= 1 tab, PO, bid, PRN budesonide(Uceris 9 mg oral tablet, extended release) cyanocobalamin(Vitamin B12 1000 mcg oral tablet), 1000 mcg= 1 tab, PO, Daily ferrous sulfate(Slow Fe (as elemental iron) 45 mg oral tablet, extended release) FLUoxetine(PROzac 40 mg oral capsule), 40 mg= 1 cap, PO, Daily folic acid(folic acid 1 mg oral tablet), 1 tab, PO, Daily, 6 refills levalbuterol(levalbuterol CFC free 45 mcg/inh inhalation aerosol), See Instructions, 1 refills levothyroxine(Synthroid 175 mcg (0.175 mg) oral tablet), 1 tab, PO, Daily, 6 refills triamcinolone topical(triamcinolone 0.1% topical lotion), 1 appl, topical, bid, 1 refills unknown medication(Advanced probiotic) vedolizumab(Entyvio 300 mg intravenous injection) Allergies Nickel (Moderate) itching, Rash Dogs (Mild) Itching, hives, upper resp problems Allergy Not found in Search eczema, rash Cats upper resp symptoms Dust upper resp symptoms Grass Nasal congestion Latex rash Mold upper resp symptoms Petroleum Jelly rash and then eczema Trees upper resp symptoms penicillins Rash sulfa drugs Rash wool rash and eczema Social History Smoking Status Never smoked cigarettes Alcohol Frequency:1-2 times per year Exercise Duration (average number of minutes):45 Times per week:1-2 times/week Exercise type:Walking Tobacco Use:Never smoker Intake (IView) Smoking History Cigarette smoker: Never smoked cigarettes Tobacco Product Use: Never used other tobacco products SHX E-Cigarette Use: Never Family History Cancer of colon: Mother. Heart attack: MGF. Hypertension: Mother and MGM. Melanoma in situ of skin: Father. Stroke: MGM. Health Status Family Member(s) Immunizations Vaccine Date Status influenza virus vaccine, inactivated 08/08/2024 Recorded SARS-CoV-2 (COVID-19) mRNA-vacc - [id number] 07/27/2024 Recorded pneumococcal 20-valent conjugate vaccine 02/09/2024 Given influenza virus vaccine, inactivated 06/13/2022 Given SARS-CoV-2 [...] Given influenza virus vaccine, inactivated 06/12/2017 Given tetanus/diphtheria/pertuss, acel (Tdap) 01/13/2016 Recorded Comments : Route: Unknown tetanus toxoids-diphtheria, Td (Adult) 01/13/2016 Recorded Comments : 2021-08-12: Historical information-source unspecified tetanus toxoids-diphtheria, Td (Adult) 01/13/2016 Recorded Comments : 2021-08-12: Historical information-source unspecified Recommendations Health Maintenance Pending (in the next year) Due Adult COVID-19 Vaccination due 09/11/24 Unknown Frequency Adult Social Determinants of Health Screening due 09/11/24 Unknown Frequency Shingles Vaccine due 09/11/24 One-time only Due In Future Adult Influenza Vaccine not due until 01/28/25 and every 1 year Body Mass Index not due until 09/10/25 and every 366 day Satisfied (in the past 1 year) Satisfied Adult COVID-19 Vaccination on 07/27/24. Satisfied by DAREK Tenorio Natalie Adult Influenza Vaccine on 08/08/24. Satisfied by DO Verde Allison B Body Mass Index on 04/29/24. Satisfied by DAREK Marroquin Kirsten Depression Follow Up Plan on 08/01/24. Satisfied by DAREK Tenorio Natalie Pneumococcal Vaccine Adults and Adolescents with Chronic Illness on 02/09/24. Satisfied by DAREK De La Paz Sharon Electronic Signature on File Electronically Reviewed/Signed by: Laura Verde DO Author Signature Dt/Tm:09/11/2024 05:10 PM Department of Family Medicine [facility] Patient Care team information Care Team Personnel Name: MD Das Amy L Position: Physician - Family Med Member Role: Primary Care Provider Address: [address] [place] [address] Telecom: [phone] Care Team Related Persons Name: NEDA TUCKER Name: RYAN JAMESON Name: RYAN JAMESON Name: RITA JAMESON Insurance Providers Guarantor name: AJ Hardin [facility] Health Plan Information #: 2 Payer: [employer] PCP ONLY Member Number: [id number] Policy Number: NA Group Number: NA Health Plan Information #: 1 Payer: [facility] Member Number: [id number] Policy Number: NA Group Number: [id number]
--- NOTE | 2024-11-10 20:15 | Emergency Department Note ---
Impression & Plan Syncope and collapse, Rectal bleeding, History of chronic ulcerative colitis ED Provider Note NAME: AJ JAMESON AGE: 53 SEX: Female INFORMANT: Patient ED PROVIDER(S): Osmani Arcos MD CHIEF COMPLAINT: Syncope PLAN: Disposition: Admitted Outpatient prescription management: none Referral: None MEDICAL DECISION MAKING: Patient presented because of syncope. Her history is concerning due to her ulcerative colitis and bleeding. Patient had an i-STAT performed. She did have a moderate anemia noted. Actual blood work revealed a slight leukocytosis and anemia with hemoglobin of 7.9. Outpatient labs on 10/28 revealed hemoglobin of 9.1. Patient was gently hydrated. ECG showed nonspecific ST changes but no acute ST elevation. No dysrhythmia on monitoring. Patient did have a slight leukocytosis but no infectious complaints. She had a benign abdominal examination. Chest x-ray was unremarkable. Urinalysis did seem dirty but she had no urinary symptoms. Patient, and I discussed further management in the hospital. Patient is currently hemodynamically stable. I did type and cross her for 2 units in case she has a worsening bleeding issue. Patient is asking to try and avoid transfusion if at all possible. Consultation was made with Dr. Weiner of the [facility] service. Patient was evaluated in the ER for further management. Care/management discussed with: field human resources manager Level of care consideration(s): After review of the information above and other included data, I feel the patient requires escalation of care to admission Triage Nursing notes: reviewed and agree them. Vital Signs: reviewed and remarkable for tachycardia Additional History obtained from: none Chronic Medical/Social Conditions affecting care: Ulcerative colitis Prior/ Outside/ External records reviewed: None Differential Diagnosis: Symptomatic anemia, GI bleed, exacerbation of ulcerative colitis, Vasovagal event, dehydration, infection, hypoglycemia, electrolyte abnormalities, cardiac sources, intracerebral event, pulmonary embolism, seizure, toxicologic, neurologic, as well as other pathologies. Diagnostics, independently interpreted by me: ECG: Twelve-lead ECG reveals a normal sinus rhythm with poor progression at [address] No [address] elevation. Cardiac Monitoring: Cardiac monitoring ordered by me: The patient was placed on continuous cardiac monitoring and observed. It revealed a normal sinus rhythm at 96 beats per minute without ectopy or evidence of dysrhythmia. Medical decision rules: none Imaging studies: Chest x-ray. Findings: A chest x-ray was performed and revealed no pneumothorax, effusion, infiltrate, pulmonary edema, free air under the diaphragm, or wide mediastinum. Impression: No acute disease. HPI: 53 year old Female arrives for evaluation of syncope. This occurred just prior to arrival. Patient notes she has a long history of ulcerative colitis. He is followed by the [facility]. Primary care is Caryn. Patient is 2 weeks ago she started to have a flareup with increased diarrhea. About a week ago she started having rectal bleeding. She notes being chronically anemic. Patient was in the shower and had dizziness and a brief syncopal episode. was present. No trauma sustained. The patient noted vomiting after the episode. Nausea and vomiting resolved. Patient notes chronic abdominal discomfort from the ulcerative colitis. Pain is rated a 6 out of 10. Patient denies any new or different GI symptoms. Pt denies headache, fevers, chills, diaphoresis, visual changes, neck pain, chest pain, breathing difficulties, back pain, melena, urinary symptoms, numbness, weakness, lymphadenopathy, rash, or other complaints. PAST MEDICAL HISTORY: See Below, ulcerative colitis PAST SURGICAL HISTORY: See Below, SOCIAL HISTORY: See Below, HOME MEDICATIONS: See Below ALLERGIES: See Below VITALS: See Below PHYSICAL EXAMINATION: GENERAL: Awake, alert, well-appearing, in no distress HENT: Normocephalic, atraumatic. Oropharynx unremarkable. EYES: Pale conjunctiva. Sclera non-icteric. NECK: Inspection normal. Non-tender. Supple. No nuchal rigidity. FROM. No masses. RESPIRATORY: Clear to auscultation. No wheezes. No rales. Normal respiratory effort. CARDIAC: Tachycardic rate. Normal rhythm. No murmurs. No rubs. Extremities warm and well perfused. Pulses equal. No JVD. GI: Soft, non-distended. No tenderness to palpation. No rebound or guarding. No masses. RECTAL: Deferred. MUSCULOSKELETAL: Atraumatic. Chest examination reveals no tenderness. The back is symmetrical on inspection without obvious abnormality. There is no CVA tenderness to palpation. No joint edema. LOWER EXTREMITIES: Calves are equal size bilaterally and non-tender. No edema. No discoloration. NEURO: Normal sensorium. No sensory or motor deficits noted. SKIN: No rash or jaundice noted. PROCEDURES: none CRITICAL CARE: none OBSERVATION NOTE: none Past Med/Surg History Problem List (Updated 11/10/24 @ 20:15 by Osmani Arcos MD) History of chronic ulcerative colitis (Acute) Rectal bleeding (Acute) Syncope and collapse (Acute) Numbness and tingling in both hands Bilateral hand pain Arthralgia Iron deficiency anemia Left knee pain Cellulitis of left lower extremity Failure of outpatient treatment (Acute) Immunocompromised (Acute) Anemia (Acute) Leukocytosis (Acute) Cellulitis (Acute) Left leg pain (Acute) Hemorrhoids Ulcerative colitis Vaginal enterocele Encounter for routine gynecological examination Eczema Anxiety Rosacea Encounter for pre-operative examination Anxiety (Chronic) Allergic rhinitis Ankle sprain Encounter for annual routine gynecological examination Dysfunction of eustachian tube Hypothyroidism Hypertension Eczema Allergic conjunctivitis Medical History (Updated 11/10/24 @ 20:15 by Osmani Arcos MD) Submucous leiomyoma of uterus Blood in stool reason for up coming colonoscopy History of COVID-19 x2, most recent Jul 2021 > not hospitalized Anxiety also gets very anxious about medical procedures Asthma does not use res inh > well controlled per pt Abnormal uterine bleeding (AUB) Fibroid, uterine resolved Enterocele Surgical History Hx of breast biopsy benign Hx of eye surgery bilat for thyroid eye issues History of tooth extraction Hx of colonoscopy History of ERCP 2012 Hx of cholecystectomy 2012 H/O: hysterectomy 2014 Family History (Updated 09/18/23 @ 15:12 by Maria Fernanda Bass, RAY) Mother Colorectal cancer Hypertension Environmental allergies Asthma Grandmother (Maternal) Stroke Father Skin cancer Environmental allergies Grandfather (Maternal) Myocardial infarction Other No family history of adverse response to anesthesia No family history of bleeding disorder Denies family history of Ovarian cancer Prostate cancer Breast cancer Social History Smoking Status: Never smoker Second Hand Exposure: No; Do You Dip or Chew Tobacco: No; Hx Alcohol Use: No Hx Substance Use: No Preferred Language: Malian Communication Ability: Effective Financial Management Analyst Required: No Beliefs That Will Affect Care: None marital status: Current Living Situation: Spouse and Family Current Living Situation Comment: lives with and 2 adult children in 2 story home current occupational status: employed current occupation: Teacher Feels Safe at Home: Yes Assistive Devices: None Allergies Allergies Allergy/AdvReac Type Severity Reaction Status Date / Time latex Allergy Intermediate Hives Verified 07/08/24 14:16 Penicillins Allergy Intermediate HIVES Verified 07/08/24 14:16 Sulfa (Sulfonamide Allergy Intermediate hives Verified 07/08/24 14:16 Antibiotics) petrolatum, yellow Allergy Unknown RASH, Verified 07/08/24 14:16 ITCHING nickel Allergy Itching Verified 07/08/24 14:16 Home Meds Home Medications Medication Instructions Recorded Confirmed cetirizine 10 mg tablet (Zyrtec) 10 mg PO DAILY 11/27/23 11/10/24 fluoxetine 40 mg capsule 40 mg PO DAILY 11/27/23 11/10/24 fluticasone propionate 50 1 spray intranasal DAILY PRN Nasal 11/27/23 11/10/24 mcg/actuation nasal Congestion spray,suspension (Flonase Allergy Relief) levothyroxine 175 mcg tablet 175 mcg PO QAM 11/27/23 11/10/24 (Synthroid) acetaminophen 650 mg 650 mg PO Q12H 07/08/24 11/10/24 tablet,extended release (Tylenol 8 Hour) budesonide 9 mg tablet,delayed and 9 mg PO DAILY 07/08/24 11/10/24 extended release (Uceris) infliximab 100 mg intravenous 100 mg IV DIRECTED 11/10/24 11/10/24 solution (Remicade) iron 50 mg iron tablet 50 tab PO QAM 11/10/24 11/10/24 Previous Rx's Medication Instructions Recorded cyanocobalamin (vitamin B-12) 500 1,000 mcg (2 x 500 mcg) PO QAM #30 12/01/23 mcg tablet tabs folic acid 1 mg tablet 1 mg PO QAM #30 tabs 12/01/23 Results & Data (ED) Vital Signs Vital Signs - 24 hr 11/10/24 19:56 11/10/24 20:09 11/10/24 20:19 Temperature 36.7 C Temperature Source Temporal Artery Scan Pulse Rate 110 H 96 H Pulse Rate [Apical] 95 H Pulse Rhythm Pulse Rhythm [Apical] Regular Pulse Strength [Apical] Normal Respiratory Rate 16 Respiratory Effort / Characteristics Non-Labored Spontaneous Non-Labored Spontaneous Respiratory Depth Normal Normal Respiratory Pattern Regular Blood Pressure 114/77 Blood Pressure Mean 89 Blood Pressure Position Sitting Pulse Oximetry 98 Oxygen Delivery Method Room Air Sepsis Recent Fever Within 48 Hours No Sepsis New/Unexplained Change in Mental Status No Sepsis Action Taken by Nursing No Action Required 11/10/24 22:00 11/10/24 22:17 Temperature Temperature Source Pulse Rate 96 H Pulse Rate [Apical] 94 H Pulse Rhythm Regular Pulse Rhythm [Apical] Regular Pulse Strength [Apical] Normal Respiratory Rate 20 16 Respiratory Effort / Characteristics Non-Labored Spontaneous Respiratory Depth Normal Respiratory Pattern Regular Blood Pressure Blood Pressure Mean Blood Pressure Position Pulse Oximetry 98 95 Oxygen Delivery Method Room Air Room Air Sepsis Recent Fever Within 48 Hours Sepsis New/Unexplained Change in Mental Status Sepsis Action Taken by Nursing Laboratory Data 11/10/24 20:17 11/10/24 20:17 Lab Results 11/10/24 11/10/24 11/10/24 Range/Units 20:17 20:23 21:18 WBC 11.79 H (4.8-10.8) K/ul RBC 3.11 L (4.20-5.40) M/uL Hgb 7.9 L (12.0-16.0) g/dl POC Hgb 8.8 L (12.0-16.0) g/dl Hct 25.9 L (37.0-47.0) % POC Hct 26 L (37-47) % MCV 83.3 (80.0-100.0) fL MCH 25.4 (25.0-34.0) pg MCHC 30.5 L (32.0-36.0) g/dL RDW Std Deviation 56.3 H (36.4-46.3) fL RDW Coeff of [place]ph[place] 18.4 H (11.5-14.5) % Plt Count 491 H (130-400) K/uL MPV 8.1 L (9.4-12.4) fL Immature Gran % (Auto) 1.2 % Neut % (Auto) 75.8 % Lymph % (Auto) 15.9 % [place] % (Auto) 6.0 % Eos % (Auto) 0.8 % Baso % (Auto) 0.3 % Neut # (Auto) 8.93 H (1.40-6.50) K/uL Lymph # (Auto) 1.88 (1.20-3.40) K/uL [place] # (Auto) 0.71 H (0.11-0.59) K/uL Eos # (Auto) 0.10 (0.00-0.50) K/uL Baso # (Auto) 0.03 (0.00-0.20) K/uL Immature Gran # (Auto) 0.14 (0.01-0.20) K/uL Absolute Nucleated RBC 0.05 (0.00-0.12) K/uL Nucleated RBC % (auto) 0.4 % Dohle Bodies 1+ Polychromasia 1+ PT 11.4 (9.0-12.0) Seconds INR 1.1 (0.9-1.1) APTT 24 (21-31) Seconds PTT Ratio 0.9 POC Sodium 135 (135-144) mmol/L Sodium 134 L (136-145) mmol/L POC Potassium 3.5 (3.3-5.0) mmol/L Potassium 3.6 (3.5-5.1) mmol/L POC Chloride 98 L (101-112) mmol/L Chloride 100 (98-107) mmol/L Carbon Dioxide 28 (21-32) mmol/L POC Total CO2 25 (24-31) mmol/L Anion Gap 6 (3-11) POC Anion Gap 18.0 (16-25) mmol/L POC BUN 14 (7-18) mg/dl BUN 15 (6-23) mg/dl Creatinine 1.52 H (0.6-1.2) mg/dl POC Creatinine 1.8 H (0.6-1.3) mg/dl Est Cr Clr Drug Dosing Not Reportable eGFR 40.25 BUN/Creatinine Ratio 9.9 L (10-20) Glucose 116 H (70-99(Fasting)) mg/dl POC Glucose (other) 118 H (70-99) mg/dl Calcium 8.3 L (8.6-10.3) mg/dl POC Ioniz Calcium [place] 1.12 (1.12-1.32) mmol/l Total Bilirubin 0.2 (0.2-1.0) mg/dl AST 8 L (13-39) U/L ALT 4 L (7-52) U/L Alkaline Phosphatase 48 (34-104) U/L Troponin I High Sens 6.6 (0-14) pg/ml Total Protein 6.4 (6.0-8.3) gm/dl Albumin 2.8 L (3.4-5.0) gm/dl Globulin 3.6 (2.5-4.0) gm/dl Albumin/Globulin Ratio 0.8 L (0.9-2) Urine Color Yellow Urine Appearance Cloudy A (Clear) Urine pH 6.0 (4.5-7.5) Ur Specific [place] 1.022 (1.000-1.030) Urine Protein 1+ H (Negative) Urine Glucose (UA) Negative (Negative) Urine Ketones Trace H (Negative) Urine Blood Negative (Negative) Urine Nitrite Negative (Negative) Urine Bilirubin Negative (Negative) Urine Urobilinogen Negative (Negative) Ur Leukocyte Esterase Negative (Negative) Urine WBC (Auto) 0-5 (0-5) /hpf Urine RBC (Auto) 0-2 (0-2) /hpf U Hyaline Cast (Auto) >20 H (0-2) /lpf U Epithel Cells (Auto) 6-10 H (0-2) /hpf Urine Bacteria (Auto) 3+ H (None Seen) Hyaline Casts Present A (None Presnt) /lpf Urine Mucus Present A (None Prsent) Blood Type B Positive Blood Type Recheck Antibody Screen NEGATIVE Crossmatch See Detail 11/10/24 Range/Units 21:31 WBC (4.8-10.8) K/ul RBC (4.20-5.40) M/uL Hgb (12.0-16.0) g/dl POC Hgb (12.0-16.0) g/dl Hct (37.0-47.0) % POC Hct (37-47) % MCV (80.0-100.0) fL MCH (25.0-34.0) pg MCHC (32.0-36.0) g/dL RDW Std Deviation (36.4-46.3) fL RDW Coeff of Alphonse (11.5-14.5) % Plt Count (130-400) K/uL MPV (9.4-12.4) fL Immature Gran % (Auto) % Neut % (Auto) % Lymph % (Auto) % [place] % (Auto) % Eos % (Auto) % Baso % (Auto) % Neut # (Auto) (1.40-6.50) K/uL Lymph # (Auto) (1.20-3.40) K/uL [place] # (Auto) (0.11-0.59) K/uL Eos # (Auto) (0.00-0.50) K/uL Baso # (Auto) (0.00-0.20) K/uL Immature Gran # (Auto) (0.01-0.20) K/uL Absolute Nucleated RBC (0.00-0.12) K/uL Nucleated RBC % (auto) % Dohle Bodies Polychromasia PT (9.0-12.0) Seconds INR (0.9-1.1) APTT (21-31) Seconds PTT Ratio POC Sodium (135-144) mmol/L Sodium (136-145) mmol/L POC Potassium (3.3-5.0) mmol/L Potassium (3.5-5.1) mmol/L POC Chloride (101-112) mmol/L Chloride (98-107) mmol/L Carbon Dioxide (21-32) mmol/L POC Total CO2 (24-31) mmol/L Anion Gap (3-11) POC Anion Gap (16-25) mmol/L POC BUN (7-18) mg/dl BUN (6-23) mg/dl Creatinine (0.6-1.2) mg/dl POC Creatinine (0.6-1.3) mg/dl Est Cr Clr Drug Dosing eGFR BUN/Creatinine Ratio (10-20) Glucose (70-99(Fasting)) mg/dl POC Glucose (other) (70-99) mg/dl Calcium (8.6-10.3) mg/dl POC Ioniz Calcium [place] (1.12-1.32) mmol/l Total Bilirubin (0.2-1.0) mg/dl AST (13-39) U/L ALT (7-52) U/L Alkaline Phosphatase (34-104) U/L Troponin I High Sens (0-14) pg/ml Total Protein (6.0-8.3) gm/dl Albumin (3.4-5.0) gm/dl Globulin (2.5-4.0) gm/dl Albumin/Globulin Ratio (0.9-2) Urine Color Urine Appearance (Clear) Urine pH (4.5-7.5) Ur Specific [place] (1.000-1.030) Urine Protein (Negative) Urine Glucose (UA) (Negative) Urine Ketones (Negative) Urine Blood (Negative) Urine Nitrite (Negative) Urine Bilirubin (Negative) Urine Urobilinogen (Negative) Ur Leukocyte Esterase (Negative) Urine WBC (Auto) (0-5) /hpf Urine RBC (Auto) (0-2) /hpf U Hyaline Cast (Auto) (0-2) /lpf U Epithel Cells (Auto) (0-2) /hpf Urine Bacteria (Auto) (None Seen) Hyaline Casts (None Presnt) /lpf Urine Mucus (None Prsent) Blood Type Blood Type Recheck B Positive Antibody Screen Crossmatch Administered Medications Sodium Chloride (Nss) 1,000 mls @ 125 mls/hr IV .Q8H ALL Stop: 11/11/24 19:59 Last Admin: 11/10/24 20:57 Dose: 125 mls/hr Documented By: LEANDRA Discontinued Medications Sodium Chloride (Nss) 500 mls @ 999 mls/hr IV .Q31M ONE Stop: 11/10/24 20:30 Last Infusion: 11/10/24 20:55 Dose: Infused Documented By: Admin: 11/10/24 20:18 Dose: 999 mls/hr Documented By: LEANDRA Imaging Data Radiologist's Impression: Chest X-Ray 11/10/24 21:52 Exam(s): XR CXR 1 VIEW EXAM: XR Chest, 1 View CLINICAL HISTORY: Reason for exam: syncope. TECHNIQUE: Frontal view of the chest. COMPARISON: No relevant prior studies available. FINDINGS: Lungs: Unremarkable. No acute infiltration, atelectasis or mass. Pleural space: Unremarkable. No pneumothorax or pleural fluid. Heart: Unremarkable. No cardiomegaly. Mediastinum: Unremarkable. Normal mediastinal contour. Bones/joints: No acute findings. IMPRESSION: No acute findings in the chest. Electronically signed by: Edwin Rivera MD 11/10/24 23:03 PM Discharge Plan Visit Data Chief Complaint: Syncope (Near Syncope) Stated Complaint: LOW BLOOD IRON LEVELS ED Provider: Osmani Arcos Discharge Problem: Syncope and collapse, Rectal bleeding, History of chronic ulcerative colitis Forms Stand Alone Forms: My [facility] Fluoresentric Prescriptions Prescriptions: No Action acetaminophen [Tylenol 8 Hour] 650 mg tablet extended release 650 mg PO Q12H budesonide [Uceris] 9 mg tablet,delayed and ext.release 9 mg PO DAILY fluoxetine 40 mg capsule 40 mg PO DAILY levothyroxine [Synthroid] 175 mcg tablet 175 mcg PO QAM cetirizine [Zyrtec] 10 mg Tablet 10 mg PO DAILY fluticasone propionate [Flonase Allergy Relief] 50 mcg/actuation [place],Suspension 1 spray INTRANASAL DAILY PRN (Reason: Nasal Congestion) Rx Instructions: administer into each nostril cyanocobalamin (vitamin B-12) 500 mcg Tablet 1,000 mcg PO QAM Qty: 30 0RF folic acid 1 mg Tablet 1 mg PO QAM Qty: 30 0RF iron 50 mg iron Tablet 50 tab PO QAM infliximab [Remicade] 100 mg Recon Soln 100 mg IV DIRECTED Rx Instructions: EVERY 8 WEEKS AFTER LOAD Referrals Referrals: Laura Verde, [Primary Care Provider] -
[2024-11-10] MEDS: SODIUM CHLORIDE 0.9% 500 ML IV ONE (20:18)
[2024-11-10 20:27] LABS: Hematocrit (blood only) 25.9 % (37.0-47.0); Hemoglobin 7.9 g/dl (12.0-16.0); Mean Corpuscular Hemoglobin 25.4 pg (25.0-34.0); Mean Corpuscular Hgb Conc 30.5 g/dL (32.0-36.0); Mean Corpuscular Volume 83.3 fL (80.0-100.0); Mean Platelet Volume 8.1 fL (9.4-12.4); Nucleated RBC # (auto) 0.05 K/uL (0.00-0.12); Nucleated RBC % (auto) 0.4 %; Platelet Count 491 K/uL (130-400); RDW Coefficient of Variation 18.4 % (11.5-14.5); RDW Standard Deviation 56.3 fL (36.4-46.3); Red Blood Count 3.11 M/uL (4.20-5.40); White Blood Count 11.79 K/ul (4.8-10.8)
[2024-11-10 20:36] LABS: iSTAT Creatinine 1.8 mg/dl (0.6-1.3); iSTAT Hemoglobin 8.8 g/dl (12.0-16.0); iSTAT Ionized Calcium 1.12 mmol/l (1.12-1.32); iSTAT Potassium 3.5 mmol/L (3.3-5.0)
[2024-11-10 20:45] LABS: Basophils # (auto) 0.03 K/uL (0.00-0.20); Basophils % (auto) 0.3 %; Dohle Bodies 1+; Eosinophils % (auto) 0.8 %; Immature Granulocytes # (auto) 0.14 K/uL (0.01-0.20); Immature Granulocytes % (auto) 1.2 %; Lymphocytes # (auto) 1.88 K/uL (1.20-3.40); Lymphocytes % (auto) 15.9 %; Monocytes # (auto) 0.71 K/uL (0.11-0.59); Neutrophils # (auto) 8.93 K/uL (1.40-6.50); Neutrophils % (auto) 75.8 %; Polychromasia 1+
[2024-11-10 20:48] LABS: Alanine Aminotransferase 4 U/L (7-52); Albumin Globulin Ratio 0.8 (0.9-2); Albumin Level 2.8 gm/dl (3.4-5.0); Alkaline Phosphatase 48 U/L (34-104); Anion Gap 6 (3-11); Aspartate Aminotransferase 8 U/L (13-39); BUN Creatinine Ratio 9.9 (10-20); Bilirubin,Total 0.2 mg/dl (0.2-1.0); Blood Urea Nitrogen 15 mg/dl (6-23); Calcium 8.3 mg/dl (8.6-10.3); Carbon Dioxide 28 mmol/L (21-32); Chloride 100 mmol/L (98-107); Globulin 3.6 gm/dl (2.5-4.0); Glucose 116 mg/dl (70-99(Fasting)); Potassium 3.6 mmol/L (3.5-5.1); Sodium 134 mmol/L (136-145); Total Protein 6.4 gm/dl (6.0-8.3)
[2024-11-10 20:52] LABS: Troponin I High Sensitivity 6.6 pg/ml (0-14)
[2024-11-10] MEDS ORDERED: SODIUM CHLORIDE 0.9% 100 ML IV PRN (20:53)
[2024-11-10 20:55] LABS: INR 1.1 (0.9-1.1); Partial Thromboplastin Ratio 0.9; Partial Thromboplastin Time 24 Seconds (21-31); Prothrombin Time 11.4 Seconds (9.0-12.0)
[2024-11-10] MEDS: SODIUM CHLORIDE 0.9% 1,000 ML IV SCH (20:57)
[2024-11-10 22:33] LABS: Appearance Urine Cloudy (Clear); Bacteria Urine Automated 3+ (None Seen); Bilirubin Urine Negative (Negative); Blood Urine Negative (Negative); Cast Urine Automated >20 /lpf (0-2); Color Urine Yellow; Glucose Urine UA Negative (Negative); Hyaline Casts Urine Present /lpf (None Presnt); Ketones Urine Trace (Negative); Leukocyte Esterase Urine Negative (Negative); Mucus Urine Present (None Prsent); Nitrite Urine Negative (Negative); Protein Urine 1+ (Negative); RBC Urine Automated 0-2 /hpf (0-2); Specific Gravity Urine 1.022 (1.000-1.030); Urobilinogen Urine Negative (Negative); WBC Urine Automated 0-5 /hpf (0-5)
--- NOTE | 2024-11-10 22:37 | History & Physical Report ---
Date of Service November 10, 2024 Assessment & Plan (1) Syncope and collapse: (2) Rectal bleeding: (3) Acute blood loss anemia: (4) History of chronic ulcerative colitis: Plan 53-year-old female with history of ulcerative colitis presenting after a syncopal event at home. Patient has had rectal bleeding ongoing for the last 2 weeks in setting of ulcerative colitis flare. Hemoglobin = 7.9, hematocrit = 25.9. Presently hemodynamically stable #Syncope and collapsetroponin is unremarkable, EKG without ischemic changes. Likely secondary to underlying acute blood loss anemia. telemetry monitoring Check orthostatic vital signs #Rectal bleeding/history of chronic ulcerative colitis/acute blood loss anemia patient reports ongoing blood loss for the last 2 weeks. She follows with gastroenterology at [facility] and is compliant with her budesonide as well as newly on Remicade (due for her third dose tomorrow 11/11/24). - check stool C. difficile and PCR. Patient recently had the studies obtained outpatient. Did review her [facility] chart with assistance of the resident and unfortunately the results are not yet in Patient is reluctant to receive blood transfusion and would prefer to support her counts with infusions of IV iron instead. I did discuss with her that depending what her H/H values are tomorrow we may strongly recommend blood transfusion over IV iron alone -Venofer 300mg IV to be given in AM pending results of CBC -Urine culture PENDING -GI Consultation appreciated for further recommendations on UC flare management #Hypothyroidism - -Continue Synthroid #Nasal congestion -Continue Fluticasone and Cetirizine -Tylenol PRN History of Present Illness Chief Complaint: diarrhea, rectal bleeding Primary Care Provider: Laura Verde DO Doris Edmondson Is a 53-year-old female with history of ulcerative colitis presenting with increased rectal bleeding. Patient reports experiencing symptoms of a UC flare starting approximately 2.5 weeks ago. She began having diarrhea on 10/26/2024 which turned bloody several days later. She reports passing a large amount of bright red blood since then. Today after lunch patient became lightheaded. Later in the day she took a shower and had a syncopal event. Her was present during the event and reports that she lost consciousness for approximately 15 seconds. No seizure activity. When she regained consciousness she developed nausea and vomited (nonbloody). She has some abdominal cramping as well. She has some sinus congestion and ear pain as well. Otherwise denies fever/chills/chest pain/palpitation/cough/shortness of breath. No additional complaints at this time. Patient follows with gastroenterology at [facility] and her primary care physician is Sonu Colon. She is compliant with her home budesonide and has recently been started on Remicade. She is due for her third dose of Remicade tomorrow 11/11/24 to be given at [facility]. Patient with chronic iron deficiency anemia. Her last outpatient hemoglobin on 10/28/2024 was 9.1. She had a recent iron level of 11. She is to start scheduled iron infusions outpatient. In the emergency room she is afebrile, hemodynamically stable. Allergies Allergy/AdvReac Type Severity Reaction Status Date / Time latex Allergy Intermediate Hives Verified 07/08/24 14:16 Penicillins Allergy Intermediate HIVES Verified 07/08/24 14:16 Sulfa (Sulfonamide Allergy Intermediate hives Verified 07/08/24 14:16 Antibiotics) petrolatum, yellow Allergy Unknown RASH, Verified 07/08/24 14:16 ITCHING nickel Allergy Itching Verified 07/08/24 14:16 Home Medications Medication Instructions Recorded Confirmed Type cetirizine 10 mg tablet (Zyrtec) 10 mg PO DAILY 11/27/23 11/10/24 History fluoxetine 40 mg capsule 40 mg PO DAILY 11/27/23 11/10/24 History fluticasone propionate 50 1 spray intranasal DAILY PRN Nasal 11/27/23 11/10/24 History mcg/actuation nasal Congestion spray,suspension (Flonase Allergy Relief) levothyroxine 175 mcg tablet 175 mcg PO QAM 11/27/23 11/10/24 History (Synthroid) cyanocobalamin (vitamin B-12) 500 1,000 mcg (2 x 500 mcg) PO QAM #30 12/01/23 11/10/24 Rx mcg tablet tabs folic acid 1 mg tablet 1 mg PO QAM #30 tabs 12/01/23 11/10/24 Rx acetaminophen 650 mg 650 mg PO Q12H 07/08/24 11/10/24 History tablet,extended release (Tylenol 8 Hour) budesonide 9 mg tablet,delayed and 9 mg PO DAILY 07/08/24 11/10/24 History extended release (Uceris) infliximab 100 mg intravenous 100 mg IV DIRECTED 11/10/24 11/10/24 History solution (Remicade) iron 50 mg iron tablet 50 tab PO QAM 11/10/24 11/10/24 History Past Med/Surg History Problem List (Updated 11/11/24 @ 00:47 by Kandi Weiner DO) Acute blood loss anemia History of chronic ulcerative colitis (Acute) Rectal bleeding (Acute) Syncope and collapse (Acute) Numbness and tingling in both hands Bilateral hand pain Arthralgia Iron deficiency anemia Left knee pain Cellulitis of left lower extremity Failure of outpatient treatment (Acute) Immunocompromised (Acute) Anemia (Acute) Leukocytosis (Acute) Cellulitis (Acute) Left leg pain (Acute) Hemorrhoids Ulcerative colitis Vaginal enterocele Encounter for routine gynecological examination Eczema Anxiety Rosacea Encounter for pre-operative examination Anxiety (Chronic) Allergic rhinitis Ankle sprain Encounter for annual routine gynecological examination Dysfunction of eustachian tube Hypothyroidism Hypertension Eczema Allergic conjunctivitis Medical History Submucous leiomyoma of uterus Blood in stool reason for up coming colonoscopy History of COVID-19 x2, most recent Jul 2021 > not hospitalized Anxiety also gets very anxious about medical procedures Asthma does not use res inh > well controlled per pt Abnormal uterine bleeding (AUB) Fibroid, uterine resolved Enterocele Surgical History Hx of breast biopsy benign Hx of eye surgery bilat for thyroid eye issues History of tooth extraction Hx of colonoscopy History of ERCP 2012 Hx of cholecystectomy 2012 H/O: hysterectomy 2014 Family History Mother Colorectal cancer Hypertension Environmental allergies Asthma Grandmother (Maternal) Stroke Father Skin cancer Environmental allergies Grandfather (Maternal) Myocardial infarction Other No family history of adverse response to anesthesia No family history of bleeding disorder Denies family history of Ovarian cancer Prostate cancer Breast cancer Social History Smoking Status: Never smoker Second Hand Exposure: No; Do You Dip or Chew Tobacco: No; Hx Alcohol Use: No Hx Substance Use: No Preferred Language: Nauruan Communication Ability: Effective Electronics Technology Instructor Required: No Beliefs That Will Affect Care: None marital status: Current Living Situation: Spouse and Family Current Living Situation Comment: lives with and 2 adult children in 2 story home current occupational status: employed current occupation: Teacher Feels Safe at Home: Yes Assistive Devices: None Review of Systems Review of Systems: All systems reviewed & are unremarkable except as noted in HPI & below Physical Exam Physical Exam: General: patient resting comfortably, NAD, non-toxic in appearance, AA&O x 4 Skin: warm, dry, intact, no rashes or lesions, +Pallor noted of skin and oral mucosa HEENT: NC/AT, PERRL, EOMI, anicteric sclera, conjunctiva without injection, external ear normal to inspection and nontender, nares patent, moist mucus membranes, dentition intact, no oropharyngeal lesions, neck supple, trachea midline, no LAD, no thyromegaly, no JVD Heart: +S1/S2, regular, no m/r/g Lungs: equal air entry bilaterally, no rales/rhonchi/wheezes Abd: +BS, soft, NT/ND, no masses/organomegaly/ascites Ext: warm, 2+ pulses in UE/LE bilaterally, no clubbing/cyanosis or edema Neuro: nonfocal, patient AA&O x 4, speech intact, no facial droop, moving all extremities on command with equal strength 5/5 Results & Data Results & Data Vital Signs (Past 12 Hours) Vital Signs Temp Pulse Pulse Resp BP Pulse Ox O2 Del Method 11/10/24 22:17 96 H 16 95 Room Air 11/10/24 20:19 96 H 11/10/24 20:09 95 H 11/10/24 19:56 36.7 C 110 H 16 114/77 98 Room Air Laboratory Results Laboratory Results WBC 11.79 K/ul (4.8-10.8) H 11/10/24 20:17 RBC 3.11 M/uL (4.20-5.40) L 11/10/24 20:17 Hgb 7.9 g/dl (12.0-16.0) L 11/10/24 20:17 POC Hgb 8.8 g/dl (12.0-16.0) L 11/10/24 20:23 Hct 25.9 % (37.0-47.0) L 11/10/24 20:17 POC Hct 26 % (37-47) L 11/10/24 20:23 MCV 83.3 fL (80.0-100.0) 11/10/24 20: MCH 25.4 pg (25.0-34.0) 11/10/24 20: MCHC 30.5 g/dL (32.0-36.0) L 11/10/24: RDW Std Deviation 56.3 fL (36.4-46.3) H 11/10/24 20:17 RDW Coeff of Alphonse 18.4 % (11.5-14.5) H 11/10/24 20:17 Plt Count 491 K/uL (130-400) H 11/10/24 20:17 MPV 8.1 fL (9.4-12.4) L 11/10/24 20:17 Immature Gran % (Auto) 1.2 % 11/10/24 20:17 Neut % (Auto) 75.8 % 11/10/24 20:17 Lymph % (Auto) 15.9 % 11/10/24 20:17 [place] % (Auto) 6.0 % 11/10/24 20:17 Eos % (Auto) 0.8 % 11/10/24: Baso % (Auto) 0.3 % 11/10/24:17 Neut # (Auto) 8.93 K/uL (1.40-6.50) H 11/10/24 20:17 Lymph # (Auto) 1.88 K/uL (1.20-3.40) 11/10/24 20:17 [place] # (Auto) 0.71 K/uL (0.11-0.59) H 11/10/24 20:17 Eos # (Auto) 0.10 K/uL (0.00-0.50) 11/10/24 20:17 Baso # (Auto) 0.03 K/uL (0.00-0.20) 11/10/24 20:17 Immature Gran # (Auto) 0.14 K/uL (0.01-0.20) 11/10/24 20: Absolute Nucleated RBC 0.05 K/uL (0.00-0.12) 11/10/24 20:17 Nucleated RBC % (auto) 0.4 % 11/10/24 20:17 Dohle Bodies 1+ 11/10/24 20:17 Polychromasia 1+ 11/10/24 20:17 PT 11.4 Seconds (9.0-12.0) 11/10/24 20:17 INR 1.1 (0.9-1.1) 11/10/24 20:17 APTT 24 Seconds (21-31) 11/10/24 20:17 PTT Ratio 0.9 11/10/24 20:17 POC Sodium 135 mmol/L (135-144) 11/10/24 20:23 Sodium 134 mmol/L (136-145) L 11/10/24 20:17 POC Potassium 3.5 mmol/L (3.3-5.0) 11/10/24 20: Potassium 3.6 mmol/L (3.5-5.1) 11/10/24 20:17 POC Chloride 98 mmol/L (101-112) L 11/10/24 20: Chloride 100 mmol/L (98-107) 11/10/24 20:17 Carbon Dioxide 28 mmol/L (21-32) 11/10/24 20:17 POC Total CO2 25 mmol/L (24-31) 11/10/24 20:23 Anion Gap 6 (3-11) 11/10/24 20:17 POC Anion Gap 18.0 mmol/L (16-25) 11/10/24 20:23 POC BUN 14 mg/dl (7-18) 11/10/24 20:23 BUN 15 mg/dl (6-23) 11/10/24 20:17 Creatinine 1.52 mg/dl (0.6-1.2) H 11/10/24 20:17 POC Creatinine 1.8 mg/dl (0.6-1.3) H 11/10/24 20:23 Est Cr Clr Drug Dosing Not Reportable 11/10/24 20:17 eGFR 40.25 11/10/24 20:17 BUN/Creatinine Ratio 9.9 (10-20) L 11/10/24 20:17 Glucose 116 mg/dl (70-99(Fasting)) H 11/10/24 20:17 POC Glucose (other) 118 mg/dl (70-99) H 11/10/24 20:23 Calcium 8.3 mg/dl (8.6-10.3) L 11/10/24 20:17 POC Ioniz Calcium [place] 1.12 mmol/l (1.12-1.32) 11/10/24 20:23 Total Bilirubin 0.2 mg/dl (0.2-1.0) 11/10/24 20:17 AST 8 U/L (13-39) L 11/10/24 20:17 ALT 4 U/L (7-52) L 11/10/24 20:17 Alkaline Phosphatase 48 U/L (34-104) 11/10/24 20:17 Troponin I High Sens 6.6 pg/ml (0-14) 11/10/24 20:17 Total Protein 6.4 gm/dl (6.0-8.3) 11/10/24 20:17 Albumin 2.8 gm/dl (3.4-5.0) L 11/10/24 20:17 Globulin 3.6 gm/dl (2.5-4.0) 11/10/24 20:17 Albumin/Globulin Ratio 0.8 (0.9-2) L 11/10/24 20:17 Urine Color Yellow 11/10/24 21:18 Urine Appearance Cloudy (Clear) A 11/10/24 21:18 Urine pH 6.0 (4.5-7.5) 11/10/24 21:18 Ur Specific [place] 1.022 (1.000-1.030) 11/10/24 21:18 Urine Protein 1+ (Negative) H 11/10/24 21:18 Urine Glucose (UA) Negative (Negative) 11/10/24 21:18 Urine Ketones Trace (Negative) H 11/10/24 21:18 Urine Blood Negative (Negative) 11/10/24 21:18 Urine Nitrite Negative (Negative) 11/10/24 21:18 Urine Bilirubin Negative (Negative) 11/10/24 21:18 Urine Urobilinogen Negative (Negative) 11/10/24 21:18 Ur Leukocyte Esterase Negative (Negative) 11/10/24 21:18 Urine WBC (Auto) 0-5 /hpf (0-5) 11/10/24 21:18 Urine RBC (Auto) 0-2 /hpf (0-2) 11/10/24 21:18 U Hyaline Cast (Auto) >20 /lpf (0-2) H 11/10/24 21:18 U Epithel Cells (Auto) 6-10 /hpf (0-2) H 11/10/24 21:18 Urine Bacteria (Auto) 3+ (None Seen) H 11/10/24 21:18 Hyaline Casts Present /lpf (None Presnt) A 11/10/24 21:18 Urine Mucus Present (None Prsent) A 11/10/24 21:18 Blood Type B Positive 11/10/24 20:17 Blood Type Recheck B Positive 11/10/24 21:31 Antibody Screen NEGATIVE 11/10/24 20:17 Crossmatch See Detail 11/10/24 20:17 Impressions Chest X-Ray 11/10/24 21:52 Exam(s): XR CXR 1 VIEW EXAM: XR Chest, 1 View CLINICAL HISTORY: Reason for exam: syncope. TECHNIQUE: Frontal view of the chest. COMPARISON: No relevant prior studies available. FINDINGS: Lungs: Unremarkable. No acute infiltration, atelectasis or mass. Pleural space: Unremarkable. No pneumothorax or pleural fluid. Heart: Unremarkable. No cardiomegaly. Mediastinum: Unremarkable. Normal mediastinal contour. Bones/joints: No acute findings. IMPRESSION: No acute findings in the chest. Electronically signed by: Edwin Rivera MD 11/10/24 23:03 PM Code Status & VTE Plan VTE Prophylaxis Plan VTE Prophylaxis will be ordered: Yes PG Care Time/CCT Total # of Minutes Spent Total Time Spent with Patient: Total time spent is greater than 50% in coordination of care (as documented) at patient's floor/unit and/or counseling patient: Coding Level of Care Code 14273 INT INP/OBS CARE 3/75MIN Diagnoses Syncope and collapse R55 Rectal bleeding K62.5 Acute blood loss anemia D62 History of chronic ulcerative colitis Z87.19
--- NOTE | 2024-11-10 23:04 | XRay Report ---
Exam(s): XR CXR 1 VIEW EXAM: XR Chest, 1 View CLINICAL HISTORY: Reason for exam: syncope. TECHNIQUE: Frontal view of the chest. COMPARISON: No relevant prior studies available. FINDINGS: Lungs: Unremarkable. No acute infiltration, atelectasis or mass. Pleural space: Unremarkable. No pneumothorax or pleural fluid. Heart: Unremarkable. No cardiomegaly. Mediastinum: Unremarkable. Normal mediastinal contour. Bones/joints: No acute findings. IMPRESSION: No acute findings in the chest. Electronically signed by: Edwin Rivera MD 11/10/24 23:03 PM
[2024-11-10] MEDS ORDERED: FLUTICASONE PROPIONATE NA SPR 16 GM BTL PRN (23:57)
[2024-11-10] MEDS ORDERED: ONDANSETRON INJ 2 MG/ML 2 ML VIAL IV PRN (23:57)
[2024-11-11 03:48] LABS: Adenovirus F 40/41 PCR Not Detected (NotDetected); Astrovirus PCR Not Detected (NotDetected); Campylobacter PCR Not Detected (NotDetected); Cryptosporidium PCR Not Detected (NotDetected); Cyclospora cayetanensis PCR Not Detected (NotDetected); Entamoeba histolytica PCR Not Detected (NotDetected); Enteroaggregative E.coli(EAEC) Not Detected (NotDetected); Enteropathogenic E.coli (EPEC) Not Detected (NotDetected); Enterotoxigenic E.coli (ETEC) Not Detected (NotDetected); Giardia lamblia PCR Not Detected (NotDetected); Norovirus GI/GII PCR Not Detected (NotDetected); Plesiomonas shigelloides PCR Not Detected (NotDetected); Rotavirus A PCR Not Detected (NotDetected); Salmonella PCR Not Detected (NotDetected); Sapovirus PCR Not Detected (NotDetected); Shiga-like Toxin E.coli (STEC) Not Detected (NotDetected); Shigella/Enteroinvasive E.coli Not Detected (NotDetected); Vibrio cholerae PCR Not Detected (NotDetected); Vibrio species PCR Not Detected (NotDetected); Yersinia enterocolitica PCR Not Detected (NotDetected)
[2024-11-11] MEDS: LEVOTHYROXINE SODIUM 175 MCG TABLET PO SCH (06:10)
[2024-11-11 07:04] LABS: Hematocrit (blood only) 22.9 % (37.0-47.0); Hemoglobin 7.1 g/dl (12.0-16.0); Mean Corpuscular Hemoglobin 25.8 pg (25.0-34.0); Mean Corpuscular Volume 83.3 fL (80.0-100.0); Mean Platelet Volume 8.1 fL (9.4-12.4); Nucleated RBC # (auto) 0.02 K/uL (0.00-0.12); Nucleated RBC % (auto) 0.3 %; Platelet Count 406 K/uL (130-400); RDW Coefficient of Variation 18.5 % (11.5-14.5); Red Blood Count 2.75 M/uL (4.20-5.40); White Blood Count 7.31 K/ul (4.8-10.8)
[2024-11-11 07:23] LABS: Anion Gap 3 (3-11); BUN Creatinine Ratio 11.9 (10-20); Blood Urea Nitrogen 12 mg/dl (6-23); Calcium 8.1 mg/dl (8.6-10.3); Carbon Dioxide 29 mmol/L (21-32); Chloride 104 mmol/L (98-107); Creatinine Clr Calc Pharmacy 78.7 ml/min; Glucose 106 mg/dl (70-99(Fasting)); Potassium 3.5 mmol/L (3.5-5.1); Sodium 136 mmol/L (136-145)
[2024-11-11] MEDS: ACETAMINOPHEN 325 MG TAB PO PRN (07:55)
[2024-11-11] MEDS: FLUoxetine HCL 20 MG CAP PO SCH (07:56)
[2024-11-11] MEDS: BUDESONIDE EC 3 MG CAP PO SCH (07:56)
[2024-11-11] MEDS: FOLIC ACID 1 MG TAB PO SCH (07:56)
[2024-11-11] MEDS: CETIRIZINE HCL 10 MG TABLET PO SCH (07:57)
[2024-11-11] MEDS ORDERED: SODIUM CHLORIDE 0.9% 100 ML IV PRN (08:01)
[2024-11-11 09:30] LABS: Iron < 10 mcg/dl (35-150)
[2024-11-11 09:47] LABS: T4 Free Thyroxine 1.25 ng/dl (0.61-1.60)
--- NOTE | 2024-11-11 11:11 | Electrocardiogram Report ---
Test Reason : Blood Pressure : */* mmHG Vent. Rate : 97 BPM Atrial Rate : 97 BPM P-R Int : 162 ms QRS Dur : 94 ms QT Int : 366 ms P-R-T Axes : 39 15 4 degrees QTcB Int : 464 ms Normal sinus rhythm Nonspecific ST abnormality When compared with ECG of 30-Jun-2017 17:07, Vent. rate has increased by 32 bpm QT has lengthened Confirmed by David Daniel ([id number]) on 11/11/2024 11:11:07 AM Referred By: REFERRED SELF Confirmed By: David Daniel
--- NOTE | 2024-11-11 11:15 | Gastrointestinal Consultation ---
Date of Consultation November 11, 2024 Assessment & Plan (1) Ulcerative colitis: -Liquid diet today, NPO after midnight. Bowel prep ordered. Plan for flex sig on 11/12/2024 to reassess/biopsy for CMV. -Obtain CRP & stool calprotectin -D/C Budesonide as patient is not improving on this; Would add Solu-medrol 40 mg IV Q12 hours while here now that stool studies have returned negative. -Would prescribe vitamin D/calcium supplementation with high dose corticosteroids as I would expect these to be tapered over the next 8 weeks (40 mg x 1 week, 35 mg x 1 week, 30 mg x 1 week, 25 mg x 1 week, 20 mg x 1 week, 15 mg x 1 week, 10 mg x 1 week, 5 mg x 1 week on discharge). -Treatment of JOHNNIE per primary team. -Will need close outpatient follow-up with her [facility] on discharge. Will need to reschedule her Remicade infusion as well. Supervising Physician Co-Signing Physician Notes I examined the patient and reviewed patient's chart , laboratory data and imaging studies. I agree with with assessment and plan of care as suggested by advanced practice provider. Sigmoidoscopy with biopsies to rule out CMV colitis causing exacerbation of patient's symptoms. The procedure is scheduled for tomorrow. History of Present Illness Reason for Consultation: Ulcerative Colitis Attending Physician: Edwin Concepcion MD History of Present Illness Patient is a 53 yo female with PMH of Ulcerative Colitis who presented to the ED due to increased rectal bleeding. She was diagnosed with Ulcerative Colitis in 2022 at which time she was put on 5ASA therapy. She notes that she initially did OK but then had recurrent flares of her symptoms. She was then placed on Entyvio. She notes that Entyvio drug levels were insufficient and her GI at [facility] advised that she transition to Remicade. She was also diagnosed with RA in this time period, making Remicade a good choice. She has had 2 infusions with minimal improvement of her symptoms. She was to have the third infusion today, but is hospitalized with rectal bleeding. She has been on Budesonide since July 2024. She does not feel as though it's helped. She has struggled with anemia. She has received infusions in the past for iron deficiency anemia. Her H/H today is 7.1/22.9. She notes she will be receiving a blood transfusion. She has frequent loose stools/rectal bleeding. Stool PCR & C diff negative. Allergies Allergy/AdvReac Type Severity Reaction Status Date / Time latex Allergy Intermediate Hives Verified 07/08/24 14:16 Penicillins Allergy Intermediate HIVES Verified 07/08/24 14:16 Sulfa (Sulfonamide Allergy Intermediate hives Verified 07/08/24 14:16 Antibiotics) petrolatum, yellow Allergy Unknown RASH, Verified 07/08/24 14:16 ITCHING nickel Allergy Itching Verified 07/08/24 14:16 Home Medications Medication Instructions Recorded Confirmed Type cetirizine 10 mg tablet (Zyrtec) 10 mg PO DAILY 11/27/23 11/10/24 History fluoxetine 40 mg capsule 40 mg PO DAILY 11/27/23 11/10/24 History fluticasone propionate 50 1 spray intranasal DAILY PRN Nasal 11/27/23 11/10/24 History mcg/actuation nasal Congestion spray,suspension (Flonase Allergy Relief) levothyroxine 175 mcg tablet 175 mcg PO QAM 11/27/23 11/10/24 History (Synthroid) cyanocobalamin (vitamin B-12) 500 1,000 mcg (2 x 500 mcg) PO QAM #30 12/01/23 11/10/24 Rx mcg tablet tabs folic acid 1 mg tablet 1 mg PO QAM #30 tabs 12/01/23 11/10/24 Rx acetaminophen 650 mg 650 mg PO Q12H 07/08/24 11/10/24 History tablet,extended release (Tylenol 8 Hour) budesonide 9 mg tablet,delayed and 9 mg PO DAILY 07/08/24 11/10/24 History extended release (Uceris) infliximab 100 mg intravenous 100 mg IV DIRECTED 11/10/24 11/10/24 History solution (Remicade) iron 50 mg iron tablet 50 tab PO QAM 11/10/24 11/10/24 History Patient History Medical History Submucous leiomyoma of uterus Blood in stool reason for up coming colonoscopy History of COVID-19 x2, most recent Jul 2021 > not hospitalized Anxiety also gets very anxious about medical procedures Asthma does not use res inh > well controlled per pt Abnormal uterine bleeding (AUB) Fibroid, uterine resolved Enterocele Surgical History Hx of breast biopsy benign Hx of eye surgery bilat for thyroid eye issues History of tooth extraction Hx of colonoscopy History of ERCP 2012 Hx of cholecystectomy 2012 H/O: hysterectomy 2014 Family History Mother Colorectal cancer Hypertension Environmental allergies Asthma Grandmother (Maternal) Stroke Father Skin cancer Environmental allergies Grandfather (Maternal) Myocardial infarction Other No family history of adverse response to anesthesia No family history of bleeding disorder Denies family history of Ovarian cancer Prostate cancer Breast cancer Social History Smoking Status: Never smoker Second Hand Exposure: No; Do You Dip or Chew Tobacco: No; Tobacco Cessation Education Requested by Patient: No Hx Alcohol Use: No Hx Substance Use: No Preferred Language: Gambian Communication Ability: Effective Director Special Education Required: No Beliefs That Will Affect Care: None marital status: Current Living Situation: Spouse and Family Current Living Situation Comment: lives with and 2 adult children in 2 story home current occupational status: employed current occupation: Teacher Other Information That Helps Us Care for You: No Feels Safe at Home: Yes Safety Concerns: Feels Safe At This Time Assistive Devices: None Review of Systems Constitutional: no fever and no chills Respiratory: no cough and no dyspnea Gastrointestinal: + abdominal pain, + diarrhea/loose stool s and + blood in stools Physical Exam Constitutional: well developed Respiratory: normal respiratory effort Psychiatric: Orientation: alert and oriented x 3 Results & Data Vital Signs (Past 12 Hours) Vital Signs Temp Pulse Pulse Resp BP Pulse Ox O2 Del Method 11/11/24 08:06 36.7 C 79 16 125/84 100 Room Air 11/11/24 07:25 82 11/11/24 00:32 93 H 11/11/24 00:32 37.1 C 93 H 16 106/73 96 Room Air 11/10/24 23:39 92 H 16 115/82 100 Room Air PG Care Time/CCT Total # of Minutes Spent Total Time Spent with Patient: Total time spent is greater than 50% in coordination of care (as documented) at patient's floor/unit and/or counseling patient: Coding Level of Care Code 55872 INT INP/OBS CARE MIN Diagnoses Ulcerative colitis K51.90
[2024-11-11] MEDS: methylPREDNISolone 125 MG/2 ML VIAL IV STA (11:17)
[2024-11-11] MEDS: ALPRAZolam 0.5 MG TABLET PO PRN (12:20)
--- NOTE | 2024-11-11 12:38 | Hospitalist Progress Note ---
Date of Service November 11, 2024 Assessment & Plan (1) Syncope and collapse: Plan: Occurred while she was in the shower and witnessed by her . Probably related to acute blood loss and transient hypotension. She is complaining of low back pain and sacral discomfort from her fall. X-rays ordered and pending (2) Rectal bleeding: Plan: She appears to have a flare of her ulcerative colitis. She is now on parenteral steroid therapy. GI consultation appreciated. Flexible sigmoidoscopy will be done tomorrow, November 12 (3) Acute blood loss anemia: Plan: From lower GI bleeding associated with ulcerative colitis. She is also iron deficient. Hemoglobin is down to 7.1 this morning, November 11. She has agreed to blood transfusion. Iron replacement will commence tomorrow, November 12. (4) History of chronic ulcerative colitis: Plan: She is normally treated by Dr. Luna at the [facility]. She is steroid- dependent. (5) Primary hypothyroidism: Plan: Free T3 and free T4 levels are normal. Continue current thyroxine dosage Plan Anticipate eventual discharge back to her home later this week Admission and Anticipated Discharge Date Admission Date: November 10, 2024 Subjective Alert and oriented. is at the bedside. Hemoglobin is dropped to 7.1. She agrees to receive blood transfusion. GI consultation noted. Flexible sigmoidoscopy will be done tomorrow, November 12. I spoke to the nurse at the [facility] and Dr. Luna office. She is now on parenteral steroid therapy and the oral Entocort has been discontinued. Repeat iron level is very low and parenteral iron replacement will commence tomorrow, November 12. She is receiving blood transfusion today, November 11. Review of Systems 2 Review of Systems: Constitutionalno fever or chills ENTno blurred vision, no double vision, no epistaxis, no sore throat Respiratoryno cough, no wheezing, no shortness of breath Cardiacno palpitations, no chest pain, no syncope Gurpreet nausea, vomiting, diarrhea, melena, hematochezia GUno urinary retention, no urinary incontinence, no dysuria, no hematuria Musculoskeletalno joint pain, no muscle tenderness Skinpallor noted. No bruising Neurono isolated weakness, no paresthesia, no weakness Psychno depression, no anxiety Physical Exam 2 Physical Exam: General-alert and oriented x3, no fever, no chills HEENT-head atraumatic and normocephalic, pupils equal and reactive to light, extraocular muscles intact Neck-no lymphadenopathy or thyromegaly, trachea midline Chest-clear to auscultation. No rales, wheezing or rhonchi Cardiac-regular rate and rhythm, normal S1 and S2 Abdomen-normal bowel sounds, no hepatosplenomegaly Extremities-no cyanosis, clubbing, or edema Musculoskeletalshe has tenderness in the lumbosacral area to palpation Skinpallor noted Neuro-cranial nerves II through XII intact, motor and sensory function within normal limits, strength symmetrical, no focal deficits Psych-normal affect, normal mood Results & Data Results & Data Vital Signs (Past 12 Hours) Vital Signs Temp Pulse Pulse Resp BP Pulse Ox O2 Del Method 11/11/24 08:06 36.7 C 79 16 125/84 100 Room Air 11/11/24 07:25 82 Laboratory Results 11/11/24 06:49 11/11/24 06:49 PG Care Time/CCT Total # of Minutes Spent Total Time Spent with Patient: Total time spent is greater than 50% in coordination of care (as documented) at patient's floor/unit and/or counseling patient: Coding Level of Care Code 18367 SUB INP/OBS CARE 3/50MIN Diagnoses Syncope and collapse R55 Rectal bleeding K62.5 Acute blood loss anemia D62 History of chronic ulcerative colitis Z87.19 Primary hypothyroidism E03.9
[2024-11-11 13:22] LABS: C Reactive Protein 8.49 mg/dl (0-0.5)
--- NOTE | 2024-11-11 16:22 | XRay Report ---
Technique: 3 views of the lumbar spine are submitted for review Findings: The lumbar vertebrae are in normal alignment with no listhesis seen. No fracture is identified. There is mild disc space narrowing at L2-3 and L3-4, as well as degenerative spur formation. There are minimal degenerative spurs at L1-2 and L4-5. There is facet osteoarthritis at L5-S1. No focal osseous lesion is seen. There are mildly prominent air-filled loops of bowel that may be due to ileus. Surgical clips are seen suggestive of prior cholecystectomy Impression: 1. Multilevel degenerative disc disease 2. L5-S1 facet osteoarthritis Electronically signed by Warren Calzada 11-11-2024 4:22 PM
--- NOTE | 2024-11-11 16:27 | XRay Report ---
Clinical History: Fall 3 views of the sacrum and coccyx are submitted for review. Findings: No fracture or dislocation is seen. No significant arthritic changes are noted. No other osseous abnormality is identified. There are no radiopaque foreign bodies. Impression: Unremarkable radiographs of the sacrum and coccyx Electronically signed by Warren Calzada 11-11-2024 4:26 PM
[2024-11-11 18:06] LABS: Hemoglobin 8.3 g/dl (12.0-16.0)
[2024-11-11] MEDS: LAVAGE SOLUTION 4000ML PO SCH (18:27)
[2024-11-11] MEDS ORDERED: methylPREDNISolone 1000 MG/16 ML IV SCH (21:00)
[2024-11-11] MEDS: CALCIUM 600MG + VIT D 400 IU TAB PO SCH (22:27)
[2024-11-11] MEDS: methylPREDNISolone 40 MG in SYRINGE 0 ML IV SCH (22:27)
[2024-11-12 02:32] LABS: Basophils # (auto) 0.01 K/uL (0.00-0.20); Basophils % (auto) 0.1 %; Hematocrit (blood only) 28.6 % (37.0-47.0); Hematocrit (blood only) 28.7 % (37.0-47.0); Hemoglobin 9.1 g/dl (12.0-16.0); Immature Granulocytes # (auto) 0.06 K/uL (0.01-0.20); Immature Granulocytes % (auto) 0.7 %; Lymphocytes # (auto) 1.03 K/uL (1.20-3.40); Lymphocytes % (auto) 12.5 %; Mean Corpuscular Hemoglobin 25.9 pg (25.0-34.0); Mean Corpuscular Hgb Conc 31.8 g/dL (32.0-36.0); Mean Corpuscular Volume 81.3 fL (80.0-100.0); Mean Platelet Volume 8.2 fL (9.4-12.4); Monocytes # (auto) 0.19 K/uL (0.11-0.59); Monocytes % (auto) 2.3 %; Neutrophils # (auto) 6.93 K/uL (1.40-6.50); Neutrophils % (auto) 84.4 %; Nucleated RBC # (auto) 0.02 K/uL (0.00-0.12); Nucleated RBC % (auto) 0.2 %; Platelet Count 439 K/uL (130-400); RDW Coefficient of Variation 17.5 % (11.5-14.5); RDW Standard Deviation 52.3 fL (36.4-46.3); Red Blood Count 3.52 M/uL (4.20-5.40); White Blood Count 8.22 K/ul (4.8-10.8)
[2024-11-12 07:27] LABS: Hemoglobin 9.4 g/dl (12.0-16.0)
[2024-11-12 07:53] LABS: BUN Creatinine Ratio 13.8 (10-20); Calcium 8.5 mg/dl (8.6-10.3); Creatinine Clr Calc Pharmacy 99.3 ml/min; Potassium 3.5 mmol/L (3.5-5.1)
--- NOTE | 2024-11-12 08:40 | Anesthesiology Consultation ---
Date of Service November 12, 2024 Assessment & Plan Chart Review Chart Review: Acceptable Risk for Surgery, Patient NOT seen in Pre Admission Testing and sonographer initiated Consults Requested none Proposed Anesthesia Anesthesia Type: MAC History Surgery Operation Date: 11/12/24 16:30 Proposed Procedures p Flexible Sigmoidoscopy Tammy Munoz MD Height/Weight Height: 5 ft 7 in Weight: 105.6 kg Allergies Allergy/AdvReac Type Severity Reaction Status Date / Time latex Allergy Intermediate Hives Verified 07/08/24 14:16 Penicillins Allergy Intermediate HIVES Verified 07/08/24 14:16 Sulfa (Sulfonamide Allergy Intermediate hives Verified 07/08/24 14:16 Antibiotics) petrolatum, yellow Allergy Unknown RASH, Verified 07/08/24 14:16 ITCHING nickel Allergy Itching Verified 07/08/24 14:16 Medications Home Medications Medication Instructions Recorded Confirmed Last Taken cetirizine 10 mg tablet (Zyrtec) 10 mg PO DAILY 11/27/23 11/10/24 11/10/24 fluoxetine 40 mg capsule 40 mg PO DAILY 11/27/23 11/10/24 11/10/24 fluticasone propionate 50 1 spray intranasal DAILY PRN Nasal 11/27/23 11/10/24 11/10/24 mcg/actuation nasal Congestion spray,suspension (Flonase Allergy Relief) levothyroxine 175 mcg tablet 175 mcg PO QAM 11/27/23 11/10/24 11/10/24 (Synthroid) cyanocobalamin (vitamin B-12) 500 1,000 mcg (2 x 500 mcg) PO QAM #30 12/01/23 11/10/24 11/10/24 mcg tablet tabs folic acid 1 mg tablet 1 mg PO QAM #30 tabs 12/01/23 11/10/24 11/10/24 acetaminophen 650 mg 650 mg PO Q12H 07/08/24 11/10/24 11/10/24 tablet,extended release (Tylenol 8 Hour) budesonide 9 mg tablet,delayed and 9 mg PO DAILY 07/08/24 11/10/24 11/10/24 extended release (Uceris) infliximab 100 mg intravenous 100 mg IV DIRECTED 11/10/24 11/10/24 11/10/24 solution (Remicade) iron 50 mg iron tablet 50 tab PO QAM 11/10/24 11/10/24 11/10/24 Active Medications Generic Name Dose Route Start Last Admin Trade Name Freq PRN Reason Stop Dose Admin Acetaminophen 650 mg 11/10/24 23:57 11/11/24 07:55 Acetaminophen 325 Mg Tab PO 12/10/24 23:56 650 mg Q4H PRN Administration Pain or Fever Alprazolam 0.5 mg 11/11/24 12:03 11/11/24 12:20 Alprazolam 0.5 Mg Tablet PO 12/11/24 12:02 0.5 mg Q12H PRN Administration Anxiety Calcium/Vitamin D 1 tab 11/11/24 21:00 11/11/24 22:27 Calcium 600mg + Vit D 400 Iu Tab PO 12/11/24 20:59 1 tab BID ALL Administration Cetirizine HCl 10 mg 11/11/24 09:00 11/11/24 07:57 Cetirizine Hcl 10 Mg Tablet PO 12/11/24 08:59 10 mg DAILY ALL Administration Fluoxetine HCl 40 mg 11/11/24 09:00 11/11/24 07:56 Fluoxetine Hcl 20 Mg Cap PO 12/11/24 08:59 40 mg DAILY ALL Administration Folic Acid 1 mg 11/11/24 09:00 11/11/24 07:56 Folic Acid 1 Mg Tab PO 12/11/24 08:59 1 mg QAM ALL Administration Methylprednisolone 40 mg/ 0.64 mls @ 1.5 mls/min 11/11/24 21:00 11/11/24 22:27 Syringe IV 12/11/24 20:59 1.5 mls/min BID ALL Administration Levothyroxine Sodium 175 mcg 11/11/24 06:30 11/12/24 06:01 Levothyroxine Sodium 175 Mcg Tablet PO 12/11/24 06:29 175 mcg DAILYBB ALL Administration Past Medical History Medical History Submucous leiomyoma of uterus Blood in stool reason for up coming colonoscopy History of COVID-19 x2, most recent Jul 2021 > not hospitalized Anxiety also gets very anxious about medical procedures Asthma does not use res inh > well controlled per pt Abnormal uterine bleeding (AUB) Fibroid, uterine resolved Enterocele Past Family History Family History Mother Colorectal cancer Hypertension Environmental allergies Asthma Grandmother (Maternal) Stroke Father Skin cancer Environmental allergies Grandfather (Maternal) Myocardial infarction Other No family history of adverse response to anesthesia No family history of bleeding disorder Denies family history of Ovarian cancer Prostate cancer Breast cancer Past Surgical History Surgical History Hx of breast biopsy benign Hx of eye surgery bilat for thyroid eye issues History of tooth extraction Hx of colonoscopy History of ERCP 2012 Hx of cholecystectomy 2012 H/O: hysterectomy 2014 Social History Smoking Status: Never smoker Do You Dip or Chew Tobacco: No Hx Alcohol Use: No Hx Substance Use: No substance use type: does not use Physical Exam Vital Signs Last Vital Signs Temp 36.4 C L 11/12/24 07:20 Pulse 77 11/12/24 07:27 Resp 16 11/12/24 07:20 BP 119/78 11/12/24 07:20 Pulse Ox 95 11/12/24 07:20 O2 Del Method Room Air 11/12/24 07:20 Testing Laboratory Results 11/12/24 05:23 11/12/24 05:23 PT 11.4 Seconds (9.0-12.0) 11/10/24 20:17 INR 1.1 (0.9-1.1) 11/10/24 20:17 APTT 24 Seconds (21-31) 11/10/24 20:17 Urine Color Yellow 11/10/24 21:18 Urine Appearance Cloudy (Clear) A 11/10/24 21:18 Urine pH 6.0 (4.5-7.5) 11/10/24 21:18 Ur Specific [place] 1.022 (1.000-1.030) 11/10/24 21:18 Urine Protein 1+ (Negative) H 11/10/24 21:18 Urine Glucose (UA) Negative (Negative) 11/10/24 21:18 Urine Ketones Trace (Negative) H 11/10/24 21:18 Urine Nitrite Negative (Negative) 11/10/24 21:18 Ur Leukocyte Esterase Negative (Negative) 11/10/24 21:18 Urine WBC (Auto) 0-5 /hpf (0-5) 11/10/24 21:18 Urine RBC (Auto) 0-2 /hpf (0-2) 11/10/24 21:18 U Hyaline Cast (Auto) >20 /lpf (0-2) H 11/10/24 21:18 U Epithel Cells (Auto) 6-10 /hpf (0-2) H 11/10/24 21:18 Urine Bacteria (Auto) 3+ (None Seen) H 11/10/24 21:18 Blood Type B Positive 11/10/24 20:17 Antibody Screen NEGATIVE 11/10/24 20:17 11/10/24 21:18 Urine Culture - Preliminary Urine,Clean Catch No growth - Less than 1,000 colonies/mL, Final report to follow. Electrocardiogram Date: 11/10/24 Blood Pressure : */* mmHG Vent. Rate : 97 BPM Atrial Rate : 97 BPM P-R Int : 162 ms QRS Dur : 94 ms QT Int : 366 ms P-R-T Axes : 39 15 4 degrees QTcB Int : 464 ms Normal sinus rhythm Nonspecific ST abnormality When compared with ECG of 30-Jun-2017 17:07, Vent. rate has increased by 32 bpm QT has lengthened Confirmed by David Daniel ([id number]) on 11/11/2024 11:11:07 AM Chest X-Ray Date: 11/10/24 EXAM: XR Chest, 1 View CLINICAL HISTORY: Reason for exam: syncope. TECHNIQUE: Frontal view of the chest. COMPARISON: No relevant prior studies available. FINDINGS: Lungs: Unremarkable. No acute infiltration, atelectasis or mass. Pleural space: Unremarkable. No pneumothorax or pleural fluid. Heart: Unremarkable. No cardiomegaly. Mediastinum: Unremarkable. Normal mediastinal contour. Bones/joints: No acute findings. IMPRESSION: No acute findings in the chest.
--- NOTE | 2024-11-12 09:30 | History & Physical Bridge Note ---
Date of Service November 12, 2024 History & Physical Bridge Note I have examined the patient, reviewed the History & Physical and in the interval since the performance of the History & Physical I have noted the following changes of clinical significance: no changes noted Patient has been NPO with the exception of her bowel prep. She did pass some blood during bowel preparation. She notes liquid yellow stools. Keep NPO and proceed with flex sig today for biopsies to rule out CMV. Supervising Physician Co-Signing Physician Notes I examined the patient and reviewed patient's chart , laboratory data and imaging studies. I agree with with assessment and plan of care as suggested by advanced practice provider
[2024-11-12] MEDS: SODIUM CHLORIDE 0.9% 1,000 ML IV SCH (09:54)
--- NOTE | 2024-11-12 12:16 | GI REPORT ---
[facility] Patient: AJ JAMESON : 1970 Sex at : Female Age: 53 Years Procedure: Flexible Sigmoidoscopy Date: 11/12/2024 Attending Physician: Josh Munoz MD Referring MD: Edwin Concepcion Indications: - Personal history of ulcerative colitis - Hematochezia - Rule out CMV colitis Medications: - Monitored Anesthesia Care Complications: - No immediate complications. Estimated Blood Loss: - Estimated blood loss was minimal. Procedure: - The pediatric colonoscope was introduced through the anus and advanced to the left transverse colon. - The flexible sigmoidoscopy was accomplished with ease. - The patient tolerated the procedure well. - The quality of the bowel preparation was good. Findings: - The digital rectal exam was normal. - Inflammation was found in a continuous and circumferential pattern from the anus to the transverse colon. This was graded as Lutz Score 3 (severe, with spontaneous bleeding, ulcerations). Biopsies were taken with a cold forceps for histology. Multiple biopsies were obtained. The specimen sent for histology and immunohistochemistry for CMV Impression: - Severe (Lutz Score 3) pancolitis ulcerative colitis. Biopsied. - Multiple biopsies were obtained. The specimen sent for histology and immunohistochemistry for CMV Recommendation: - Await pathology results. - Continue present medications. Procedure Code(s): - 99292, Sigmoidoscopy, flexible; with biopsy, single or multiple Diagnosis Code(s): - K92.1, Melena (includes Hematochezia) - K51.00, Ulcerative (chronic) pancolitis without complications CPT(R) - 2023 copyright [employer]. All Rights Reserved. The CPT codes, CCI edits and ICD codes generated are intended as suggestions and were generated based on input data. These codes are preliminary and upon shipbuilding draftsperson review may be revised to meet current compliance and payer requirements. The provider is responsible for the final determination of appropriate codes, and modifiers. Josh Munoz M.D. , MD This document has been electronically signed. Note Initiated:11/12/2024 Note Completed:11/12/2024 12:15 PM [id number]
[2024-11-12] MEDS: IRON SUCROSE 300 MG in SODIUM CHLORIDE 0.9% 250 ML IV ONE (13:28)
--- NOTE | 2024-11-12 13:48 | Anesthesiology Progress Note ---
Date of Service November 12, 2024 Anesthesia Post Procedure Vital Signs Vital Signs: Temp Pulse Pulse Pulse Resp BP BP 11/12/24 13:07 36.4 C L 80 18 122/85 11/12/24 12:42 74 20 121/77 11/12/24 12:27 77 18 94/56 L 11/12/24 12:12 77 18 96/54 L 11/12/24 10:53 36.3 C L 78 16 121/80 11/12/24 07:27 77 11/12/24 07:20 36.4 C L 79 16 119/78 11/12/24 04:56 78 11/12/24 03:53 36.6 C 80 16 115/82 11/12/24 01:54 36.3 C L 79 16 114/76 11/12/24 01:00 36.7 C 76 16 99/66 L 11/12/24 00:00 36.7 C 76 16 114/78 11/11/24 23:30 36.7 C 76 16 108/73 11/11/24 23:15 36.8 C 78 16 99/65 L 11/11/24 23:00 36.8 C 76 16 101/67 11/11/24 22:45 36.8 C 76 18 111/70 11/11/24 19:21 36.4 C L 75 18 104/69 11/11/24 15:26 36.6 C 74 18 115/74 11/11/24 15:00 36.7 C 76 18 115/74 11/11/24 14:09 81 11/11/24 14:00 36.8 C 83 16 127/75 Pulse Ox O2 Del Method 11/12/24 13:07 98 Room Air 11/12/24 12:42 98 Room Air 11/12/24 12:27 98 Room Air 11/12/24 12:12 98 Room Air 11/12/24 10:53 98 Room Air 11/12/24 07:27 11/12/24 07:20 95 Room Air 11/12/24 04:56 11/12/24 03:53 94 11/12/24 01:54 97 11/12/24 01:00 94 11/12/24 00:00 95 11/11/24 23:30 95 11/11/24 23:15 94 11/11/24 23:00 97 11/11/24 22:45 98 Room Air 11/11/24 19:21 96 Room Air 11/11/24 15:26 96 11/11/24 15:00 96 11/11/24 14:09 11/11/24 14:00 94 Transfer of Care Handoff Completed per policy Notes Mental Status: alert / awake / arousable and participated in evaluation Patient Amnestic to Procedure: Yes Nausea / Vomiting: adequately controlled Pain: adequately controlled Airway Patency, RR, SpO2: stable & adequate BP & HR: stable & adequate Hydration State: stable & adequate Anesthetic Complications: no major complications apparent
--- NOTE | 2024-11-12 15:37 | Hospitalist Progress Note ---
Date of Service November 12, 2024 Assessment & Plan (1) Syncope and collapse: Plan: Occurred while she was in the shower and witnessed by her . Probably related to acute blood loss and transient hypotension. She has some low back pain and sacral discomfort from her fall. X-rays are negative for fracture. Pain control measures ordered (2) Rectal bleeding: Plan: She appears to have a flare of her ulcerative colitis. She is now on parenteral steroid therapy. GI consultation appreciated. Flexible sigmoidoscopy was completed today, November 12, with evidence of severe ulcerative colitis seen. Biopsy was performed to rule out CMV and is pending. (3) Acute blood loss anemia: Plan: From lower GI bleeding associated with ulcerative colitis. She is also iron deficient. She received 2 units of blood on November 11 for hemoglobin 7.1 and hemoglobin is now 9.4 and appears to be stable. Iron replacement therapy starting today, November 12. (4) History of chronic ulcerative colitis: Plan: She is normally treated by Dr. Luna at the [facility]. She is steroid- dependent. She is now on parenteral steroid therapy. She will eventually be discharged on oral prednisone which replaces her Entocort p.o. (5) Primary hypothyroidism: Plan: Free T3 and free T4 levels are normal. Continue current thyroxine dosage Plan Hopeful discharge to home tomorrow, November 13 Admission and Anticipated Discharge Date Admission Date: November 10, 2024 Subjective The patient was seen after her flex sig. She has evidence of severe ulcerative colitis. She is now on Solu-Medrol and will be eventually discharged on oral prednisone. Her Entocort has been discontinued. Hemoglobin is 9.4 and stable after transfusion yesterday for hemoglobin 7.1. Iron replacement is underway. If she remains stable, hopefully she can go home tomorrow, November 13 Review of Systems 2 Review of Systems: Constitutionalno fever or chills ENTno blurred vision, no double vision, no epistaxis, no sore throat Respiratoryno cough, no wheezing, no shortness of breath Cardiacno palpitations, no chest pain, no syncope Gurpreet nausea, vomiting, diarrhea, melena, hematochezia GUno urinary retention, no urinary incontinence, no dysuria, no hematuria Musculoskeletalno joint pain, no muscle tenderness Skinpallor noted. No bruising Neurono isolated weakness, no paresthesia, no weakness Psychno depression, no anxiety Physical Exam 2 Physical Exam: General-alert and oriented x3, no fever, no chills HEENT-head atraumatic and normocephalic, pupils equal and reactive to light, extraocular muscles intact Neck-no lymphadenopathy or thyromegaly, trachea midline Chest-clear to auscultation. No rales, wheezing or rhonchi Cardiac-regular rate and rhythm, normal S1 and S2 Abdomen-normal bowel sounds, no hepatosplenomegaly Extremities-no cyanosis, clubbing, or edema Musculoskeletalshe has tenderness in the lumbosacral area to palpation Skinpallor noted Neuro-cranial nerves II through XII intact, motor and sensory function within normal limits, strength symmetrical, no focal deficits Psych-normal affect, normal mood Results & Data Results & Data Vital Signs (Past 12 Hours) Vital Signs Temp Pulse Pulse Pulse Resp BP BP 11/12/24 15:08 36.4 C L 78 18 111/75 11/12/24 13:07 36.4 C L 80 18 122/85 11/12/24 12:42 74 20 121/77 11/12/24 12:27 77 18 94/56 L 11/12/24 12:12 77 18 96/54 L 11/12/24 10:53 36.3 C L 78 16 121/80 11/12/24 07:27 77 11/12/24 07:20 36.4 C L 79 16 119/78 11/12/24 04:56 78 11/12/24 03:53 36.6 C 80 16 115/82 Pulse Ox O2 Del Method 11/12/24 15:08 95 Room Air 11/12/24 13:07 98 Room Air 11/12/24 12:42 98 Room Air 11/12/24 12:27 98 Room Air 11/12/24 12:12 98 Room Air 11/12/24 10:53 98 Room Air 11/12/24 07:27 11/12/24 07:20 95 Room Air 11/12/24 04:56 11/12/24 03:53 94 Laboratory Results 11/12/24 05:23 11/12/24 05:23 PG Care Time/CCT Total # of Minutes Spent Total Time Spent with Patient: Total time spent is greater than 50% in coordination of care (as documented) at patient's floor/unit and/or counseling patient: Coding Level of Care Code 05668 SUB INP/OBS CARE 350MIN Diagnoses Syncope and collapse R55 Rectal bleeding K62.5 Acute blood loss anemia D62 History of chronic ulcerative colitis Z87.19 Primary hypothyroidism E03.9
[2024-11-13] MEDS: LIDOCAINE 2% 2 ML VIAL/AMP(20MG/ML) INFIL ONE (05:23)
[2024-11-13] MEDS: PROPOFOL IV EMULSION 10 MG/ML 20 ML VIAL IV ONE ×2 (05:23→05:24)
[2024-11-13] MEDS: LEVOTHYROXINE SODIUM 175 MCG TABLET PO SCH (05:24)
[2024-11-13 06:40] LABS: Hemoglobin 9.2 g/dl (12.0-16.0); Mean Corpuscular Hemoglobin 25.4 pg (25.0-34.0); Mean Corpuscular Hgb Conc 30.7 g/dL (32.0-36.0); Mean Corpuscular Volume 82.9 fL (80.0-100.0); Mean Platelet Volume 8.3 fL (9.4-12.4); Nucleated RBC # (auto) 0.02 K/uL (0.00-0.12); Nucleated RBC % (auto) 0.2 %; Platelet Count 399 K/uL (130-400); RDW Standard Deviation 54.2 fL (36.4-46.3); Red Blood Count 3.62 M/uL (4.20-5.40); White Blood Count 9.72 K/ul (4.8-10.8)
[2024-11-13 07:07] LABS: Basophils # (auto) 0.01 K/uL (0.00-0.20); Basophils % (auto) 0.1 %; Immature Granulocytes # (auto) 0.43 K/uL (0.01-0.20); Immature Granulocytes % (auto) 4.4 %; Lymphocytes # (auto) 1.68 K/uL (1.20-3.40); Lymphocytes % (auto) 17.3 %; Monocytes # (auto) 0.54 K/uL (0.11-0.59); Monocytes % (auto) 5.6 %; Neutrophils # (auto) 7.06 K/uL (1.40-6.50); Neutrophils % (auto) 72.6 %; Polychromasia 1+
[2024-11-13 07:27] LABS: Calcium 8.5 mg/dl (8.6-10.3); Potassium 3.7 mmol/L (3.5-5.1)
[2024-11-13 07:33] LABS: BUN Creatinine Ratio 14.9 (10-20); Creatinine Clr Calc Pharmacy 93.6 ml/min
[2024-11-13] MEDS: IRON SUCROSE 300 MG in SODIUM CHLORIDE 0.9% 250 ML IV ONE (08:21)
[2024-11-13 09:31] VITALS: RESP 16
[2024-11-13 11:18] VITALS: BP 114/77; PULSE 73; TEMP 98.2; O2SAT 96
--- NOTE | 2024-11-13 11:32 | Discharge Summary ---
Discharge Summary Date of Service November 13, 2024 Principal Dx & Hospital Course #1 = Principal Diagnosis (1) Syncope and collapse: Occurred while she was in the shower and witnessed by her . Probably related to acute blood loss and transient hypotension. She has some low back pain and sacral discomfort from her fall. X-rays are negative for fracture. Pain control measures. (2) Rectal bleeding: She appears to have a flare of her ulcerative colitis. She is now on parenteral steroid therapy. GI consultation appreciated. Flexible sigmoidoscopy was completed today, November 12, with evidence of severe ulcerative colitis seen. Biopsy was performed to rule out CMV and is pending. (3) Acute blood loss anemia: From lower GI bleeding associated with ulcerative colitis. She is also iron deficient. She received 2 units of blood on November 11 for hemoglobin 7.1 and hemoglobin is now 9.4 and appears to be stable. She received parenteral iron replacement therapy while hospitalized (4) History of chronic ulcerative colitis: She is normally treated by Dr. Luna at the [facility]. She is steroid- dependent. She was treated while hospitalized with parenteral steroid therapy. She will be discharged on oral prednisone 20 mg twice daily which replaces her Entocort p.o. (5) Primary hypothyroidism: Free T3 and free T4 levels are normal. Continue current thyroxine dosage Plan Home today, November 13. Follow-up with her motor and chassis inspector and PCP as soon as possible Admission HPI Per Admitting Provider Doris Edmondson Is a 53-year-old female with history of ulcerative colitis presenting with increased rectal bleeding. Patient reports experiencing symptoms of a UC flare starting approximately 2.5 weeks ago. She began having diarrhea on 10/26/2024 which turned bloody several days later. She reports passing a large amount of bright red blood since then. Today after lunch patient became lightheaded. Later in the day she took a shower and had a syncopal event. Her was present during the event and reports that she lost consciousness for approximately 15 seconds. No seizure activity. When she regained consciousness she developed nausea and vomited (nonbloody). She has some abdominal cramping as well. She has some sinus congestion and ear pain as well. Otherwise denies fever/chills/chest pain/palpitation/cough/shortness of breath. No additional complaints at this time. Patient follows with gastroenterology at [facility] and her primary care physician is Sonu Colon. She is compliant with her home budesonide and has recently been started on Remicade. She is due for her third dose of Remicade tomorrow 11/11/24 to be given at [facility]. Patient with chronic iron deficiency anemia. Her last outpatient hemoglobin on 10/28/2024 was 9.1. She had a recent iron level of 11. She is to start scheduled iron infusions outpatient. In the emergency room she is afebrile, hemodynamically stable. Discharge Exam General-alert and oriented x3, no fever, no chills HEENT-head atraumatic and normocephalic, pupils equal and reactive to light, extraocular muscles intact Neck-no lymphadenopathy or thyromegaly, trachea midline Chest-clear to auscultation. No rales, wheezing or rhonchi Cardiac-regular rate and rhythm, normal S1 and S2 Abdomen-normal bowel sounds, no hepatosplenomegaly Extremities-no cyanosis, clubbing, or edema Musculoskeletalshe has tenderness in the lumbosacral area to palpation Skinpallor noted Neuro-cranial nerves II through XII intact, motor and sensory function within normal limits, strength symmetrical, no focal deficits Psych-normal affect, normal mood Discharge Plan Discharge Items Patient Disposition: Home - Self-Care Reason For Visit: SYNCOPE, ACUTE BLOOD LOSS ANEMIA Discharge Diagnosis: Acute exacerbation ulcerative colitis, lower GI bleeding, acute blood loss anemia, syncope Activity: Resume your previous activity Non-emergency contact: Primary Care Provider and Turbo Operator Call non-emergency contact if: you have any medication questions and your symptoms worsen Follow-up/Referrals: Laura Verde, [Primary Care Provider] - Diet: Regular Addtl Attending Provider Instructions: Prednisone replaces Entocort. Follow-up with primary care provider and motor and chassis inspector as soon as possible. A prescription for the prednisone has been sent to [facility] pharmacy on Pending Studies at Discharge: No Stand-Alone Forms: My [facility], Smoking Cessation Medications and DC Order Prescriptions: New prednisone 10 mg tablet See Rx Instructions .ROUTE .COMPLEX Qty: 90 0RF Rx Instructions: Take 2 tablets (20 mg) twice daily Continued acetaminophen [Tylenol 8 Hour] 650 mg tablet extended release 650 mg PO Q12H budesonide [Uceris] 9 mg tablet,delayed and ext.release 9 mg PO DAILY fluoxetine 40 mg capsule 40 mg PO DAILY levothyroxine [Synthroid] 175 mcg tablet 175 mcg PO QAM cetirizine [Zyrtec] 10 mg Tablet 10 mg PO DAILY fluticasone propionate [Flonase Allergy Relief] 50 mcg/actuation [place],Suspension 1 spray INTRANASAL DAILY PRN (Reason: Nasal Congestion) Rx Instructions: administer into each nostril cyanocobalamin (vitamin B-12) 500 mcg Tablet 1,000 mcg PO QAM Qty: 30 0RF folic acid 1 mg Tablet 1 mg PO QAM Qty: 30 0RF iron 50 mg iron Tablet 50 tab PO QAM infliximab [Remicade] 100 mg Recon Soln 100 mg IV DIRECTED Rx Instructions: EVERY 8 WEEKS AFTER LOAD Discharge Orders: Discharge Order (Routine); Ordered 11/13/24 Ordered By: Edwin Concepcion Admission Data Admit Date/Time: 11/10/24 22:28 Attending Provider: Edwin Concepcion Admit Provider: Kandi Weiner Primary Care Provider: Laura Verde Other Providers: Josh Munoz; Kandi Weiner Other Interventions: Discharge Summary Assessment (RN) Last Done: 11/12/24 12:39 Hospital Stay Data Consultations 11/10/24 21:52 ED Decision to Admit Stat 11/10/24 22:28 Consult Gastroenterology Routine Procedures Performed Operation Date: 11/12/24 16:30 Actual Procedures p Flexible Sigmoidoscopy Biopsy - Josh Munoz MD Pending Results Patient Have Any Pending Studies at Discharge: No Discharge Instructions Given to Patient (Per Discharging Provider) Prednisone replaces Entocort. Follow-up with primary care provider and motor and chassis inspector as soon as possible. A prescription for the prednisone has been sent to [facility] pharmacy on [facility] Total Time Total Time Spent Total Time Spent (In Minutes): 45-minute Coding Level of Care Code 05779 INP/OBS DISCH >30 MIN Diagnoses Syncope and collapse R55 Rectal bleeding K62.5 Acute blood loss anemia D62 History of chronic ulcerative colitis Z87.19 Primary hypothyroidism E03.9
--- NOTE | 2024-11-15 08:03 | Coding Query ---
CODING QUERY To promote full compliance with coding requirements relating to patient care, provider participation is requested in all cases of portal administrator uncertainty. Please assist us with the question(s) below: Coding Question(s): Do the following clinical findings indicate Acute kidney failure or something else? Other explanation of clinical findings Unable to determine (no explanation for clinical findings) The medical record reflects the following clinical evidence: Clinical Indicators: Initial Cr 1.52, trending down to 0.80, Baseline range 1.12-1,18 since October 2023 Treatment: IV NSS with 500 cc bolus then continuous, IV solumedrol, serial BMP's Risk Factor(s): acute blood loss anemia, ulcerative colitis flare Physician's Response(s): SABIHA on admission. Resolved with IV fluids Thank you Aleyda Mata Principal Diagnosis: "that condition established after study, to be chiefly responsible for occasioning the admission of the patient to the hospital for care." Co-Existing Principal Diagnosis: "when two or more diagnoses equally meet the criteria for principal diagnosis as determined by the circumstances of admission, diagnostic work up, and/or therapy provided, and the Alphabetic Index, Tabular List, or another coding guideline does not provide sequencing direction, any one of the diagnoses may be sequenced first." "When the physician has documented what appears to be a current diagnosis in the body of the record, but has not included the diagnosis in the final diagnostic statement, the physician should be asked whether the diagnosis should be added." (Source Coding Clinic 2 QTR90. p3-4) JOIE
== END 2024-11-13 15:31 | disposition home or self-care (01) | DRG 386 ==
LOC: SUATTDRO → ED 19:53 → 2N 22:28 → SUATTDRO 22:28 → 2N 23:42

== ENCOUNTER 2025-02-04 19:41 | Inpatient (IN) ==
[2025-02-04 20:24] LABS: Hematocrit (blood only) 32.3 % (37.0-47.0); Hemoglobin 10.0 g/dl (12.0-16.0); Mean Corpuscular Hemoglobin 30.6 pg (25.0-34.0); Mean Corpuscular Volume 98.8 fL (80.0-100.0); Platelet Count 476 K/uL (130-400); RDW Standard Deviation 47.1 fL (36.4-46.3); Red Blood Count 3.27 M/uL (4.20-5.40); White Blood Count 8.58 K/ul (4.8-10.8)
[2025-02-04 20:43] LABS: Alanine Aminotransferase 9.0 U/L (7-52); Albumin Globulin Ratio 0.9 (0.9-2); Alkaline Phosphatase 47.0 U/L (34-104); Anion Gap 6.0 (3-11); Bilirubin,Total 0.1 mg/dl (0.2-1.0); Blood Urea Nitrogen 20.0 mg/dl (6-23); Calcium 8.6 mg/dl (8.6-10.3); Carbon Dioxide 30.0 mmol/L (21-32); Chloride 103.0 mmol/L (98-107); Creatinine Clr Calc Pharmacy 68.2 ml/min; Globulin 3.5 gm/dl (2.5-4.0); Glucose 118.0 mg/dl (70-99(Fasting)); Potassium 4.3 mmol/L (3.5-5.1); Sodium 139.0 mmol/L (136-145); Total Protein 6.6 gm/dl (6.0-8.3)
--- NOTE | 2025-02-04 20:57 | Emergency Department Note ---
Impression & Plan GI bleed, BRBPR (bright red blood per rectum), Anemia ED Provider Note NAME: AJ JAMESON AGE: 54 SEX: F : 1970 ARRIVES VIA: Walk-In INFORMANT: Patient ED PROVIDER(S): Simeon Gupta DO CHIEF COMPLAINT: Bright red blood per rectum HPI: Patient is a 54-year-old female who presents ER with a past medical history of syncope, cellulitis, acute blood loss anemia, hemorrhoids, ulcerative colitis, hypertension who presents to the ER for bright red blood per rectum. She notes this started on the 6th. She was switched from Lovenox to Eliquis on the 6 for blood clots in her lungs and legs. She notes [place] She denies any headache or change in vision. No chest pain or shortness of breath. No dysuria, urgency, or frequency. No other exacerbating or remitting factors. She denies any belly pain. ADDITIONAL HISTORY OBTAINED: Per HPI Chronic Medical/Social Conditions Affecting Care: Per HPI PAST MEDICAL HISTORY:See Below PAST SURGICAL HISTORY:See Below FAMILY HISTORY:See Below SOCIAL HISTORY:See Below HOME MEDICATIONS:See Below ALLERGIES:See Below VITALS:See Below PHYSICAL EXAMINATION: GENERAL: Sitting up in bed, alert, well appearing, well nourished, no distress, non-toxic EYE EXAM: normal conjunctiva. PERRL and EOM's grossly intact. OROPHARYNX: mucous membranes are moist NECK: supple, no nuchal rigidity, no adenopathy, non-tender LUNGS: Clear to auscultation. Normal chest wall mechanics HEART: no murmurs, S1 normal and S2 normal ABDOMEN: abdomen soft, non-tender, normo-active bowel sounds, no masses, no rebound or guarding. UPPER EXTREMITIES: upper extremities are grossly normal. LOWER EXTREMITIES: No pitting edema. NEURO EXAM: Normal sensorium, cranial nerves II-XII grossly intact, normal speech, no gross weakness of arms, no gross weakness of legs. MEDICAL DECISION MAKING: Patient is a 54-year-old female who presents ER for the below stated complaint. IV was established and blood work was obtained. Labs show no significant leukocytosis. Mild anemia 10. ESR slightly elevated at 42. INR was unremarkable. BMP with LFTs bilirubin and troponin was negative. Pro-Anatoliy was normal. With the bleeding started in the past 24 hours which has been persistent on a blood thinner I did discuss case with the hospitalist for further evaluation and observation as it is concerned that this has been persistent for the past 2 days and she does need anticoagulation secondary to recent PEs. Consults/Care Managements Discussions: Per MDM Triage Nursing notes reviewed. Limited review of prior medical records performed Vital Signs: reviewed and remarkable for no significant abnormalities Differential diagnosis: Diverticulosis, AVM, coagulopathy, colitis, inflammatory bowel disease, malignancy, Adriana-Lees tear, esophagitis, peptic ulcer disease, variceal bleed, gastritis, epistaxis, fissure, hemorrhoids, as well as other pathologies. ER treatment provided: See below Diagnostics interpreted by me include EKG and cardiac monitoring as listed below: -Cardiac Monitoring: An order was placed for continuous cardiac monitoring. The monitor shows a rate of 90 with sinus rhythm. -ECG: none -Laboratory studies:Interpreted by me as stated above in MDM and shown below. Imaging studies: Xrays: As interpreted by me:none CTs show: none Procedures:none Critical Care: None Past Med/Surg History Problem List (Updated 02/05/25 @ 00:45 by Simeon Gupta DO) Anemia (Acute) BRBPR (bright red blood per rectum) (Acute) GI bleed (Acute) Acute blood loss anemia Rectal bleeding (Acute) Syncope and collapse (Acute) Numbness and tingling in both hands Bilateral hand pain Arthralgia Iron deficiency anemia Left knee pain Cellulitis of left lower extremity Failure of outpatient treatment (Acute) Immunocompromised (Acute) Anemia (Acute) Leukocytosis (Acute) Cellulitis (Acute) Left leg pain (Acute) Hemorrhoids Ulcerative colitis Vaginal enterocele Encounter for routine gynecological examination Eczema Anxiety Rosacea Encounter for pre-operative examination Anxiety (Chronic) Allergic rhinitis Ankle sprain Encounter for annual routine gynecological examination Dysfunction of eustachian tube Hypothyroidism Hypertension Eczema Allergic conjunctivitis Medical History Submucous leiomyoma of uterus Blood in stool reason for up coming colonoscopy History of COVID-19 x2, most recent Jul 2021 > not hospitalized Anxiety also gets very anxious about medical procedures Asthma does not use res inh > well controlled per pt Abnormal uterine bleeding (AUB) Fibroid, uterine resolved Enterocele Surgical History Hx of breast biopsy benign Hx of eye surgery bilat for thyroid eye issues History of tooth extraction Hx of colonoscopy History of ERCP 2012 Hx of cholecystectomy 2012 H/O: hysterectomy 2014 Family History Mother Colorectal cancer Hypertension Environmental allergies Asthma Grandmother (Maternal) Stroke Father Skin cancer Environmental allergies Grandfather (Maternal) Myocardial infarction Other No family history of adverse response to anesthesia No family history of bleeding disorder Denies family history of Ovarian cancer Prostate cancer Breast cancer Social History Smoking Status: Never smoker Second Hand Exposure: No; Do You Dip or Chew Tobacco: No; Hx Alcohol Use: No Hx Substance Use: No Preferred Language: Filipino Communication Ability: Effective Horse Buyer Required: No Beliefs That Will Affect Care: None marital status: Current Living Situation: Spouse Current Living Situation Comment: lives with and 2 adult children in 2 story home current occupational status: employed current occupation: Teacher Other Information That Helps Us Care for You: No Feels Safe at Home: Yes Safety Concerns: Feels Safe At This Time Assistive Devices: None Allergies Allergies Allergy/AdvReac Type Severity Reaction Status Date / Time latex Allergy Intermediate Hives Verified 02/04/25 22:01 nickel Allergy Intermediate Itching Verified 02/04/25 22:01 Penicillins Allergy Intermediate HIVES Verified 02/04/25 22:01 petrolatum, yellow Allergy Intermediate RASH, Verified 02/04/25 22:01 ITCHING Sulfa (Sulfonamide Allergy Intermediate hives Verified 02/04/25 22:01 Antibiotics) Home Meds Home Medications Medication Instructions Recorded Confirmed cetirizine 10 mg tablet (Zyrtec) 10 mg PO DAILY 11/27/23 02/04/25 fluoxetine 40 mg capsule 40 mg PO DAILY 11/27/23 02/04/25 fluticasone propionate 50 1 spray intranasal DAILY PRN Nasal 11/27/23 02/04/25 mcg/actuation nasal Congestion spray,suspension (Flonase Allergy Relief) levothyroxine 175 mcg tablet 175 mcg PO QAM 11/27/23 02/04/25 (Synthroid) acetaminophen 650 mg 650 mg PO DIRECTED PRN Pain 07/08/24 02/04/25 tablet,extended release (Tylenol 8 Hour) infliximab 100 mg intravenous 100 mg IV DIRECTED 11/10/24 02/04/25 solution (Remicade) apixaban 5 mg tablet (Eliquis) 5 mg PO BID 02/04/25 02/04/25 prednisone 5 mg tablet 5 mg PO DAILY 02/04/25 02/04/25 vancomycin 125 mg capsule 125 mg PO BID 02/04/25 02/04/25 Previous Rx's Medication Instructions Recorded cyanocobalamin (vitamin B-12) 500 1,000 mcg (2 x 500 mcg) PO QAM #30 12/01/23 mcg tablet tabs folic acid 1 mg tablet 1 mg PO QAM #30 tabs 12/01/23 Results & Data (ED) Vital Signs Vital Signs - 24 hr 02/04/25 19:45 02/04/25 20:57 02/04/25 20:58 Temperature 36.7 C Temperature Source Temporal Artery Scan Pulse Rate 90 Pulse Rate [Apical] 83 Respiratory Rate 17 18 Respiratory Effort / Characteristics Non-Labored Spontaneous Respiratory Depth Normal Respiratory Pattern Regular Blood Pressure 140/85 Blood Pressure [Left Arm] 137/84 Blood Pressure Mean 103 Blood Pressure Mean [Left Arm] 101 Pulse Oximetry 99 96 Oxygen Delivery Method Room Air Room Air Room Air Sepsis Recent Fever Within 48 Hours No Sepsis New/Unexplained Change in Mental Status N/A Sepsis Action Taken by Nursing No Action Required 02/04/25 21:02 02/04/25 22:00 Temperature Temperature Source Pulse Rate 83 Pulse Rate [Apical] 79 Respiratory Rate 18 Respiratory Effort / Characteristics Respiratory Depth Respiratory Pattern Blood Pressure Blood Pressure [Left Arm] 136/81 Blood Pressure Mean Blood Pressure Mean [Left Arm] 99 Pulse Oximetry 96 Oxygen Delivery Method Room Air Sepsis Recent Fever Within 48 Hours Sepsis New/Unexplained Change in Mental Status Sepsis Action Taken by Nursing Laboratory Data 02/04/25 20:09 02/04/25 20:09 Lab Results 02/04/25 02/04/25 Range/Units 20:09 21:02 WBC 8.58 (4.8-10.8) K/ul RBC 3.27 L (4.20-5.40) M/uL Hgb 10.0 L (12.0-16.0) g/dl Hct 32.3 L (37.0-47.0) % MCV 98.8 (80.0-100.0) fL MCH 30.6 (25.0-34.0) pg MCHC 31.0 L (32.0-36.0) g/dL RDW Std Deviation 47.1 H (36.4-46.3) fL RDW Coeff of Alphonse 13.2 (11.5-14.5) % Plt Count 476 H (130-400) K/uL MPV 8.4 L (9.4-12.4) fL ESR 42 H (0-30) mm/hr PT 10.3 (9.0-12.0) Seconds INR 0.9 (0.9-1.1) APTT 25 (21-31) Seconds PTT Ratio 0.9 Sodium 139 (136-145) mmol/L Potassium 4.3 (3.5-5.1) mmol/L Chloride 103 (98-107) mmol/L Carbon Dioxide 30 (21-32) mmol/L Anion Gap 6 (3-11) BUN 20 (6-23) mg/dl Creatinine 1.20 (0.6-1.2) mg/dl Est Cr Clr Drug Dosing 68.2 ml/min eGFR 53.13 BUN/Creatinine Ratio 16.7 (10-20) Glucose 118 H (70-99(Fasting)) mg/dl Calcium 8.6 (8.6-10.3) mg/dl Total Bilirubin 0.1 L (0.2-1.0) mg/dl AST 14 (13-39) U/L ALT 9 (7-52) U/L Alkaline Phosphatase 47 (34-104) U/L Troponin I High Sens 8.7 (0-14) pg/ml C-Reactive Protein 1.52 H (0-0.5) mg/dl Total Protein 6.6 (6.0-8.3) gm/dl Albumin 3.1 L (3.4-5.0) gm/dl Globulin 3.5 (2.5-4.0) gm/dl Albumin/Globulin Ratio 0.9 (0.9-2) Procalcitonin 0.03 (0-0.5) ng/ml Blood Type B Positive Antibody Screen NEGATIVE Administered Medications Heparin Sodium/Dextrose (Heparin 35513 Unit/500 Ml D5w) 25,000 units in 500 mls @ 20 mls/hr IV .Q24H ALL; Protocol Stop: 03/06/25 22:59 Last Admin: 02/04/25 23:56 Dose: 1,000 units/hr, 20 mls/hr Documented By: VALENTIN Co-signed By: ROBERT Discontinued Medications Heparin Sodium/Dextrose (Heparin Iv Adult Wt-Based Low-Dose *No* Initial Bolus Protocol) 1 each IV ONE STA; Protocol Stop: 02/04/25 22:36 Last Admin: 02/04/25 22:51 Dose: 1 each Documented By: SAMIA Ioversol (Optiray 320 100ml) 93 ml IV ONCE ONE Stop: 02/04/25 23:50 Last Admin: 02/04/25 23:51 Dose: 93 ml Documented By: GES Discharge Plan Visit Data Chief Complaint: GI Bleed Stated Complaint: BLOOD IN STOOL ED Provider: Simeon Gupta Discharge Problem: GI bleed, BRBPR (bright red blood per rectum), Anemia Patient Disposition: Admitted As Inpatient Condition: Fair Discharge Instructions Interventions: ED Discharge Assessment Last Done: 02/04/25 23:30 Discharge Problem: GI bleed Qualifiers: GI bleed type/associated pathology: unspecified gastrointestinal hemorrhage type Qualified Code(s): K92.2 - Gastrointestinal hemorrhage, unspecified Anemia Qualifiers: Anemia type: unspecified type Qualified Code(s): D64.9 - Anemia, unspecified
[2025-02-04 21:09] LABS: INR 0.9 (0.9-1.1); Partial Thromboplastin Time 25 Seconds (21-31); Prothrombin Time 10.3 Seconds (9.0-12.0)
[2025-02-04] MEDS: Heparin IV Adult Wt-Based Low-Dose *NO* INITIAL Bolus Protocol IV STA (22:51)
--- NOTE | 2025-02-04 22:55 | History & Physical Report ---
Date of Service February 04, 2025 Assessment & Plan (1) Anemia: (2) BRBPR (bright red blood per rectum): (3) Ulcerative colitis: Plan 54 y/o female with pmh of ulcerative colitis, hx of PE/DVT on Eliquis, hypertension, anemia, C diff on oral Vancomycin hemorrhoids that presented here due to bright rectal blood per rectum. Patient states this started on 02/02. Patient recently transition from Lovenox sq to Eliquis on 02/01. Patient states had a flare up recently, she is currently taking katelyn down her steroids, she decreased to 5 mg daily on Monday (02/01) as well. he has history of C diff which she is currently taking 250 mg of Vancomycin twice day. She states that had needed it blood transfusion in the past due to rectal bleed/flare up Patient denied any abdominal pain, or rectal pain. Denied any lightheadedness or dizziness. She denied any fever, chills, or nausea. Denied nay chest pain, SOB, or palpitation. Last dose of Eliquis was this morning. Laboratory remarkable for Anemia of 10.0. No leukocytosis, CRP, ESR added on admission. Patient will be admitted for further management #Rectal bleeding/ hx of ulcerative colitis - Patient with know history of ulcerative colitis on prednisone tipper. Recent change on anticoagulation from Lovenox and Eliquis on the day of onset. - Patient with history of Pulmonary embolism and DVT. Patient didn't took pm dose of Eliquis - Patient follows with [facility] - Hgb 10.0. No leukocytosis - Vital signs stable on admission - Rectal bleeding had stop on evaluation - Abdomen non tender no rebound - CRP, ESR ordered - Abdomen CT with IV contrast - will continue home prednisone, pending results of CT - consider GI consult if flare up of UC - CBC AM, PT/PTT #hx of PE/ DVT - Diagnosed on 10/2024 at [facility] - Switch from Lovenox to Eliquis on 02/01. - Plan to coagulate for 6 months. - Eliquis held - Will place her on low dose heparin drip due to above. May need to transition back to lovenox - CBC AM - Monitoring on telemetry #C diff - PO Vancomycin 250 mg BID continue #Hypothyroidism - -Continue Synthroid #Nasal congestion -Continue Fluticasone and Cetirizine -Tylenol PRN DVT prophylaxis: Heparin drip - History of Present Illness Primary Care Provider: Laura Verde DO 54 y/o female with pmh of ulcerative colitis, hx of PE/DVT on Eliquis, hypertension, anemia, C diff on oral Vancomycin hemorrhoids that presented here due to bright rectal blood per rectum. Patient states this started on 02/02. Patient recently transition from Lovenox sq to Eliquis on 02/01. Patient states had a flare up recently, she is currently taking katelyn down her steroids, she decreased to 5 mg daily on Monday (02/01) as well. he has history of C diff which she is currently taking 250 mg of Vancomycin twice day. She states that had needed it blood transfusion in the past due to rectal bleed/flare up Patient denied any abdominal pain, or rectal pain. Denied any lightheadedness or dizziness. She denied any fever, chills, or nausea. Denied nay chest pain, SOB, or palpitation. Last dose of Eliquis was this morning. Laboratory remarkable for Anemia of 10.0. No leukocytosis, CRP, ESR added on admission. Patient will be admitted for further management Allergies Allergy/AdvReac Type Severity Reaction Status Date / Time latex Allergy Intermediate Hives Verified 02/04/25 22:01 nickel Allergy Intermediate Itching Verified 02/04/25 22:01 Penicillins Allergy Intermediate HIVES Verified 02/04/25 22:01 petrolatum, yellow Allergy Intermediate RASH, Verified 02/04/25 22:01 ITCHING Sulfa (Sulfonamide Allergy Intermediate hives Verified 02/04/25 22:01 Antibiotics) Home Medications Medication Instructions Recorded Confirmed Type cetirizine 10 mg tablet (Zyrtec) 10 mg PO DAILY 11/27/23 02/04/25 History fluoxetine 40 mg capsule 40 mg PO DAILY 11/27/23 02/04/25 History fluticasone propionate 50 1 spray intranasal DAILY PRN Nasal 11/27/23 02/04/25 History mcg/actuation nasal Congestion spray,suspension (Flonase Allergy Relief) levothyroxine 175 mcg tablet 175 mcg PO QAM 11/27/23 02/04/25 History (Synthroid) cyanocobalamin (vitamin B-12) 500 1,000 mcg (2 x 500 mcg) PO QAM #30 12/01/23 02/04/25 Rx mcg tablet tabs folic acid 1 mg tablet 1 mg PO QAM #30 tabs 12/01/23 02/04/25 Rx acetaminophen 650 mg 650 mg PO DIRECTED PRN Pain 07/08/24 02/04/25 History tablet,extended release (Tylenol 8 Hour) infliximab 100 mg intravenous 100 mg IV DIRECTED 11/10/24 02/04/25 History solution (Remicade) apixaban 5 mg tablet (Eliquis) 5 mg PO BID 02/04/25 02/04/25 History prednisone 5 mg tablet 5 mg PO DAILY 02/04/25 02/04/25 History vancomycin 125 mg capsule 125 mg PO BID 02/04/25 02/04/25 History Past Med/Surg History Problem List (Updated 02/05/25 @ 00:45 by Simeon Gupta DO) Anemia (Acute) BRBPR (bright red blood per rectum) (Acute) GI bleed (Acute) Acute blood loss anemia Rectal bleeding (Acute) Syncope and collapse (Acute) Numbness and tingling in both hands Bilateral hand pain Arthralgia Iron deficiency anemia Left knee pain Cellulitis of left lower extremity Failure of outpatient treatment (Acute) Immunocompromised (Acute) Anemia (Acute) Leukocytosis (Acute) Cellulitis (Acute) Left leg pain (Acute) Hemorrhoids Ulcerative colitis Vaginal enterocele Encounter for routine gynecological examination Eczema Anxiety Rosacea Encounter for pre-operative examination Anxiety (Chronic) Allergic rhinitis Ankle sprain Encounter for annual routine gynecological examination Dysfunction of eustachian tube Hypothyroidism Hypertension Eczema Allergic conjunctivitis Medical History Submucous leiomyoma of uterus Blood in stool reason for up coming colonoscopy History of COVID-19 x2, most recent Jul 2021 > not hospitalized Anxiety also gets very anxious about medical procedures Asthma does not use res inh > well controlled per pt Abnormal uterine bleeding (AUB) Fibroid, uterine resolved Enterocele Surgical History Hx of breast biopsy benign Hx of eye surgery bilat for thyroid eye issues History of tooth extraction Hx of colonoscopy History of ERCP 2012 Hx of cholecystectomy 2012 H/O: hysterectomy 2014 Family History Mother Colorectal cancer Hypertension Environmental allergies Asthma Grandmother (Maternal) Stroke Father Skin cancer Environmental allergies Grandfather (Maternal) Myocardial infarction Other No family history of adverse response to anesthesia No family history of bleeding disorder Denies family history of Ovarian cancer Prostate cancer Breast cancer Social History Smoking Status: Never smoker Second Hand Exposure: No; Do You Dip or Chew Tobacco: No; Hx Alcohol Use: No Hx Substance Use: No Preferred Language: Korean Communication Ability: Effective Audograph Operator Required: No Beliefs That Will Affect Care: None marital status: Current Living Situation: Spouse Current Living Situation Comment: lives with and 2 adult children in 2 story home current occupational status: employed current occupation: Teacher Other Information That Helps Us Care for You: No Feels Safe at Home: Yes Safety Concerns: Feels Safe At This Time Assistive Devices: None Review of Systems Review of Systems: as per hpi Physical Exam Constitutional: WD/WN, vitals as above ENMT: external ear and nose normal, oropharynx normal Respiratory: normal respiratory effort, lungs clear to auscultation Cardiovascular: RRR, no murmur, no edema Gastrointestinal (Abdomen): normal bowel sounds, soft, nontender, no hepatosplenomegaly Musculoskeletal: no cyanosis or clubbing, extremities motor strength 5/5 Skin: no rashes, warm and dry Results & Data Results & Data Vital Signs (Past 12 Hours) Vital Signs Temp Pulse Pulse Resp BP BP Pulse Ox 02/04/25 22:00 79 18 136/81 96 02/04/25 21:02 83 02/04/25 20:58 83 18 137/84 96 02/04/25 20:57 02/04/25 19:45 36.7 C 90 17 140/85 99 O2 Del Method 02/04/25 22:00 Room Air 02/04/25 21:02 02/04/25 20:58 Room Air 02/04/25 20:57 Room Air 02/04/25 19:45 Room Air Code Status & VTE Plan VTE Prophylaxis Plan VTE Prophylaxis will be ordered: Yes Supervising Physician Co-Signing Physician Notes Patient seen and examined, chart reviewed, case discussed with Dr. Mic Mullins and I agree with the assessment and plan as above. Patient with Ulcerative Colitis, follows with [facility]. States that she has never fully achieved remission and has had episodic bleeding. Was on Mesalamine initially then Entyvio and is now on Remicade. Patient with history of DVT/PE diagnosed in October - on anticoagulation for a 6 month course Worsening rectal bleed since 02/02. Recently transitioned from Lovenox to Eiquis - states that her doctor did not want her to be on Eliquis while on PO steroids On exam she is resting comfortably, NAD Skin - no rash HEENT - MMM, Neck supple Heart - +S1/S2, regular, no m/r/g Lungs - CTA Abd - soft, NT/ND Ext - no edema Assessment/Plan -Heparin gtt for now to continue anticoagulation -Monitor rectal bleeding, H/H -Awaiting results of CT -Remainder as above (1) Anemia Anemia type: unspecified type Qualified Code(s): D64.9 - Anemia, unspecified
[2025-02-04] MEDS ORDERED: POLYETHYLENE (MIRALAX) 17 GM PACK PO PRN (23:29)
[2025-02-04] MEDS ORDERED: FLUTICASONE PROPIONATE NA SPR 16 GM BTL NAE PRN (23:29)
[2025-02-04] MEDS ORDERED: ONDANSETRON INJ 2 MG/ML 2 ML VIAL IV PRN (23:29)
[2025-02-04] MEDS ORDERED: MELATONIN 3 MG TAB PO PRN (23:29)
[2025-02-04] MEDS ORDERED: ACETAMINOPHEN 325 MG TAB PO PRN (23:29)
[2025-02-04] MEDS: OPTIRAY 320 100ml IV ONE (23:51)
[2025-02-04] MEDS: HEPARIN 25000 UNIT/500 ML D5W 25,000 UNITS/500 ML BAG IV SCH (23:56)
--- NOTE | 2025-02-05 02:08 | Billing Data ---
Date of Service February 04, 2025 Coding Level of Care Code 33037 INT INP/OBS CARE
[2025-02-05 04:52] LABS: Hematocrit (blood only) 30.5 % (37.0-47.0); Hemoglobin 9.2 g/dl (12.0-16.0); Mean Corpuscular Hemoglobin 30.4 pg (25.0-34.0); Mean Corpuscular Volume 100.7 fL (80.0-100.0); Platelet Count 463 K/uL (130-400); RDW Standard Deviation 48.2 fL (36.4-46.3); Red Blood Count 3.03 M/uL (4.20-5.40); White Blood Count 8.46 K/ul (4.8-10.8)
[2025-02-05 05:08] LABS: Alanine Aminotransferase 8.0 U/L (7-52); Albumin Globulin Ratio 1.0 (0.9-2); Alkaline Phosphatase 42.0 U/L (34-104); Anion Gap 5.0 (3-11); Bilirubin,Total 0.1 mg/dl (0.2-1.0); Blood Urea Nitrogen 19.0 mg/dl (6-23); Calcium 8.4 mg/dl (8.6-10.3); Carbon Dioxide 30.0 mmol/L (21-32); Chloride 103.0 mmol/L (98-107); Creatinine Clr Calc Pharmacy 81.8 ml/min; Globulin 2.8 gm/dl (2.5-4.0); Glucose 80.0 mg/dl (70-99(Fasting)); Potassium 4.2 mmol/L (3.5-5.1); Sodium 138.0 mmol/L (136-145); Total Protein 5.7 gm/dl (6.0-8.3)
[2025-02-05 05:18] LABS: INR 1.0 (0.9-1.1); Partial Thromboplastin Time 26 Seconds (21-31); Prothrombin Time 10.6 Seconds (9.0-12.0)
[2025-02-05 05:19] LABS: Immature Granulocytes # (auto) 0.03 K/uL (0.01-0.20); Immature Granulocytes % (auto) 0.4 %
[2025-02-05] MEDS: LEVOTHYROXINE SODIUM 175 MCG TABLET PO SCH (05:48)
--- NOTE | 2025-02-05 07:10 | CT Scan Report ---
Exam(s): CT ABDOMEN + PELVIS With Contrast IV Amt: 93 cc opti 320 EXAM: CT Abdomen and Pelvis With Intravenous Contrast CLINICAL HISTORY: Reason for exam: ulcerative colitis. TECHNIQUE: Axial computed tomography images of the abdomen and pelvis with intravenous contrast. CTDI is 28.14 mGy and DLP is 1499.82 mGy-cm. Automated exposure control was utilized for the study. A dose lowering technique was utilized adhering to the principles of ALARA. CONTRAST: Patient received 93 cc opti 320 of IV contrast COMPARISON: MRCP on 12/24/2012 FINDINGS: Lung bases: Unremarkable. No mass. No consolidation. ABDOMEN: Liver: Small left hepatic cyst. Gallbladder and bile ducts: Prior cholecystectomy. No ductal dilation. Pancreas: Unremarkable. No mass. No ductal dilation. Spleen: Unremarkable. No splenomegaly. Adrenals: Nonspecific small left adrenal nodule. Kidneys and ureters: Small nonobstructing left renal stone. Nonobstructing right renal stone versus parenchymal calcification near scarring. No hydronephrosis or obstructing ureteral stone. Stomach and bowel: Wall thickening of the distal transverse colon, descending colon, and sigmoid colon, concerning for colitis. Surrounding pericolonic lymph nodes. Wall thickening of small bowel loops in the left abdomen may be secondary to underdistention versus enteritis. Evaluation of the stomach is limited by underdistention. Diverticulosis. No small bowel obstruction. PELVIS: Appendix: Normal appendix. Bladder: Unremarkable. No mass. Reproductive: Prior hysterectomy. ABDOMEN and PELVIS: Intraperitoneal space: Unremarkable. No free air. No significant fluid collection. Bones/joints: Degenerative changes of the spine. No acute fracture. No dislocation. Soft tissues: Small fat containing umbilical hernia. Vasculature: Phleboliths in the pelvis. No abdominal aortic aneurysm. Lymph nodes: See above. IMPRESSION: 1. Wall thickening of the distal transverse colon, descending colon, and sigmoid colon, concerning for colitis. Surrounding pericolonic lymph nodes. 2. Wall thickening of small bowel loops in the left abdomen may be secondary to underdistention versus enteritis. 3. Small nonobstructing left renal stone. Nonobstructing right renal stone versus parenchymal calcification near scarring. No hydronephrosis or obstructing ureteral stone. Electronically signed by: Krishna Mckeon M.D. 02/05/25 01:28 AM
[2025-02-05 07:26] LABS: ANTI-Xa, UFH(UnfractionatedHep 0.29 IU/ml (0.3-0.7)
[2025-02-05] MEDS: CHERRY SYRUP 5 ML UDP PO SCH (07:44)
[2025-02-05] MEDS: CYANOCOBALAMIN (B-12) 500 MCG TABLET PO SCH (07:44)
[2025-02-05] MEDS: CETIRIZINE HCL 10 MG TABLET PO SCH ×2 (07:44→20:50)
[2025-02-05] MEDS: VANCOMYCIN HCL 125 MG/2.5ML SOLN PO SCH (07:45)
[2025-02-05] MEDS: FOLIC ACID 1 MG TAB PO SCH (07:45)
--- NOTE | 2025-02-05 12:55 | Gastrointestinal Consultation ---
Date of Consultation February 05, 2025 Assessment & Plan (1) BRBPR (bright red blood per rectum): (2) Ulcerative colitis: (3) C. difficile diarrhea: Plan Patient is a 54 yo female with steroid refractory ulcerative pancolitis currently manged on Remicade 10 mg/kg q 8 weeks at the [facility]. Patient is currently being treated for C diff with a long taper of Vancomycin and this should be continued during her admission. CRP pending at the time of my evaluation--will await results. She is currently on heparin due to DVT/PE. Will defer decisions regarding anticoagulation choices to clinical team, though patient did not struggle with bleeding when on Lovenox. She is down to 5 mg Prednisone in her taper. Will need to determine if there is any role for flex sig/colonoscopy during this admission, but will discuss her clinical case with Dr. Olivera and will await CRP. Supervising Physician Co-Signing Physician Notes I saw and examined this patient with our nurse practitioner and agree with her assessment and plan. Suspect has been precipitated by relation with. She was tolerating Lovenox. She has underlying ulcerative colitis. She is on vancomycin taper for C. difficile. She is also on a prednisone taper. He has diminished since hospitalization. No plans for intervention at this time unless symptoms increase. History of Present Illness Reason for Consultation: "ulcerative colitis" Attending Physician: David Muñoz MD History of Present Illness Patient is a 54 yo female with ulcerative pancolitis who receives her GI care through [facility]. Due to persistent severe disease, she was recently started on Remicade in September 2024. She also continues Prednisone 5 mg daily as part of a taper she was prescribed. The Remicade was recently increased to 10 mg/kg in hopes of more adequately controlling her symptoms. Last flex sig done here on 11/12/24 during a previous hospitalization. She was also recently diagnosed with C diff and continues a Vancomycin taper. In October, she was hospitalized at [facility] then in November subsequently was hospitalized at the [facility] and was found to have DVT/PE. She was initially placed on Lovenox which she tolerated well, but was recently placed on Eliquis instead. She notes that several days ago she started experiencing more significant GI bleeding. She has required blood transfusions in the past due to anemia and rectal bleeding. She notes her GI symptoms are stable otherwise--noting an improvement of bowel frequency with Prednisone and Remicade. H/H 9.2/30.5. She has no leukocytosis. CRP pending at the time of my evaluation. Allergies Allergy/AdvReac Type Severity Reaction Status Date / Time latex Allergy Intermediate Hives Verified 02/04/25 22:01 nickel Allergy Intermediate Itching Verified 02/04/25 22:01 Penicillins Allergy Intermediate HIVES Verified 02/04/25 22:01 petrolatum, yellow Allergy Intermediate RASH, Verified 02/04/25 22:01 ITCHING Sulfa (Sulfonamide Allergy Intermediate hives Verified 02/04/25 22:01 Antibiotics) Home Medications Medication Instructions Recorded Confirmed Type cetirizine 10 mg tablet (Zyrtec) 10 mg PO DAILY 11/27/23 02/04/25 History fluoxetine 40 mg capsule 40 mg PO DAILY 11/27/23 02/04/25 History fluticasone propionate 50 1 spray intranasal DAILY PRN Nasal 11/27/23 02/04/25 History mcg/actuation nasal Congestion spray,suspension (Flonase Allergy Relief) levothyroxine 175 mcg tablet 175 mcg PO QAM 11/27/23 02/04/25 History (Synthroid) cyanocobalamin (vitamin B-12) 500 1,000 mcg (2 x 500 mcg) PO QAM #30 12/01/23 02/04/25 Rx mcg tablet tabs folic acid 1 mg tablet 1 mg PO QAM #30 tabs 12/01/23 02/04/25 Rx acetaminophen 650 mg 650 mg PO DIRECTED PRN Pain 07/08/24 02/04/25 History tablet,extended release (Tylenol 8 Hour) infliximab 100 mg intravenous 100 mg IV DIRECTED 11/10/24 02/04/25 History solution (Remicade) apixaban 5 mg tablet (Eliquis) 5 mg PO BID 02/04/25 02/04/25 History prednisone 5 mg tablet 5 mg PO DAILY 02/04/25 02/04/25 History vancomycin 125 mg capsule 125 mg PO BID 02/04/25 02/04/25 History Patient History Medical History Primary hypothyroidism History of chronic ulcerative colitis Submucous leiomyoma of uterus Blood in stool reason for up coming colonoscopy History of COVID-19 x2, most recent Jul 2021 > not hospitalized Anxiety also gets very anxious about medical procedures Asthma does not use res inh > well controlled per pt Abnormal uterine bleeding (AUB) Fibroid, uterine resolved Enterocele Surgical History Hx of breast biopsy benign Hx of eye surgery bilat for thyroid eye issues History of tooth extraction Hx of colonoscopy History of ERCP 2012 Hx of cholecystectomy 2012 H/O: hysterectomy 2014 Family History Mother Colorectal cancer Hypertension Environmental allergies Asthma Grandmother (Maternal) Stroke Father Skin cancer Environmental allergies Grandfather (Maternal) Myocardial infarction Other No family history of adverse response to anesthesia No family history of bleeding disorder Denies family history of Ovarian cancer Prostate cancer Breast cancer Social History Smoking Status: Never smoker Second Hand Exposure: No; Do You Dip or Chew Tobacco: No; Hx Alcohol Use: No Hx Substance Use: No Preferred Language: Ukrainian Communication Ability: Effective Glaze Supervisor Required: No Beliefs That Will Affect Care: None marital status: Current Living Situation: Spouse Current Living Situation Comment: lives with and 2 adult children in 2 story home current occupational status: employed current occupation: Teacher Feels Safe at Home: Yes Assistive Devices: None Review of Systems Constitutional: no fever and no chills Respiratory: no cough and no dyspnea Cardiovascular: no chest pain Gastrointestinal: + diarrhea/loose stools and + blood in s tools; no abdominal pain Physical Exam Constitutional: well developed Respiratory: normal respiratory effort Gastrointestinal (Abdomen): normal bowel sounds, soft, nontender, no hepatosplenomegaly Psychiatric: Orientation: alert and oriented x 3 Results & Data Vital Signs (Past 12 Hours) Vital Signs Pulse Pulse Resp BP Pulse Ox O2 Del Method 02/05/25 09:04 81 16 116/68 97 Room Air 02/05/25 07:02 75 02/05/25 07:00 72 18 133/78 95 Room Air PG Care Time/CCT Total # of Minutes Spent Total Time Spent with Patient: Total time spent is greater than 50% in coordination of care (as documented) at patient's floor/unit and/or counseling patient: Coding Level of Care Code 94605 IN/OBS CONSULT LVL 4,60M Diagnoses BRBPR (bright red blood per rectum) K62.5 Ulcerative colitis K51.90 C. difficile diarrhea A04.72
--- NOTE | 2025-02-05 13:03 | Hospitalist Progress Note ---
Date of Service February 05, 2025 Assessment & Plan (1) Anemia: (2) BRBPR (bright red blood per rectum): (3) Ulcerative colitis: Plan 54 y/o female with pmh of ulcerative colitis, hx of PE/DVT on Eliquis, hypertension, anemia, C diff on oral Vancomycin hemorrhoids that presented here due to bright rectal blood per rectum. Was started on Lovenox due to noted DVT/PE, but was recently changed to Eliquis (02/01). On the day after this change in medications, she noted the rectal bleed had begun. Also currently tapering off steroids that was started after a recent UC flare. #Rectal bleeding/ hx of ulcerative colitis - Patient with know history of ulcerative colitis on prednisone taper - Patient with history of Pulmonary embolism and DVT and was started on Lovenox, which she tolerated well and had no bleeding while on it Recent change on anticoagulation from Lovenox and Eliquis on the day before onset. - Patient follows with [facility] for management of her UC as she has tried multiple medications in the past w/o success - Hgb 10.0 at time of admission; am labs with hgb of 9.2. No leukocytosis - Rectal bleeding has persisted but is improved compared to before admission - CRP of 1.52 ; ESR of 42 - CTAP w/ wall thickening of the distal transverse colon, descending colon, and sigmoid colon, concerning for colitis, and surrounding pericolonic lymph nodes; wall thickening of small bowel loops in the left abdomen may be secondary to und erdistention versus enteritis - s/p Methylprednisolone 40 mg IV x1; continue home prednisone - GI consulted, will appreciate recs #hx of PE/ DVT - Diagnosed on 10/2024 at [facility] - Eliquis held at time of admission - Will place her on low dose heparin drip due to above. - Would transition back to lovenox at time of admission until completion of treatment for DVT/PE (6 months) #C diff - PO Vancomycin 250 mg BID continue #Hypothyroidism - -Continue Synthroid #Nasal congestion -Continue Fluticasone and Cetirizine -Tylenol PRN Admission and Anticipated Discharge Date Admission Date: February 04, 2025 Supervising Physician Co-Signing Physician Notes Attending attestation Pt seen and examined in concert with Dr. Dev Ghotra. In agreement with the documented findings as noted in the resident documentation with any exceptions or additions as noted here. No acute complaints at time of examination. VS as noted. On examination, S1/S2 nl RRR no MCG. CTAB. Abd NT/ND BS+ve BRBPR w/ h/o ulcerative colitis - GI consult - continue prednisone h/o PE/DVT - heparin drip, consider lovenox vs. warfarin vs. return to apixaban. Else see resident documentation as noted. Subjective Laying in bed comfortably. States rectal bleeding has improved but is still present. Also endorses having diarrhea and some LLQ tenderness. Denies having chest pain, SOB, nausea or vomiting, fevers, or any other sxs. Review of Systems Review of Systems: as per hpi Physical Exam Constitutional: WD/WN, vitals as above ENMT: external ear and nose normal, oropharynx normal Respiratory: normal respiratory effort, lungs clear to auscultation Cardiovascular: RRR, no murmur, no edema Gastrointestinal (Abdomen): Inspection/Auscultation: + abdomen distended (mild-mod) Percussion/Palpation: + abdomen tender (LLQ); no guarding and abdomen not rigid Musculoskeletal: no cyanosis or clubbing, extremities motor strength 5/5 Skin: no rashes, warm and dry Psychiatric: A+Ox3, euthymic affect Results & Data Results & Data Vital Signs (Past 12 Hours) Vital Signs Temp Pulse Pulse Resp BP Pulse Ox O2 Del Method 02/05/25 11:00 36.7 C 82 18 127/76 97 Room Air 02/05/25 09:04 81 16 116/68 97 Room Air 02/05/25 07:02 75 02/05/25 07:00 72 18 133/78 95 Room Air Resident Activity Tracking Resident Involvement: Resident Care Provided Care Provided: Adult Hospital Medicine (1) Anemia Anemia type: unspecified type Qualified Code(s): D64.9 - Anemia, unspecified
[2025-02-05 14:56] LABS: ANTI-Xa, UFH(UnfractionatedHep 0.27 IU/ml (0.3-0.7)
[2025-02-05 22:30] LABS: ANTI-Xa, UFH(UnfractionatedHep 0.24 IU/ml (0.3-0.7)
[2025-02-06] MEDS ORDERED: Nursing to Pharmacy Communication SCH (00:45)
[2025-02-06 06:40] LABS: Hematocrit (blood only) 28.1 % (37.0-47.0); Hemoglobin 8.8 g/dl (12.0-16.0); Mean Corpuscular Hemoglobin 30.7 pg (25.0-34.0); Mean Corpuscular Volume 97.9 fL (80.0-100.0); Platelet Count 452 K/uL (130-400); RDW Standard Deviation 45.4 fL (36.4-46.3); Red Blood Count 2.87 M/uL (4.20-5.40); White Blood Count 8.63 K/ul (4.8-10.8)
[2025-02-06 07:08] LABS: Anion Gap 4.0 (3-11); Blood Urea Nitrogen 18.0 mg/dl (6-23); Calcium 8.3 mg/dl (8.6-10.3); Carbon Dioxide 30.0 mmol/L (21-32); Chloride 106.0 mmol/L (98-107); Creatinine Clr Calc Pharmacy 87.1 ml/min; Glucose 89.0 mg/dl (70-99(Fasting)); Potassium 4.3 mmol/L (3.5-5.1); Sodium 140.0 mmol/L (136-145)
[2025-02-06 07:15] LABS: ANTI-Xa, UFH(UnfractionatedHep 0.23 IU/ml (0.3-0.7)
--- NOTE | 2025-02-06 08:30 | Discharge Summary ---
Date of Service February 06, 2025 Admission HPI Per Admitting Provider 54 y/o female with pmh of ulcerative colitis, hx of PE/DVT on Eliquis, hypertension, anemia, C diff on oral Vancomycin hemorrhoids that presented here due to bright rectal blood per rectum. Patient states this started on 02/02. Patient recently transition from Lovenox sq to Eliquis on 02/01. Patient states had a flare up recently, she is currently taking katelyn down her steroids, she decreased to 5 mg daily on Monday (02/01) as well. he has history of C diff which she is currently taking 250 mg of Vancomycin twice day. She states that had needed it blood transfusion in the past due to rectal bleed/flare up Patient denied any abdominal pain, or rectal pain. Denied any lightheadedness or dizziness. She denied any fever, chills, or nausea. Denied nay chest pain, SOB, or palpitation. Last dose of Eliquis was this morning. Laboratory remarkable for Anemia of 10.0. No leukocytosis, CRP, ESR added on admission. Patient will be admitted for further management Admission Exam Per Admitting Provider Constitutional: WD/WN, vitals as above ENMT: external ear and nose normal, oropharynx normal Respiratory: normal respiratory effort, lungs clear to auscultation Cardiovascular: RRR, no murmur, no edema Gastrointestinal (Abdomen): normal bowel sounds, soft, nontender, no hepatosplenomegaly Musculoskeletal: no cyanosis or clubbing, extremities motor strength 5/5 Skin: no rashes, warm and dry Principal Diagnosis Ulcerative Colitis Discharge Exam Constitutional WD/WN, vitals as above ENMT external ear and nose normal, oropharynx normal Respiratory normal respiratory effort, lungs clear to auscultation Cardiovascular RRR, no murmur, no edema Gastrointestinal (Abdomen) Inspection/Auscultation: + abdomen distended (mild) Percussion/Palpation: abdomen nontender, no guarding and abdomen not rigid Musculoskeletal no cyanosis or clubbing, extremities motor strength 5/5 Skin no rashes, warm and dry Psychiatric A+Ox3, euthymic affect Discharge Data Allergies Allergy/AdvReac Type Severity Reaction Status Date / Time latex Allergy Intermediate Hives Verified 02/04/25 22:01 nickel Allergy Intermediate Itching Verified 02/04/25 22:01 Penicillins Allergy Intermediate HIVES Verified 02/04/25 22:01 petrolatum, yellow Allergy Intermediate RASH, Verified 02/04/25 22:01 ITCHING Sulfa (Sulfonamide Allergy Intermediate hives Verified 02/04/25 22:01 Antibiotics) Consultations 02/04/25 22:00 ED Decision to Admit Stat 02/05/25 08:33 Consult Gastroenterology Routine Ordered Studies 02/04/25 23:13 CT Abd and Pelvis [CT abd pelvis IV con only] Stat Hospital Course (1) Anemia: (2) BRBPR (bright red blood per rectum): (3) Ulcerative colitis: Plan 54 y/o female with pmh of ulcerative colitis, hx of PE/DVT on Eliquis, hypertension, anemia, C diff on oral Vancomycin hemorrhoids that presented here due to bright rectal blood per rectum. Was started on Lovenox due to noted DVT/PE, but was recently changed to Eliquis (02/01). On the day after this change in medications, she noted the rectal bleed had begun. Also currently tapering off steroids that was started after a recent UC flare. #Rectal bleeding/ hx of ulcerative colitis - Patient with know history of ulcerative colitis on prednisone taper - Patient with history of Pulmonary embolism and DVT and was started on Lovenox, which she tolerated well and had no bleeding while on it Recent change on anticoagulation from Lovenox and Eliquis on the day before onset. - Patient follows with [facility] for management of her UC as she has tried multiple medications in the past w/o success - Hgb 10.0 at time of admission and remained stable ~9 - Rectal bleeding has persisted but is improved compared to before admission; resolved today - CRP of 1.52 ; ESR of 42 - CTAP w/ wall thickening of the distal transverse colon, descending colon, and sigmoid colon, concerning for colitis, and surrounding pericolonic lymph nodes; wall thickening of small bowel loops in the left abdomen may be secondary to underdistention versus enteritis - s/p Methylprednisolone 40 mg IV x1 - Will discharge today with continuation of home prednisone, and patient advised to stop Eliquis and go back to Lovenox 30 mg daily SubQ as she was using prior to switching to DOAC #hx of PE/ DVT - Diagnosed on 10/2024 at [facility] - Was on Heparin drip during admission - Will transition back to lovenox at time of admission until completion of treatment for DVT/PE (6 months) #C diff - PO Vancomycin 250 mg BID continue #Hypothyroidism - -Continue Synthroid #Nasal congestion -Continue Fluticasone and Cetirizine -Tylenol PRN Discharge home today. Total Time Total Time Spent Total Time Spent (In Minutes): as per attending attestation. Discharge Plan Discharge Items Patient Disposition: Home - Self-Care Reason For Visit: GIB Discharge Diagnosis: ulcerative colitis Condition on Discharge: Fair Activity: Per Instructions section Non-emergency contact: Primary Care Provider and Manager Technical Call non-emergency contact if: your symptoms worsen and your temperature is above 101.5 Follow-up/Referrals: Laura Verde, [Primary Care Provider] - (patient will make follow up appointment with her PCP.) Diet: Regular Addtl Attending Provider Instructions: You were admitted to the hospital due to noted blood mixed in your stool, which we believe is related to your known ulcerative colitis (UC) plus the recent addition of Eliquis. Once we stopped your Eliquis, your bleeding also stopped, and your blood count remained stable. We discussed with our gastroenterologists as well, and they also believe this could have been related to your UC, and recommended we ... Therefore, we will be discharging you today with recommendations to follow up with your primary care provider and your digital controls technical officer. We advise you to stop taking Eliquis, and instead to go back to using Lovenox 30 mg every 12 hours like you were prior to starting this other medication. A discharge summary will be sent to your primary care physician to ensure continuity of care. Please bring this discharge summary with you to your next office appointment so that your provider can review it at that time. CONTACT YOUR PRIMARY CARE PROVIDER if you experience any of the following: Worsening of symptoms Fever, chills, or fatigue Difficulty following your treatment plan, or difficulty taking medications CALL 911 OR GO TO THE EMERGENCY DEPARTMENT if you experience any of the following: Sudden, severe abdominal pain or nausea/vomiting Severe chest pain, or chest pain that radiates (moves) to your jaw or arm Sudden, severe shortness of breath or difficulty breathing Thank you for allowing us to participate in your care. Pending Studies at Discharge: No Stand-Alone Forms: [employer], Smoking Cessation Medications and DC Order Prescriptions: New enoxaparin [Lovenox] 100 mg/mL syringe 30 mg subcut Q12H Qty: 18 0RF Continued acetaminophen [Tylenol 8 Hour] 650 mg tablet extended release 650 mg PO DIRECTED PRN (Reason: Pain) fluoxetine 40 mg capsule 40 mg PO DAILY levothyroxine [Synthroid] 175 mcg tablet 175 mcg PO QAM Rx Instructions: MUST BE NAME BRAND cetirizine [Zyrtec] 10 mg Tablet 10 mg PO DAILY fluticasone propionate [Flonase Allergy Relief] 50 mcg/actuation [place],Suspension 1 spray INTRANASAL DAILY PRN (Reason: Nasal Congestion) Rx Instructions: administer into each nostril cyanocobalamin (vitamin B-12) 500 mcg Tablet 1,000 mcg PO QAM Qty: 30 0RF folic acid 1 mg Tablet 1 mg PO QAM Qty: 30 0RF infliximab [Remicade] 100 mg Recon Soln 100 mg IV DIRECTED Rx Instructions: EVERY 8 WEEKS AFTER LOAD prednisone 5 mg tablet 5 mg PO DAILY vancomycin 125 mg capsule 125 mg PO BID Rx Instructions: STARTED 01/17/25 Discontinued Eliquis 5 mg tablet 5 mg PO BID Rx Instructions: STARTED 02/01/25, AFTER BEING ON LOVENOX. Discharge Orders: Discharge Order (Routine); Ordered 02/06/25 Ordered By: Chelsea Gomez Admission Data Admit Date/Time: 02/04/25 22:43 Attending Provider: David Muñoz Admit Provider: Roosevelt Ross Primary Care Provider: Laura Verde Other Providers: Kandi Weiner; Albino Olivera I Other Interventions: Discharge Summary Assessment (RN) Last Done: 02/06/25 17:08 Supervising Physician Co-Signing Physician Notes Attending attestation Pt seen and examined in concert with Dr. Dev Ghotra. In agreement with the documented findings as noted in the resident documentation with any exceptions or additions as noted here. No acute complaints at time of examination. VS as noted. On examination, S1/S2 nl RRR no MCG. CTAB. Abd NT/ND BS+ve BRBPR w/ h/o ulcerative colitis - GI consult - continue prednisone Acute/subacute PE/DVT - s/p heparin drip, will start Lovenox on discharge and encourage close monitoring w/ precautions for worsening sx/changes Else see resident documentation as noted. Total attending physician time spent with this patient's care on the day of discharge: 35 minutes. Resident Activity Tracking Resident Involvement: Resident Care Provided Care Provided: Adult [facility]
[2025-02-06 14:32] LABS: ANTI-Xa, UFH(UnfractionatedHep 0.20 IU/ml (0.3-0.7)
[2025-02-06 14:46] VITALS: PULSE 66; RESP 20; TEMP 97.7; O2SAT 96
[2025-02-06] MEDS: ENOXAPARIN INJ 30 MG/0.3 ML SYR SQ ONE (16:08)
--- NOTE | 2025-02-06 16:26 | Communication Note ---
Date of Service: February 06, 2025 Patient to be discharged today. Visited patient with Dr. Olivera. She is improved. She has follow-up appointment (virtually) with [facility] next week. She will proceed with that. She notes resolution of rectal bleeding.
[2025-02-06 17:09] VITALS: BP 121/80
--- NOTE | 2025-02-07 13:28 | Coding Query ---
ANEMIA To promote full compliance with coding requirements relating to patient care, physician participation is requested in all cases of shingle inspector uncertainty. Please assist us with the question(s) below: Coding Question(s): The record notes anemia, type not specified. Please specify type, if known. If these findings are indicative of anemia, please specify the known or suspected type by placing an "X" within the parenthesis (x). If other, please document type. Examples are: ( ) Acute blood loss anemia ( ) Chronic blood loss anemia ( ) Anemia of chronic disease ( ) Aplastic anemia ( ) Iron deficient anemia ( ) Anemia, unspecified or other ( ) Other: (please specify) Acute on chronic microcytic anemia, multifactorial with blood loss anemia Thank you Lynnette SALTER
--- NOTE | 2025-02-07 13:35 | Coding Query ---
CODING QUERY To promote full compliance with coding requirements relating to patient care, provider participation is requested in all cases of barber stylist uncertainty. Please assist us with the question(s) below: Coding Question(s): Documentation: Was started on Lovenox due to noted DVT/PE, but was recently changed to Eliquis (02/01). On the day after this change in medications, she noted the rectal bleed had begun. Also currently tapering off steroids that was started after a recent UC flare. In your clinical opinion is there a cause and effect relationship between the patient's hemorrhage and initiating Eliquis? Physician's Response(s): ( ) Hemorrhage and Eliquis coexist (without [id number] relationship) (X) Hemorrhage is due to Eliquis (with [id number] relationship) ( ) Other, please specify ( ) Unable to determine Thank you Lynnette Medina Principal Diagnosis: "that condition established after study, to be chiefly responsible for occasioning the admission of the patient to the hospital for care." Co-Existing Principal Diagnosis: "when two or more diagnoses equally meet the criteria for principal diagnosis as determined by the circumstances of admission, diagnostic work up, and/or therapy provided, and the Alphabetic Index, Tabular List, or another coding guideline does not provide sequencing direction, any one of the diagnoses may be sequenced first." "When the physician has documented what appears to be a current diagnosis in the body of the record, but has not included the diagnosis in the final diagnostic statement, the physician should be asked whether the diagnosis should be added." (Source Coding [facility] 2 QTR90. p3-4) JOIE
== END 2025-02-06 18:03 | disposition home or self-care (01) | DRG 386 ==
LOC: ED 19:41 → EDINP 22:43 → SUATTDRO 22:43 → 2S 02-05 13:29